=== PATIENT | male | born 1965 | race Caucasian/White ===

== ENCOUNTER 2023-05-13 14:55 | Outpatient (AMB) | payer BC, SELFPAY ==
--- NOTE | 2023-05-13 15:05 | A.OFFVIS_ITS ---
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 Newberry. He has a past medical history of prediabetes, paralysis of the right diaphragm, scoliosis, ED, hyperparathyroidism, asthma, nephrolithiasis, obstructive sleep apnea, hypertension, and obesity. He presents to the office today as a new patient for nephrolithiasis. In discussion with the patient today reports to be doing and feeling well. He reports previously following up with [facility] for the last 12-15 years for his longstanding history of nephrolithiasis. He discusses having a bad experience over this last year and would like to establish urology care. When asked he reports having had multiple previous surgical interventions for nephrolithiasis. He reports noting bilateral flank pain over the last few months however discusses this to be manageable. He otherwise denies any bothersome urinary issues or concerns. He denies urinary urgency, urinary frequency, incontinence, nocturia, hematuria, dysuria, foul smelling urine, changes to urinary stream, fever, and or chills. He is happy with his current voiding parameters. In office urinalysis results reviewed with the patient today. Discussed and stressed the importance of drinking plenty of water daily and adding 1 oz of lemon juice to water daily. Discussed obtaining renal ultrasound for further assessment evaluation. When asked patient reports PCP to be following PSAs annually. He otherwise offers no other issues or concerns at this time. [facility] Medical History Pre-diabetes Paralysis Scoliosis Erectile dysfunction History of hyperparathyroidism Asthma History of kidney stones Obstructive sleep apnea Essential (primary) hypertension Morbid (severe) obesity due to excess calories Review of Systems Const Reports as per HPI Eyes Reports no additional complaints ENT Reports no additional complaints Card Reports as per HPI Resp Reports as per HPI GI Reports no additional complaints Reports as per HPI Musc Reports no additional complaints Neuro Reports no additional complaints Psych Reports no additional complaints Endo Reports as per HPI Physical Exam Const General: cooperative, healthy appearing, comfortable, no acute distress, well developed, alert and awake Orientation/consciousness: patient oriented x3 Limitations: no limitations HEENT Head: Yes normal to inspection, Yes normocephalic and Yes atraumatic Ears: hearing grossly normal bilaterally Eyes General: appearance normal, both eyes and all related structures Neck Neck: Yes normal visual inspection and Yes trachea midline Chest Chest palpation & inspection: normal inspection of the chest Resp Effort & Inspection: normal respiratory effort and able to speak in complete sentences Cardio Rate: regular rate GI Inspection: Yes normal to inspection General: Yes no CVA tenderness Back/Spine/Pelvis Back: no CVA tenderness Skin General skin exam: no rashes or lesions noted Neuro General: patient oriented x3 Extrem General: Yes normal to inspection Psych Appearance: grossly normal and well kempt Mental Status: mental status grossly normal Speech and movement: Normal speech and movement present and Clear speech present Affect: normal affect Attitude: cooperative Thought process: Normal thought process present Thought content: Normal thought content present Insight: Fair insight present (Psych) Judgement: Fair judgement present (Psych) Results AMB Urinalysis, Automated UA Leukoctes 0 Elie/uL Last Edit by [employer] on 05/13/23 16:10 UA Nitrite Negative Last Edit by [employer] on 05/13/23 16:10 UA Urobilinogen 0.2 mg/dL Last Edit by [employer] on 05/13/23 16:10 UA Protein 0 mg/dL Last Edit by [employer] on 05/13/23 16:10 UA pH 6.0 Last Edit by [employer] on 05/13/23 16:10 UA Blood 0 Yosef/uL Last Edit by [employer] on 05/13/23 16:10 UA Specific [place] 1.020 Last Edit by [employer] on 05/13/23 16:10 UA Ketone Negative Last Edit by [employer] on 05/13/23 16:10 UA Bilirubin 0 mg/dL Last Edit by Jovita Gomez on 05/13/23 16:10 UA Glucose 0 mg/dL Last Edit by Jovita Gomez on 05/13/23 16:10 Results Reviewed Results Reviewed: Laboratory Last Values Urine pH (Auto) 6.0 05/13/23 15:06 Specific [place] (Auto) 1.020 05/13/23 15:06 Urine Protein (Auto) 0 mg/dL 05/13/23 15:06 Glucose (UA)(Auto) 0 mg/dL 05/13/23 15:06 Urine Ketones (Auto) Negative 05/13/23 15:06 Urine Blood (Auto) 0 Yosef/uL 05/13/23 15:06 Urine Nitrite (Auto) Negative 05/13/23 15:06 Urine Bilirubin (Auto) 0 mg/dL 05/13/23 15:06 Urine Urobilinogen (Auto) 0.2 mg/dL 05/13/23 15:06 Leukocyte Esterase (Auto) 0 Elie/uL 05/13/23 15:06 Assessment & Plan Assessment & Plan (1) Nephrolithiasis: Code(s): N20.0 - Calculus of kidney Plan In office urinalysis results reviewed with the patient today; as noted above. Will obtain renal ultrasound for further assessment evaluation. Discussed, stress, and educated on the importance of drinking plenty of water daily. Discussed adding 1 oz of lemon juice to water daily. Patient denies any bothersome urinary issues at this time. He is happy with his current voiding parameters. Follow-up in 1-2 months with imaging to be completed prior; or sooner with any issues, concerns, and or questions. Orders: Orders US renal BI Today N20.0 - Calculus of kidney AMB Urinalysis Automated Today Z13.9 - Encounter for screening, unspecified Patient Instructions: The patient had an opportunity to ask questions regarding the treatment plan. All questions were answered. Physical exam, labs, and imaging were discussed and reviewed in detail. As well as risks, benefits, and discussion of treatment choices. No major barriers to understanding were identified. The patient expressed understanding and agreement with the above treatment plan. The patient was made aware they should contact our office by phone for worsening of their current condition, the appearance of new symptoms, or with any questions or concerns. Compliance is encouraged with any medications and follow up testing that is ordered. It is a privilege to be allowed the opportunity to participate in? your urological care.? Again, if you have any questions or concerns If you have any questions or concerns please do not hesitate to contact me. The office is [phone]. This note is constructed using voice recognition software. While every effort has been made to ensure accuracy composition instructor errors may have been included. Yours sincerely, JUDITH Gaming Coding Level of Care Code New Pt Level 3 (95768) Diagnoses Nephrolithiasis N20.0
== END 2023-05-13 16:11 | disposition home or self-care (01) ==
PROVIDERS: PCP Internal Medicine; Visit Provider Nurse Practitioner Family
DX: Z13.9 Encounter for screening, unspecified (principal); N20.0 Calculus of kidney
CPT/HCPCS: 99203

== ENCOUNTER → 2023-05-13 14:55 | Outpatient (BNVA) | payer BC, SELFPAY | PROVIDERS: PCP Internal Medicine; Visit Provider Nurse Practitioner Family | DX: N20.0 Calculus of kidney (principal) | CPT/HCPCS: 81003 ==

== ENCOUNTER 2023-05-25 15:08 | Outpatient (REF) | payer BC, SELFPAY ==
--- NOTE | ~2023-05-25 | US_ITS ---
EXAMINATION: US RETROPERITONEAL LIMITED (RENAL ONLY) CLINICAL INFORMATION: Calculus of kidney. COMPARISON: None available. TECHNIQUE: Real-time imaging of the kidneys. Limited visualization due to bowel gas. FINDINGS: RIGHT KIDNEY: 12.9 x 6.6 x 6.0 cm (SAG x AP x TRV). No hydronephrosis. No renal calculi. Renal cortical thickness is normal. Limited visualization. LEFT KIDNEY: 12.9 x 7.4 x 6.7 cm (SAG x AP x TRV). No hydronephrosis. No renal calculi. Renal cortical thickness is normal. Limited visualization. 2.7 x 2.8 x 2.9 cm midpole cyst with benign features. 5.4 x 4.5 x 5.4 cm upper pole cyst with thin septation. 1.3 x 0.8 x 1.6 cm midpole cyst with benign features. There is no indication for followup imaging. US/US renal BI IMPRESSION: No hydronephrosis. No renal calculi. Limited visualization.
== END 2023-05-25 15:09 | disposition home or self-care (01) ==
LOC: HO.HMGCX 15:08
PROVIDERS: PCP Internal Medicine; Visit Provider Nurse Practitioner Family
DX: N20.0 Calculus of kidney (principal)
CPT/HCPCS: 76775

== ENCOUNTER 2023-06-16 14:55 | Outpatient (AMB) | payer BC, SELFPAY ==
--- NOTE | 2023-06-16 15:08 | A.OFFVIS_ITS ---
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 Newberry. He has a past medical history of prediabetes, paralysis of the right diaphragm, scoliosis, ED, hyperparathyroidism, asthma, nephrolithiasis, obstructive sleep apnea, hypertension, and obesity. He presents to the office today for follow-up. Of note, patient was seen approximately 1 month ago as a new patient for nephrolithiasis at which time a renal ultrasound was ordered for further assessment evaluation. These results reviewed with the patient today. Bilateral kidneys with no hydronephrosis and or calculi noted. Left kidney with 2.7 x 2.8 x 2.9 cm midpole cyst with benign features. 5.4 x 4.5 x 5.4 cm upper pole cyst with thin septation. 1.3 x 0.8 x 1.6 cm midpole cyst with benign features. There is no indication for followup imaging recommended per radiology report. When asked he continues to report right-sided flank pain/back pain. 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 Discussed pain likely related to back pain versus nephrolithiasis. He otherwise denies urinary urgency, urinary frequency, incontinence, nocturia, hematuria, dysuria, foul smelling urine, changes to urinary stream, fever, and or chills. He is happy with his current voiding parameters. In office urinalysis results reviewed with the patient today. Discussed and stressed the importance of drinking plenty of water daily and adding 1 oz of lemon juice to water daily. When asked patient reports PCP to be following PSAs annually. He otherwise offers no other issues or concerns at this time. [facility] Medical History Pre-diabetes Paralysis Scoliosis Erectile dysfunction History of hyperparathyroidism Asthma History of kidney stones Obstructive sleep apnea Essential (primary) hypertension Morbid (severe) obesity due to excess calories Review of Systems Const Reports as per HPI Eyes Reports no additional complaints ENT Reports no additional complaints Card Reports as per HPI Resp Reports as per HPI GI Reports no additional complaints Reports as per HPI Musc Reports no additional complaints Neuro Reports no additional complaints Psych Reports no additional complaints Endo Reports as per HPI Physical Exam Const General: cooperative, healthy appearing, comfortable, no acute distress, well developed, alert and awake Orientation/consciousness: patient oriented x3 Limitations: no limitations HEENT Head: Yes normal to inspection, Yes normocephalic and Yes atraumatic Ears: hearing grossly normal bilaterally Eyes General: appearance normal, both eyes and all related structures Neck Neck: Yes normal visual inspection and Yes trachea midline Chest Chest palpation & inspection: normal inspection of the chest Resp Effort & Inspection: normal respiratory effort and able to speak in complete sentences Cardio Rate: regular rate GI Inspection: Yes normal to inspection General: Yes no CVA tenderness Back/Spine/Pelvis Back: no CVA tenderness Skin General skin exam: no rashes or lesions noted Neuro General: patient oriented x3 Extrem General: Yes normal to inspection Psych Appearance: grossly normal and well kempt Mental Status: mental status grossly normal Speech and movement: Normal speech and movement present and Clear speech present Affect: normal affect Attitude: cooperative Thought process: Normal thought process present Thought content: Normal thought content present Insight: Fair insight present (Psych) Judgement: Fair judgement present (Psych) Results AMB Urinalysis, Automated UA Leukoctes 15 Elie/uL Last Edit by Jovita Gomez on 06/16/23 15:29 UA Nitrite Negative Last Edit by Jovita Gomez on 06/16/23 15:29 UA Urobilinogen 0.2 mg/dL Last Edit by Jovita Gomez on 06/16/23 15:29 UA Protein 0 mg/dL Last Edit by Jovita Gomez on 06/16/23 15:29 UA pH 7.5 Last Edit by Jovita Gomez on 06/16/23 15:29 UA Blood 0 Yosef/uL Last Edit by Jovita Gomez on 06/16/23 15:29 UA Specific [place] 1.010 Last Edit by Jovita Gomez on 06/16/23 15:29 UA Ketone Negative Last Edit by Jovita Gomez on 06/16/23 15:29 UA Bilirubin 0 mg/dL Last Edit by oJvita Gomez on 06/16/23 15:29 UA Glucose 0 mg/dL Last Edit by Jovita Gomez on 06/16/23 15:29 Results Reviewed Results Reviewed: Laboratory Last Values Urine pH (Auto) 7.5 06/16/23 15:11 Specific [place] (Auto) 1.010 06/16/23 15:11 Urine Protein (Auto) 0 mg/dL 06/16/23 15:11 Glucose (UA)(Auto) 0 mg/dL 06/16/23 15:11 Urine Ketones (Auto) Negative 06/16/23 15:11 Urine Blood (Auto) 0 Yosef/uL 06/16/23 15:11 Urine Nitrite (Auto) Negative 06/16/23 15:11 Urine Bilirubin (Auto) 0 mg/dL 06/16/23 15:11 Urine Urobilinogen (Auto) 0.2 mg/dL 06/16/23 15:11 Leukocyte Esterase (Auto) 15 Eile/uL 06/16/23 15:11 Date of Service: 05/25/23 EXAMINATION: US RETROPERITONEAL LIMITED (RENAL ONLY) FINDINGS: RIGHT KIDNEY: 12.9 x 6.6 x 6.0 cm (SAG x AP x TRV). No hydronephrosis. No renal calculi. Renal cortical thickness is normal. Limited visualization. LEFT KIDNEY: 12.9 x 7.4 x 6.7 cm (SAG x AP x TRV). No hydronephrosis. No renal calculi. Renal cortical thickness is normal. Limited visualization. 2.7 x 2.8 x 2.9 cm midpole cyst with benign features. 5.4 x 4.5 x 5.4 cm upper pole cyst with thin septation. 1.3 x 0.8 x 1.6 cm midpole cyst with benign features. There is no indication for followup imaging. IMPRESSION: No hydronephrosis. No renal calculi. Limited visualization. Assessment & Plan Assessment & Plan (1) Nephrolithiasis: Code(s): N20.0 - Calculus of kidney (2) Renal cyst: Code(s): N28.1 - Cyst of kidney, acquired Plan In office urinalysis results reviewed with the patient today; as noted above. Recent renal imaging results reviewed with the patient today; as noted above. Will continue with surveillance monitoring as discussed. Educated, and encouraged on the importance of drinking plenty of water daily. Continue adding 1 oz of lemon juice to water daily. Patient denies any bothersome urinary issues at this time. He reports be happy with current voiding parameters. Will obtain renal ultrasound in 1 year. Follow-up in 1 year with imaging to be completed prior; or sooner with any issues, concerns, and or questions Orders: Orders AMB Urinalysis Automated Today Z13.9 - Encounter for screening, unspecified US renal BI 364 Days N20.0 - Calculus of kidney, N28.1 - Cyst of kidney, acquired Patient Instructions: The patient had an opportunity to ask questions regarding the treatment plan. All questions were answered. Physical exam, labs, and imaging were discussed and reviewed in detail. As well as risks, benefits, and discussion of treatment choices. No major barriers to understanding were identified. The patient expressed understanding and agreement with the above treatment plan. The patient was made aware they should contact our office by phone for worsening of their current condition, the appearance of new symptoms, or with any questions or concerns. Compliance is encouraged with any medications and follow up testing that is ordered. It is a privilege to be allowed the opportunity to participate in? your urological care.? Again, if you have any questions or concerns If you have any questions or concerns please do not hesitate to contact me. The office is [phone]. This note is constructed using voice recognition software. While every effort has been made to ensure accuracy showroom consultant errors may have been included. Yours sincerely, JUDITH Gaming Coding Level of Care Code Est Pt Level 3 (58271) Diagnoses Nephrolithiasis N20.0 Renal cyst N28.1
== END 2023-06-16 15:38 | disposition home or self-care (01) ==
PROVIDERS: PCP Internal Medicine; Visit Provider Nurse Practitioner Family
DX: N20.0 Calculus of kidney (principal); N28.1 Cyst of kidney, acquired; Z13.9 Encounter for screening, unspecified
CPT/HCPCS: 99213

== ENCOUNTER → 2023-06-16 14:55 | Outpatient (BNVA) | payer BC, SELFPAY | PROVIDERS: PCP Internal Medicine; Visit Provider Nurse Practitioner Family | DX: N20.0 Calculus of kidney (principal); N28.1 Cyst of kidney, acquired; R73.03 Prediabetes | CPT/HCPCS: 81003 ==

== ENCOUNTER 2024-06-10 15:17 | Outpatient (REF) | payer BC, SELFPAY ==
--- NOTE | ~2024-06-10 | US_ITS ---
EXAMINATION: US RETROPERITONEAL LIMITED (RENAL ONLY) CLINICAL INFORMATION: Calculus of kidney. COMPARISON: Renal ultrasound 05/25/2023. TECHNIQUE: Real-time imaging of the kidneys. FINDINGS: RIGHT KIDNEY: 12.0 x 6.8 x 5.8 cm (SAG x AP x TRV). The kidney is normal in size and contour. Renal cortical thickness is normal. No calculi or focal parenchymal lesions. No hydronephrosis. LEFT KIDNEY: 14.0 x 8.1 x 6.9 cm (SAG x AP x TRV). The kidney is normal in size and contour. Renal cortical thickness is normal. No renal calculi or hydronephrosis. 5.4 cm cyst in the upper pole with questionable wall calcification. A 3.4 cm cyst in the midpole of the left kidney. US/US renal BI IMPRESSION: 1. No renal calculi or hydronephrosis. 2. 5.4 cm cyst in the upper pole of the left kidney with questionable wall calcification. 3.4 cm cyst in the midpole of the left kidney. Electronically signed by: Rohan Marr MD 06/11/2024 08:06 AM EDT
== END 2024-06-10 15:18 | disposition home or self-care (01) ==
LOC: HO.HMGCX 15:17
PROVIDERS: PCP Internal Medicine; Visit Provider Nurse Practitioner Family
DX: N20.0 Calculus of kidney (principal); N28.1 Cyst of kidney, acquired
CPT/HCPCS: 76775

== ENCOUNTER 2024-06-16 14:38 | Outpatient (AMB) | payer BC, SELFPAY ==
--- NOTE | 2024-06-16 15:03 | A.OFFVIS_ITS ---
Intake Visit Reasons: 1y/US(pending 06/10) Intake Note: Patient presents today for follow up on: kidney stones and ultrasound results Imaging Completed: 06/10/24 Urology Medications: none Blood Thinner: none Corrections Specialist Required: No Accompanied by: Self / Same As Patient Allergies No Known Allergies Allergy (Verified 06/19/24 10:33) Medication List - Last Reconciled 06/19/24 by JUDITH Gaming dulaglutide (Trulicity) mg subcut fluticasone propion-salmeterol 100-50 mcg/dose (Wixela Inhub) 1 ea inhalation BID furosemide 40 mg PO DAILY losartan 50 mg PO DAILY metoprolol succinate ER 25 mg PO DAILY zolpidem 5 mg PO BEDTIME PRN HPI Comments Details: Bjorn is a very pleasant 58-year-old male patient of Dr. Newberry. He has a past medical history of prediabetes, paralysis of the right diaphragm, scoliosis, ED, hyperparathyroidism, asthma, nephrolithiasis, obstructive sleep apnea, hypertension, and obesity. He presents to the office today for follow-up of his nephrolithiasis as well as renal cysts. Recent renal imaging results reviewed with the patient today. 07/03 bilateral kidneys with no calculi or hydronephrosis. Left kidney with 5.4 cm cyst in the upper pole with questionable wall calcification. A 3.4 cm cyst in the mid pole of the left kidney is noted. We discussed stability between imaging. He denies any bothersome urinary issues or concerns. He denies urinary urgency, urinary frequency, incontinence, nocturia, hematuria, dysuria, foul smelling urine, changes to urinary stream, fever, and or chills. He is happy with his current voiding parameters. When asked patient reports PCP to be following PSAs annually. He otherwise offers no other issues or concerns at this time. [facility] Medical History Pre-diabetes Paralysis Scoliosis Erectile dysfunction History of hyperparathyroidism Asthma History of kidney stones Obstructive sleep apnea Essential (primary) hypertension Morbid (severe) obesity due to excess calories Review of Systems Const Reports as per HPI Eyes Reports no additional complaints ENT Reports no additional complaints Card Reports as per HPI Resp Reports as per HPI GI Reports no additional complaints Reports as per HPI Musc Reports no additional complaints Neuro Reports no additional complaints Psych Reports no additional complaints Endo Reports as per HPI Physical Exam Const General: cooperative, healthy appearing, comfortable, no acute distress, well developed, alert and awake Orientation/consciousness: patient oriented x3 Limitations: no limitations HEENT Head: Yes normal to inspection, Yes normocephalic and Yes atraumatic Ears: hearing grossly normal bilaterally Eyes General: appearance normal, both eyes and all related structures Neck Neck: Yes normal visual inspection and Yes trachea midline Chest Chest palpation & inspection: normal inspection of the chest Resp Effort & Inspection: normal respiratory effort and able to speak in complete sentences Cardio Rate: regular rate GI Inspection: Yes normal to inspection General: Yes no CVA tenderness Back/Spine/Pelvis Back: no CVA tenderness Skin General skin exam: no rashes or lesions noted Neuro General: patient oriented x3 Extrem General: Yes normal to inspection Psych Appearance: grossly normal and well kempt Mental Status: mental status grossly normal Speech and movement: Normal speech and movement present and Clear speech present Affect: normal affect Attitude: cooperative Thought process: Normal thought process present Thought content: Normal thought content present Insight: Fair insight present (Psych) Judgement: Fair judgement present (Psych) Results Reviewed Results Reviewed: Date of Service: 06/10/24 EXAMINATION: US RETROPERITONEAL LIMITED (RENAL ONLY) FINDINGS: RIGHT KIDNEY: 12.0 x 6.8 x 5.8 cm (SAG x AP x TRV). The kidney is normal in size and contour. Renal cortical thickness is normal. No calculi or focal parenchymal lesions. No hydronephrosis. LEFT KIDNEY: 14.0 x 8.1 x 6.9 cm (SAG x AP x TRV). The kidney is normal in size and contour. Renal cortical thickness is normal. No renal calculi or hydronephrosis. 5.4 cm cyst in the upper pole with questionable wall calcification. A 3.4 cm cyst in the midpole of the left kidney. IMPRESSION: 1. No renal calculi or hydronephrosis. 2. 5.4 cm cyst in the upper pole of the left kidney with questionable wall calcification. 3.4 cm cyst in the midpole of the left kidney. Assessment & Plan Assessment & Plan (1) Renal cyst: Code(s): N28.1 - Cyst of kidney, acquired Category: Medical (2) Nephrolithiasis: Code(s): N20.0 - Calculus of kidney Category: Medical Plan Unable to obtain urine for urinalysis as patient unable to void. Recent renal imaging results reviewed with the patient today; as noted above. Patient currently denies any bothersome urinary issues or concerns. He reports be happy with current voiding parameters. He continues to follow-up with his PSAs with his PCP. Will obtain renal ultrasound in 1 year. Follow-up in 1 year with imaging to be completed prior; or sooner with any iss ues, concerns, and or questions. Orders: Orders US renal BI 1 Year N20.0 - Calculus of kidney, N28.1 - Cyst of kidney, acquired Patient Instructions: The patient had an opportunity to ask questions regarding the treatment plan. All questions were answered. Physical exam, labs, and imaging were discussed and reviewed in detail. As well as risks, benefits, and discussion of treatment choices. No major barriers to understanding were identified. The patient expressed understanding and agreement with the above treatment plan. The patient was made aware they should contact our office by phone for worsening of their current condition, the appearance of new symptoms, or with any questions or concerns. Compliance is encouraged with any medications and follow up testing that is ordered. It is a privilege to be allowed the opportunity to participate in? your urological care.? Again, if you have any questions or concerns If you have any questions or concerns please do not hesitate to contact me. The office is [phone]. This note is constructed using voice recognition software. While every effort has been made to ensure accuracy real estate leasing agent errors may have been included. Yours sincerely, JUDITH Gaming Coding Level of Care Code Est Pt Level 3 (49677) Diagnoses Renal cyst N28.1 Nephrolithiasis N20.0
== END 2024-06-16 15:24 | disposition home or self-care (01) ==
LOC: HO.HUSH 14:39
PROVIDERS: PCP Internal Medicine; Visit Provider Nurse Practitioner Family
DX: N28.1 Cyst of kidney, acquired (principal); N20.0 Calculus of kidney
CPT/HCPCS: 99213

== ENCOUNTER 2025-01-20 15:13 | Outpatient (REF) | payer BC, SELFPAY ==
--- NOTE | ~2025-01-20 | US_ITS ---
CLINICAL HISTORY: R97.20 - Elevated prostate specific antigen [PSA] renal cysts and stones US Renal Comparison: None Findings: Right kidney measures 12 cm x 6.9 cm Left kidney measures 12.2 cm x 6.9 cm Renal parenchyma within normal limits in echogenicity. No hydronephrosis. No definite renal stones. In the right kidney there are 3 simple anechoic cyst: 1.4 cm cyst in the midpole, 3.2 cm cyst in the midpole and 4.9 cm cyst in the upper pole. Normal color Doppler. Urinary bladder is unremarkable. Prevoid volume 586 mL. Postvoid volume 385 mL. Bilateral ureteral jets were not visualized. Prostate measures 4 cm x 4.5 cm by 4.2 cm. IMPRESSION: 1. No renal stones and no hydronephrosis bilaterally. 2. Left renal 3 simple cysts. 3. Postvoid residual volume 385 mL. This document has been electronically signed by: Brianne Du MD on 01/21/2025 21:20:50
--- OUTSIDE RECORDS SUMMARY | 2025-01-20 15:16 | XMS_ITS | Patient Health Record ---
Author Organization [facility] [address] Address [address] [place] [address] Care Team Providers Care Supervisor Nuclear Medicine Name Role Phone Carlota Guaman Unavailable [phone] LEXI NEWBERRY Unavailable [phone] AKINSROSALINA WILKINS Unavailable [phone] MARCELLA HOANG Unavailable [phone] Allergies No Known Allergies Results Component Value Reference Range Notes UA+Urine Culture Reviewed date:12/01/2024 11:52:16 AM Interpretation: Performing Lab:[facility], [address] [place] [address], Phone - [phone], Director - Shannon Notes/Report: Clinical Information:SRC:UC Clinical Information:SRC:UC Specific Moro 1.011 1.005-1.030 pH 6.0 5.0-7.5 Urine-Color Yellow Yellow Appearance Clear Clear WBC Esterase Negative Negative Protein Negative Negative/Trace Glucose Negative Negative Ketones Negative Negative Occult Blood Negative Negative Bilirubin Negative Negative Urobilinogen,Semi-Qn 0.2 0.2-1.0 mg/dL Nitrite, Urine Negative Negative Microscopic Examination Micr oscopic not indicated and not performed. Urine Culture, Routine Final report Result 1 Culture shows less than 10,000 colony forming units of bacteria per milliliter of urine. This colony count is not generally considered to be clinically significant. UA+Urine Culture Reviewed date:12/02/2024 09:20:22 AM Interpretation: Performing Lab:[facility], [address] [place] [address], [place], Phone - [phone], Director - Shannon Notes/Report: Clinical Information:SRC:UC Specific Moro TNP Test not performed. Patient was unable to provide a self-collected specimen for the requested testing. The following test(s) were not performed: pH TNP Test not perfor med Protein TNP Test not perfor med Glucose TNP Test not perfor med Ketones TNP Test not perfor med Urine Culture, Routine TNP Test not performed PPC Hemoglobin A1C Reviewed date:11/24/2024 02:37:25 PM Interpretation:5.2% Performing Lab: Notes/Report: 5.2% Giovanny Esquivel LP Default Reviewed date:03/22/2024 10:10:57 AM Interpretation: Performing Lab:[facility], [address] [facility], [place], Phone - [phone], Director - Shannon Notes/Report: Giovanny Esquivel LP Default A hand-written panel/profile was received from your office. In accordance with the [facility] Ambiguous Test Code Policy dated February 2003, we have completed your order by using the closest currently or formerly recognized AMA panel. We have assigned Lipid Panel, Test Code #302438 to this request. If this is not the testing you wished to receive on this specimen, please contact the [facility] Client Inquiry/Technical Services Department to clarify the test order. We appreciate your business. Comp. Metabolic Panel (14)-3 Reviewed date:12/02/2024 09:20:44 AM Interpretation: Performing Lab:[facility], [address] [facility], [place], Phone - [phone], Director - Shannon Notes/Report: Clinical Information:SRC: Glucose 105 70-99 mg/dL BUN 15 8-27 mg/dL Creatinine 0.80 0.76-1.27 mg/dL eGFR 101 >59 mL/min/1.73 BUN/Creatinine Ratio 19 10-24 Sodium 140 134-144 mmol/L Potassium 4.7 3.5-5.2 mmol/L Chloride 99 96-106 mmol/L Carbon Dioxide, Total 21 20-29 mmol/L Calcium 9.5 8.6-10.2 mg/dL Protein, Total 7.1 6.0-8.5 g/dL Albumin 4.8 3.8-4.9 g/dL Globulin, Total 2.3 1.5-4.5 g/dL Bilirubin, Total 0.7 0.0-1.2 mg/dL Alkaline Phosphatase 64 44-121 IU/L AST (SGOT) 28 0-40 IU/L ALT (SGPT) 27 0-44 IU/L Comp. Metabolic Panel (14)-3 Reviewed date:03/25/2024 12:05:17 PM Interpretation: Performing Lab[facility], [facility], Phone - [phone], Director - [facility] Notes/Report: Glucose 109 70-99 mg/dL BUN 14 6-24 mg/dL Creatinine 0.75 0.76-1.27 mg/dL eGFR 104 >59 mL/min/1.73 BUN/Creatinine Ratio 19 9-20 Sodium 143 134-144 mmol/L Potassium 4.4 3.5-5.2 mmol/L Chloride 103 96-106 mmol/L Carbon Dioxide, Total 24 20-29 mmol/L Calcium 9.2 8.7-10.2 mg/dL Protein, Total 6.9 6.0-8.5 g/dL Albumin 4.6 3.8-4.9 g/dL Globulin, Total 2.3 1.5-4.5 g/dL Bilirubin, Total 0.9 0.0-1.2 mg/dL Alkaline Phosphatase 69 44-121 IU/L AST (SGOT) 26 0-40 IU/L ALT (SGPT) 36 0-44 IU/L Lipid Panel-[id number] Reviewed date:03/22/2024 10:57:25 AM Interpretation: Performing Lab:[facility], [address] [facility], [place], Phone - [phone], Director - [facility] Notes/Report: Cholesterol, Total 200 100-199 mg/dL Triglycerides 83 0-149 mg/dL HDL Cholesterol 64 >39 mg/dL VLDL Cholesterol Kosta 15 5-40 mg/dL LDL Chol Calc (NIH) 121 0-99 mg/dL Ambig Abbrev CMP14 Default A hand-written panel/profile was received from your office. In accordance with the [facility] Policy dated February 2003, we have completed your order by using the closest currently or formerly recognized AMA panel. We have assigned Comprehensive Metabolic Panel (14), Test Code #[id number] to this request. If this is not the testing you wished to receive on this specimen, please contact the [facility] Client Inquiry/Technical Services Department to clarify the test order. We appreciate your business. CBC With Differential/Platel et-[id number] Reviewed date:12/02/2024 09:20:12 AM Interpretation: Performing Lab:[facility], [address] [facility], Phone - [phone], Director - MDGissely Notes/Report: Clinical Information:SRC: WBC 6.0 3.4-10.8 x10E3/uL RBC 4.72 4.14-5.80 x10E6/uL Hemoglobin 15.7 13.0-17.7 g/dL Hematocrit 44.7 37.5-51.0 % MCV 95 79-97 fL MCH 33.3 26.6-33.0 pg MCHC 35.1 31.5-35.7 g/dL RDW 12.1 11.6-15.4 % Platelets 225 150-450 x10E3/uL Neutrophils 58 Not Estab. % Lymphs 26 Not Estab. % Monocytes 11 Not Estab. % Eos 5 Not Estab. % Basos 0 Not Estab. % Neutrophils (Absolute) 3.5 1.4-7.0 x10E3/uL Lymphs (Absolute) 1.6 0.7-3.1 x10E3/uL Monocytes(Absolute) 0.6 0.1-0.9 x10E3/uL Eos (Absolute) 0.3 0.0-0.4 x10E3/uL Baso (Absolute) 0.0 0.0-0.2 x10E3/uL Immature Granulocytes 0 Not Estab. % Immature Grans (Abs) 0.0 0.0-0.1 x10E3/uL CBC With Differential/Platel et-[id number] Reviewed date:03/22/2024 11:18:12 AM Interpretation: Performing Lab:[facility], [address] [facility], [place], Phone - [phone], Director - Shannon Notes/Report: WBC 6.1 3.4-10.8 x10E3/uL RBC 4.91 4.14-5.80 x10E6/uL Hemoglobin 16.2 13.0-17.7 g/dL Hematocrit 48.0 37.5-51.0 % MCV 98 79-97 fL MCH 33.0 26.6-33.0 pg MCHC 33.8 31.5-35.7 g/dL RDW 12.5 11.6-15.4 % Platelets 233 150-450 x10E3/uL Neutrophils 67 Not Estab. % Lymphs 22 Not Estab. % Monocytes 9 Not Estab. % Eos 2 Not Estab. % Basos 0 Not Estab. % Neutrophils (Absolute) 4.1 1.4-7.0 x10E3/uL Lymphs (Absolute) 1.4 0.7-3.1 x10E3/uL Monocytes(Absolute) 0.6 0.1-0.9 x10E3/uL Eos (Absolute) 0.1 0.0-0.4 x10E3/uL Baso (Absolute) 0.0 0.0-0.2 x10E3/uL Immature Granulocytes 0 Not Estab. % Immature Grans (Abs) 0.0 0.0-0.1 x10E3/uL Urinalysis, Complete-[id number] Reviewed date:03/25/2024 12:06:32 PM Interpretation: Performing Lab:[facility] [place], [address] [place] [address], Phone - [phone], [facility] - [facility] Notes/Report: Specific Moro 1.010 1.005-1.030 pH 6.5 5.0-7.5 Urine-Color Yellow Yellow Appearance Clear Clear WBC Esterase Trace Negative Protein Negative Negative/Trace Glucose Negative Negative Ketones Negative Negative Occult Blood Negative Negative Bilirubin Negative Negative Urobilinogen,Semi-Qn 0.2 0.2-1.0 mg/dL Nitrite, Urine Negative Negative Microscopic Examination See below: Micr oscopic was indicated and was performed. WBC 0-5 0 - 5 /hpf RBC None seen 0 - 2 /hpf Epithelial Cells (non renal) None seen 0 - 10 /hpf Casts None seen None seen /lpf Bacteria None seen None seen/Few PSA Total+% Free-[id number] Reviewed date:12/07/2024 08:44:14 AM Interpretation: Performing Lab:[facility] [place], [address] [facility], [place], Phone - [phone], Director - MDJoy Notes/Report: Clinical Information:SRC: Prostate Specific Ag 6.1 0.0-4.0 ng/mL Neri ECLIA methodology. . According to the [employer], Serum PSA should decrease and remain at undetectable levels after radical prostatectomy. The AUA defines biochemical recurrence as an initial PSA value 0.2 ng/mL or greater followed by a subsequent confirmatory PSA value 0.2 ng/mL or greater. Values obtained with different assay methods or kits cannot be used interchangeably. Results cannot be interpreted as absolute evidence of the presence or absence of malignant disease. PSA, Free 0.97 N/A ng/mL Neri ECLIA met hodology. % Free PSA 15.9 The table below lists the probability of prostate cancer for men with non-suspicious SADIE results and total PSA between 4 and 10 ng/mL, by patient age (Daryl et al, ZACK 1998, 279:1542). % Free PSA 50-64 yr 65-75 yr 0.00-10.00% 56% 55% 10.01-15.00% 24% 35% 15.01-20.00% 17% 23% 20.01-25.00% 10% 20% >25.00% 5% 9% Please note: Daryl et al did not make specific recommendations regarding the use of percent free PSA for any other population of men. Request Problem TNP Test not performed. Patient was unable to provide a self-collected specimen for the requested testing. The following test(s) were not performed: TEST: [id number] UA+Urine Culture Lipid Panel-[id number] Reviewed date:12/02/2024 09:20:33 AM Interpretation: Performing Lab:[facility], [address] [place] [address], [place], Phone - [phone], Director - Shannon Notes/Report: Clinical Information:SRC:UC Cholesterol, Total 205 100-199 mg/dL Triglycerides 87 0-149 mg/dL HDL Cholesterol 64 >39 mg/dL VLDL Cholesterol Kosta 16 5-40 mg/dL LDL Chol Calc (NIH) 125 0-99 mg/dL Reason For Referral Diagnosis 1 Colon cancer screeni ng (Z12.11) [facility] [address] [facility] Referring Provider First Name LEXI Referring Provider Last Name NILAM Referring Provider Speciality Internal M edicine Referred Provider Specialty Gastroentero logy General Notes faxed to Nany Ferrari [facility] [id number], [phone], [phone], Neptali Riddle 08/18/2024 11:22:55 AM > Clinical Notes Stef Hernandez 12/2024 01:39:29 PM > [phone] phone, Stef Hernandez 09/14/2024 01:43:11 PM > I called the office, and they informed me that the patient is not due for a colonoscopy until July 2025. I relayed this information to the patient and provided the office phone number in case he wants to schedule a colonoscopy for next year Referral Priority Routine Medications Medication SIG (Take, Route, Frequency, Duration) Notes Start Date End Date Status Wixela Inhub 100-50 MCG/ACT INHALE 1 PUFF BY MOUTH TWICE DAILY for 90 days Active Zolpidem Tartrate 5 MG 1 tablet at bedtime as needed Orally Once a day for 90 days 11/24/2024 Active Mounjaro 7.5 MG/0.5ML 0.5ML Subcutaneous once weekly for 30 days replaces ozempic Active Cialis 20 MG 1 tablet as needed Orally Once a day as needed for 90 days 11/25/2021 Active Metoprolol Succinate ER 25 MG TAKE 1 TABLET BY MOUTH EVERY DAY for 90 days Active Losartan Potassium 50 MG TAKE 1 TABLET BY MOUTH DAILY for 90 days Active Furosemide 40 MG 1 tablet Orally Once a day for 90 days Active Immunizations Vaccine Route Administration Date Status Comme nts influenza IM Intramuscular 07/04/2024 Administered SHINGRIX IM Intramuscular 07/20/2023 Administered SHINGRIX IM Intramuscular 03/21/2024 Administered Social History Tobacco Use: Social History Observation Description Date Details (start date - stop date) Former Smoker NA - NA Tobacco Use/Smoking Question Answer Notes Are you a former smoker How long has it been since you last smoked? 5-10 years Alcohol Screen (Audit-C) Question Answer Notes Did you have a drink contain ing alcohol in the past year? Yes How often did you have a dri nk containing alcohol in the past year? 4 or more times a week (4 points) How many drinks did you have on a typical day when you were drinking in the past year? 3 or 4 drinks (1 point) How often did you have 6 or more drinks on one occasion in the past year? Daily or almost daily (4 points) Points 9 Interpretation Positive Section Notes: QUIT 2008 - 08/11 PPD FOR 20 Y RS. QUIT 08/11 PPD FOR 20 Y RS. QUIT 08/11 PPD FOR 20 Y RS. QUIT 08/11 PPD FOR 20 Y RS. QUIT 08/11 PPD FOR 20 Y RS. QUIT 08/11 PPD FOR 20 Y RS. QUIT 08/11 PPD FOR 20 Y RS. QUIT 2009 - 1/2 PPD FOR 20 Y RS. QUIT 2009 - 1/2 PPD FOR 20 Y RS. QUIT 2009 - 08/11 PPD FOR 20 Y RS. QUIT 2009 - 08/11 PPD FOR 20 Y RS. QUIT 2009 - 08/11 PPD FOR 20 Y RS. QUIT 2009 - 08/11 PPD FOR 20 Y RS. QUIT 2009 - 08/11 PPD FOR 20 Y RS. QUIT 2009 - 08/11 PPD FOR 20 Y RS. QUIT 2009 - 08/11 PPD FOR 20 Y RS. QUIT 2009 - 08/11 PPD FOR 20 Y RS. QUIT 2009 - 08/11 PPD FOR 20 Y RS. QUIT 2009 - 08/11 PPD FOR 20 Y RS. QUIT 2009 - 08/11 PPD FOR 20 Y RS. QUIT 2009 - 08/11 PPD FOR 20 Y RS. QUIT 2009 - 08/11 PPD FOR 20 Y RS. QUIT 2009 - 08/11 PPD FOR 20 Y RS. QUIT 2009 - 08/11 PPD FOR 20 Y RS. QUIT 2009 - 08/11 PPD FOR 20 Y RS. QUIT 2009 - 08/11 PPD FOR 20 Y RS. QUIT 2009 - 08/11 PPD FOR 20 Y RS. QUIT 2009 - 08/11 PPD FOR 20 Y RS. QUIT 2009 - 08/11 PPD FOR 20 Y RS. QUIT 2009 - 08/11 PPD FOR 20 Y RS. QUIT 2008 - 08/11 PPD FOR 20 Y RS. QUIT 2009 - 08/11 PPD FOR 20 Y RS. QUIT 2009 - 08/11 PPD FOR 20 Y RS. QUIT 2009 - 08/11 PPD FOR 20 Y RS. Problems Problem Type SNOMED Code ICD Code Onset Dates Problem Status W/U Status Risk Notes Problem 48459583 Type 2 diabetes mellitus with unspecified complications (E11.8) Active confirmed Problem Hyperlipidemia (05744666) Hyperlipidemia, unspecified (E78.5) Active confirmed Problem 418935605 Other insomnia (G47.09) Active confirmed Problem 27335644 Other chronic pa in (G89.29) Active confirmed Problem Essential hypertension (33105174) Essential (primary) hypertension (I10) Active confirmed Problem Exacerbation of asthma (389253982) Unspecified asthma with (acute) exacerbation (J45.901) Active confirmed Problem 983866236 Encounter for [facility] adult medical examination without abnormal findings (Z00.00) Active confirmed Problem Body mass index 40+ - severely obese (358293085) Body mass index (BMI) 40.0-44.9, adult (Z68.41) Active confirmed Problem Morbid obesity (953706920) Morbid obesity (E66.01) Active confirmed Problem 37330236 Hyperlipidemia, unspecified hyperlipidemia type (E78.5) Active confirmed Problem 8547679 Acquired hyperlipoproteinemia (E78.5) Active confirmed Problem Adult health examination (792773729) Adult general medical exam (Z00.00) Active confirmed Problem Annual health maintenance examination (27601214) Annual physical exam (Z00.00) Active confirmed Problem Accelerated essential hypertension (30677372) Accelerated essential hypertension (I10) Active confirmed Problem 655118331 Erectile dysfunc tion, unspecified erectile dysfunction type (N52.9) Active confirmed Problem Aneurysm (19659846) Aneurysm (I72.9) Active confirmed Problem Renal stone (60875099) Renal stone (N20.0) Active confirmed Problem 996039850 Mild persistent asthma without complication (J45.30) Active confirmed Problem 530003301 Obesity, Class I II, BMI 40-49.9 (morbid obesity) (E66.01) Active confirmed Problem Screening for malignant neoplasm of prostate (882845316) Encounter for prostate cancer screening (Z12.5) Active confirmed Problem Lipid screening (331387331) Lipid screening (Z13.220) Active confirmed Problem 855251765 Lumbar back pain (M54.50) Active confirmed Vital Signs Heart Rate 76 /min 01/04/2025 Oximetry 96 % 01/04/2025 Blood pressure diastolic 80 mm Hg 01/04/2025 Height 66 in 01/04/2025 Blood pressure systolic 120 mm Hg 01/04/2025 Weight 270 lbs 01/04/2025 BMI 43.57 kg/m2 01/04/2025 Encounters Encounter Location Date Provider Diagnosis [facility] [address] [place] [address] 03/21/2024 LEXI NEWBERRY Type 2 diabetes jessica itus with unspecified complications E11.8 ; Shortness of breath R06.02 ; Hyperlipidemia, unspecified E78.5 ; Essential (primary) hypertension I10 ; Adult general medical exam Z00.00 and Encounter for immunization Z23 [facility] [address] [place] [phone] 05/10/2024 MARCELLA HOANG Soft tissue infectio n L08.[address] [facility] [address] [place] [address] 07/04/2024 LEXI NEWBERRY Shortness of breath R06.02 ; Hyperlipidemia, unspecified E78.5 ; Morbid obesity E66.01 ; Body mass index (BMI) 40.0-44.9, adult Z68.41 and Encounter for immunization Z23 [facility] [address] 08/18/2024 LEXI NEWBERRY Annual physical exam Z00.00 ; Lipid screening Z13.220 ; Accelerated essential hypertension I10 ; Encounter for prostate cancer screening Z12.5 and Morbid obesity E66.01 [facility] [address] 10/24/2024 Carlota Svrcek Sore throat J02.9 [facility] [address] 11/24/2024 Carlota Svrcek Type 2 diabetes jessica itus with unspecified complications E11.8 ; Essential (primary) hypertension I10 ; Morbid obesity E66.01 ; Elevated PSA R97.20 ; Erectile dysfunction, unspecified erectile dysfunction type N52.9 ; Other insomnia G47.09 and Mild persistent asthma without complication J45.30 [facility] [address] 01/04/2025 Carlota Svrcek Essential (primary) hypertension I10 ; Type 2 diabetes mellitus with unspecified complications E11.8 ; Morbid obesity E66.01 and Mild persistent asthma without complication J45.30 [facility] [address] 03/21/2024 LEXI NEWBERRY Essential (primary) hypertension I10 [facility] [address] 05/10/2024 LEXI NEWBERRY [facility] [address] [place] [address] 06/27/2024 LEIX NEWBERRY [facility] [address] [place] [address] 07/04/2024 LEXI NEWBERRY Type 2 diabetes jessica itus with unspecified complications E11.[address] [facility] [address] [place] [address] 07/21/2024 ROSALINA AKINS [facility] [address] [place] [address] 08/09/2024 TALAL NEWBERRY [facility] [address] [place] [address] 08/18/2024 TALAL NEWBERRY [facility] [address] [place] [address] 09/02/2024 TALAL NEWBERRY [facility] [address] [place] [address] 09/14/2024 TALAL NEWBERRY [facility] [address] [place] [address] 10/12/2024 TALAL NEWBERRY [facility] [address] [place] [address] 10/24/2024 Carlota Svrcek [facility] [address] [facility] [address] [place] [address] 11/22/2024 Carlota Svrcek [facility] [address] [facility] [address] [place] [address] 12/19/2024 Carlota Svrcek Type 2 diabetes jessica itus with unspecified complications E11.8 [facility] [address] [facility] [address] [address] 12/20/2024 Carlota Svrcek Type 2 diabetes jessica itus with unspecified complications E11.8 Assessments Encounter Date Diagnosis (ICD Code) Assessment Notes Treatment Notes Treatment Clinical Notes Section Notes 05/10/2024 Soft tissue infection (ICD-10 - L08.9) Pearl is a 58-year-old male with history of hypertension, obesity, and obstructive sleep apnea who presents the office today for urgent care visit for wound on second left toe. Patient notes that when he was carrying laundry up the stairs 2 days ago he hit his toe on the cement stair and caused a laceration. Today he reports mild throbbing sensation in the toe as well as some bleeding and expression of purulent fluid last night. He denies fever, chills, chest pain, shortness of breath, GI symptoms, weakness, or fatigue. On physical exam the left second toe is mildly erythematous around the area of the laceration. Laceration is very superficial and it is mildly tender to palpation. No evidence of any purulent material that can be expressed at this time. Given clinical presentation will prescribe doxycycline for management of mild soft tissue infection. Patient to take doxycycline twice daily for 7 days. Advised to finish the entire course of antibiotics. Advised to return to the office sooner if he develops worsening symptoms. Educated to go to the emergency department if he develops fever, chills, and shortness of breath, chest pain, or worsening erythema or pain in the extremity. He demonstrates understanding. Patient has follow-up scheduled for complete physical exam in August 2024. Advised to return soon to the office if necessary 03/21/2024 Essential (primary) hypertension (ICD-10 - I10) 10/24/2024 Sore throat (ICD-10 - J02.9) #Pharyngitis. Moderate erythema and swelling to right posterior pharynx and tonsil. Rapid strep negative. Covid/flu RSV swab pending. No obvious peritonsillar abscess on exam. Patient is afebrile. Discussed at length. Will start antibiotics and prednisone. Discussed signs and symptoms to monitor for. Reviewed ED precautions in detail. Advised to follow-up with me if no improvement in 2 to 3 days sooner with any new or worsening symptoms. Continue Tylenol if needed. Warm salt water gargles. Push fluids and rest. Work note given. Case discussed with collaborating physician Ruth Ann Newberry who reviewed the assessment and plan. Chart, medications, labs, vital signs reviewed. Dictation was accomplished with the use of [employer]ago voice recognition software, prone to medical misidentifications and grammatical errors. This is unintentional and the practitioner does try to identify and correct these, but some could still be present. Please do not hesitate to contact practitioner for clarification. All questions answered to patients satisfaction. Patient verbalized understanding of diagnosis and treatments explained. To call sooner prior to next visit it any questions/concerns arise. 12/19/2024 Type 2 diabetes mellitus with unspecified complications (ICD-10 - E11.8) 12/20/2024 Type 2 diabetes mellitus with unspecified complications (ICD-10 - E11.8) 01/04/2025 Type 2 diabetes mellitus with unspecified complications (ICD-10 - E11.8) #Type 2 diabetes. A1c well-controlled in the office 5.4. Transitioned from Ozempic to Mounjaro last visit. Tolerating well. Not yet noticing appetite suppression. Will plan to titrate Mounjaro dose up to 7.5 mg dose prior to next visit. Continue to work on healthy diet, increase protein in diet and work on consistent exercise. Follow up 8 weeks, sooner with any concerns. #Hypertension. Well-controlled on current regimen. #Morbid obesity. He is actively working on weight reduction. Now on Mounjaro and titrating dose. Follow up in 8 weeks. Continue to work on lifestyle modifications. #Asthma. Has been well-controlled continue current regimen. Case discussed with collaborating physician Patricia Newberry who reviewed the assessment and plan. Chart, medications, labs, vital signs reviewed. Dictation was accomplished with the use of [employer] voice recognition software, prone to medical misidentifications and grammatical errors. This is unintentional and the practitioner does try to identify and correct these, but some could still be present. Please do not hesitate to contact practitioner for clarification. All questions answered to patients satisfaction. Patient verbalized understanding of diagnosis and treatments explained. To call sooner prior to next visit it any questions/concerns arise. 01/04/2025 Essential (primary) hypertension (ICD-10 - I10) #Type 2 diabetes. A1c well-controlled in the office 5.4. Transitioned from Ozempic to Mounjaro last visit. Tolerating well. Not yet noticing appetite suppression. Will plan to titrate Mounjaro dose up to 7.5 mg dose prior to next visit. Continue to work on healthy diet, increase protein in diet and work on consistent exercise. Follow up 8 weeks, sooner with any concerns. #Hypertension. Well-controlled on current regimen. #Morbid obesity. He is actively working on weight reduction. Now on Mounjaro and titrating dose. Follow up in 8 weeks. Continue to work on lifestyle modifications. #Asthma. Has been well-controlled continue current regimen. Case discussed with collaborating physician Patricia Newberry who reviewed the assessment and plan. Chart, medications, labs, vital signs reviewed. Dictation was accomplished with the use of [employer] voice recognition software, prone to medical misidentifications and grammatical errors. This is unintentional and the practitioner does try to identify and correct these, but some could still be present. Please do not hesitate to contact practitioner for clarification. All questions answered to patients satisfaction. Patient verbalized understanding of diagnosis and treatments explained. To call sooner prior to next visit it any questions/concerns arise. 08/18/2024 Annual physical exam (ICD-10 - Z00.00) Patient seen and examined. Comprehensive discussion was done on the following. 1. Nutrition: It is important to follow a healthy diet based on lots of vegetables and legumes and good fat. Avoid processed food and processed carbohydrates. Learn to prepare your own meals. Learn to read labels and avoid high fructose corn syrup, processed chemicals added to increase shelf life and preprepared meals. Avoid fast foods. Learn to eat slowly and plan meals for a week. Try to count calories and be mindful off daily calorie intake. Get into the habit of keeping an eye on your weight by using an appropriate scale. Learn to log exercise and discussed fitness Apps like [employer] which can help keep log off calories taken versus calories burned. Local food should be preferred. Discussed Dirty Dozen Versus Clean Fifteen. Discussed healthy supplements like fish oil, Tumeric, Curcumin, Melatonin, Resveratrol, Probiotics, Vitamin-D, Alpha-Lipoic acid, Vitamin-D and coconut oil. 2. It is important to exercise regularly. Is a good habit to walk at least 30-45 minutes a day. Gentle weightlifting with standard precautions to protect the back. Finding activity like cycling or hiking and get into the habit of engaging in it. Stretching before and after the exercises important. It is also important to contact me if there are any problems like shortness of breath, chest pain, back pain and joint or muscle pain associated with the exercise. 3. Discussed age appropriate screening guidelines. Colonoscopy needs to start at age 50 with stool for occult blood as appropriate. There is a new test that can test for genetic abnormalities in the stool sample. This would not replace a colonoscopy but could be used as a screening tool for patients who do not want a colonoscopy. We discussed the importance of early detection of colon cancer. 4. Discussed current PSA screening. PSA screening can be done in most patients between age 50 and 65. However early detection of prostate cancer needs to carefully be balanced with complications with treatment. These include incontinence, impotence etc. Each patient should decide if they would like to have this test. 5. Discussed safe driving and no use of smart phone while driving 6. Age-appropriate immunizations were discussed. A tetanus booster is needed every 10 years. Flu vaccine is recommended every year just before the start of the flu season. Shingles vaccine is recommended after age 50 but not all insurances cover it. Pneumonia vaccine is given after age 65 unless there are certain comorbidities for which it is started earlier. 7. Diagnostic labs were discussed. These could include CBC CMP and lipids with fasting blood glucose and insulin levels. Vitamin D and hemoglobin A1c testing might be appropriate. 03/21/2024 Type 2 diabetes mellitus with unspecified complications (ICD-10 - E11.8) 58-year-old male with PMH of hypertension, obesity, asthma, type 2 diabetes, aneurysm, renal stones presents for follow-up. Unable to complete lab work prior to todays visit. #BMI 43: Patient on Ozempic 2 mg weekly injections. He does still consume 1-2 beers daily with more on the weekends. He is encouraged to limit this intake, to avoid refined carbohydrates, increase intake of vegetables, proteins, and whole grains. He exercises on the treadmill 3 times per week. He is encouraged to continue this and to attempt to hit 8,000 steps 5 days per week. Patient had 10lbs weight loss since last visit on 10/2023. #Diabetes: Most recent A1c is 5.3 with glucose of 126. Denies polyuria, polydipsia, neuropathy, vision changes. Will continue Ozempic. #History of aortic aneurysm: Patient follows with cardiology. Has upcoming appoitnemnt and ultrasound in October 2024. Will continue Toprol 25 mg, furosemide 40 mg daily, and losartan 50 mg daily. #Asthma: Patient is followed by Pulmonolgy. Requesting albuterol refill. States symptoms are well controlled #Shingles immunization 2nd dose administered today Will reviewed lab work that patient completed at todays visit including CBC, CMP, lipid panel ordered. Follow-up in 5-6 months. Advised to call sooner if new symptoms arise. 03/21/2024 Shortness of breath (ICD-10 - R06.02) 58-year-old male with PMH of hypertension, obesity, asthma, type 2 diabetes, aneurysm, renal stones presents for follow-up. Unable to complete lab work prior to todays visit. #BMI 43: Patient on Ozempic 2 mg weekly injections. He does still consume 1-2 beers daily with more on the weekends. He is encouraged to limit this intake, to avoid refined carbohydrates, increase intake of vegetables, proteins, and whole grains. He exercises on the treadmill 3 times per week. He is encouraged to continue this and to attempt to hit 8,000 steps 5 days per week. Patient had 10lbs weight loss since last visit on 10/2023. #Diabetes: Most recent A1c is 5.3 with glucose of 126. Denies polyuria, polydipsia, neuropathy, vision changes. Will continue Ozempic. #History of aortic aneurysm: Patient follows with cardiology. Has upcoming appoitnemnt and ultrasound in October 2024. Will continue Toprol 25 mg, furosemide 40 mg daily, and losartan 50 mg daily. #Asthma: Patient is followed by Pulmonolgy. Requesting albuterol refill. States symptoms are well controlled #Shingles immunization 2nd dose administered today Will reviewed lab work that patient completed at todays visit including CBC, CMP, lipid panel ordered. Follow-up in 5-6 months. Advised to call sooner if new symptoms arise. 11/24/2024 Essential (primary) hypertension (ICD-10 - I10) #Type 2 diabetes. A1c well-controlled in the office 5.2. He has been on Ozempic and tolerating it well. However weight has plateaued and is interested in trying other medications to also help with weight management. Discussed options. Will submit for Mounjaro and follow-up pending PA determination. We did discuss risk benefits adverse effects of medication in detail. Demonstrated proper use of pen autoinjector here in office. F/u 6 weeks. #Hypertension. Well-controlled on current regimen. Medications refilled today. #Morbid obesity. He is actively working on weight reduction. Will try transitioning to Mounjaro as above with hope to help with decreasing weight and overall health risk factors. #Elevated PSA. Mildly elevated on recent labs at 6. Denies any urinary symptoms. Will fax copy of results to his urologist. He does report he has an upcoming visit with them in the next month or so. #Erectile dysfunction. Requesting refill of Cialis. #Insomnia. Using Ambien 3-4 times a week. Requesting refill. MassPAT reviewed. Refill sent. #Asthma. Has been well-controlled continue current regimen. Case discussed with collaborating physician Patricia Newberry who reviewed the assessment and plan. Chart, medications, labs, vital signs reviewed. Dictation was accomplished with the use of [employer] voice recognition software, prone to medical misidentifications and grammatical errors. This is unintentional and the practitioner does try to identify and correct these, but some could still be present. Please do not hesitate to contact practitioner for clarification. All questions answered to patients satisfaction. Patient verbalized understanding of diagnosis and treatments explained. To call sooner prior to next visit it any questions/concerns arise. 11/24/2024 Type 2 diabetes mellitus with unspecified complications (ICD-10 - E11.8) #Type 2 diabetes. A1c well-controlled in the office 5.2. He has been on Ozempic and tolerating it well. However weight has plateaued and is interested in trying other medications to also help with weight management. Discussed options. Will submit for Mounjaro and follow-up pending PA determination. We did discuss risk benefits adverse effects of medication in detail. Demonstrated proper use of pen autoinjector here in office. F/u 6 weeks. #Hypertension. Well-controlled on current regimen. Medications refilled today. #Morbid obesity. He is actively working on weight reduction. Will try transitioning to Mounjaro as above with hope to help with decreasing weight and overall health risk factors. #Elevated PSA. Mildly elevated on recent labs at 6. Denies any urinary symptoms. Will fax copy of results to his urologist. He does report he has an upcoming visit with them in the next month or so. #Erectile dysfunction. Requesting refill of Cialis. #Insomnia. Using Ambien 3-4 times a week. Requesting refill. MassPAT reviewed. Refill sent. #Asthma. Has been well-controlled continue current regimen. Case discussed with collaborating physician Patricia Newberry who reviewed the assessment and plan. Chart, medications, labs, vital signs reviewed. Dictation was accomplished with the use of [employer] voice recognition software, prone to medical misidentifications and grammatical errors. This is unintentional and the practitioner does try to identify and correct these, but some could still be present. Please do not hesitate to contact practitioner for clarification. All questions answered to patients satisfaction. Patient verbalized understanding of diagnosis and treatments explained. To call sooner prior to next visit it any questions/concerns arise. 07/04/2024 Type 2 diabetes mellitus with unspecified complications (ICD-10 - E11.8) 07/04/2024 Shortness of breath (ICD-10 - R06.02) Pearl is a pleasant 58 year old male with a past medical history of Morbid (severe) obesity due to excess calories, Essential (primary) hypertension, History of kidney stones, Asthma, Obstructive sleep apnea, History of hyperparathyroidism, unspecified erectile dysfunction type, Scoliosis of thoracic spine, History of R diaphragm paralysis, and Prediabetes, presenting to the clinic for a follow up visit. # Obesity: Currently taking Ozempic 2 mg. Endorses little to no improvement with weight. Last weight was 267 lbs and current weight is 264 lbs. Discussed idea of incorporating more exercise into daily routine. Discussed trialing Zepbound/Tirzepatide due to failure of Ozempic in helping the concern. Patient agrees to trialing Zepbound/Tirzepatide . # Essential Hypertension: Stable. Blood pressure reading today was 146/89 and 130/80. Currently taking Metoprolol XL 25 MG Tablet, Furosemide 40 MG Tablet (occasionally takes), and Losartan Potassium 50 MG Tablet. Will continue Metoprolol XL 25 MG Tablet, Furosemide 40 MG Tablet (occasionally takes), and Losartan Potassium 50 MG Tablet. Discussed the importance of weight loss as this may also help reduce blood pressure. # Asthma: Stable. Currently taking Wixela Inhub 100-50 MCG/ACT. Currently sees a model and pattern supervisor. Will follow with model and pattern supervisor. # Obstructive Sleep Apnea: Stable. States wearing a ventilator, not a CPAP to sleep. Discussed importance of weight loss in assisting with the management of obstructive sleep apnea. WIll continue to monitor. # History of Kidney Stones: Stable. Had ultrasound 1 month ago, ordered by urologist, which shows no stones. # Influenza vaccine: Discussed importance of influenza vaccine due to patient's risk factors such as age, asthma, and phrenic nerve injury. Patient agreed to vaccination. Administered influenza vacccine to left deltoid on 07/04/2024. Will follow up on 08/18/2024 for complete physical exam. Informed patient if any new or worsening concerns arise, they are welcome to contact the office and be reevaluated. 07/04/2024 Hyperlipidemia, unspecified (ICD-10 - E78.5) Pearl is a pleasant 58 year old male with a past medical history of Morbid (severe) obesity due to excess calories, Essential (primary) hypertension, History of kidney stones, Asthma, Obstructive sleep apnea, History of hyperparathyroidism, unspecified erectile dysfunction type, Scoliosis of thoracic spine, History of R diaphragm paralysis, and Prediabetes, presenting to the clinic for a follow up visit. # Obesity: Currently taking Ozempic 2 mg. Endorses little to no improvement with weight. Last weight was 267 lbs and current weight is 264 lbs. Discussed idea of incorporating more exercise into daily routine. Discussed trialing Zepbound/Tirzepatide due to failure of Ozempic in helping the concern. Patient agrees to trialing Zepbound/Tirzepatide . # Essential Hypertension: Stable. Blood pressure reading today was 146/89 and 130/80. Currently taking Metoprolol XL 25 MG Tablet, Furosemide 40 MG Tablet (occasionally takes), and Losartan Potassium 50 MG Tablet. Will continue Metoprolol XL 25 MG Tablet, Furosemide 40 MG Tablet (occasionally takes), and Losartan Potassium 50 MG Tablet. Discussed the importance of weight loss as this may also help reduce blood pressure. # Asthma: Stable. Currently taking Wixela Inhub 100-50 MCG/ACT. Currently sees a model and pattern supervisor. Will follow with model and pattern supervisor. # Obstructive Sleep Apnea: Stable. States wearing a ventilator, not a CPAP to sleep. Discussed importance of weight loss in assisting with the management of obstructive sleep apnea. WIll continue to monitor. # History of Kidney Stones: Stable. Had ultrasound 1 month ago, ordered by urologist, which shows no stones. # Influenza vaccine: Discussed importance of influenza vaccine due to patient's risk factors such as age, asthma, and phrenic nerve injury. Patient agreed to vaccination. Administered influenza vacccine to left deltoid on 07/04/2024. Will follow up on 08/18/2024 for complete physical exam. Informed patient if any new or worsening concerns arise, they are welcome to contact the office and be reevaluated. 11/24/2024 Morbid obesity (ICD-10 - E66.01) #Type 2 diabetes. A1c well-controlled in the office 5.2. He has been on Ozempic and tolerating it well. However weight has plateaued and is interested in trying other medications to also help with weight management. Discussed options. Will submit for Mounjaro and follow-up pending PA determination. We did discuss risk benefits adverse effects of medication in detail. Demonstrated proper use of pen autoinjector here in office. F/u 6 weeks. #Hypertension. Well-controlled on current regimen. Medications refilled today. #Morbid obesity. He is actively working on weight reduction. Will try transitioning to Mounjaro as above with hope to help with decreasing weight and overall health risk factors. #Elevated PSA. Mildly elevated on recent labs at 6. Denies any urinary symptoms. Will fax copy of results to his urologist. He does report he has an upcoming visit with them in the next month or so. #Erectile dysfunction. Requesting refill of Cialis. #Insomnia. Using Ambien 3-4 times a week. Requesting refill. MassPAT reviewed. Refill sent. #Asthma. Has been well-controlled continue current regimen. Case discussed with collaborating physician Patricia Newberry who reviewed the assessment and plan. Chart, medications, labs, vital signs reviewed. Dictation was accomplished with the use of [employer] voice recognition software, prone to medical misidentifications and grammatical errors. This is unintentional and the practitioner does try to identify and correct these, but some could still be present. Please do not hesitate to contact practitioner for clarification. All questions answered to patients satisfaction. Patient verbalized understanding of diagnosis and treatments explained. To call sooner prior to next visit it any questions/concerns arise. 08/18/2024 Lipid screening (ICD-10 - Z13.220) Patient seen and examined. Comprehensive discussion was done on the following. 1. Nutrition: It is important to follow a healthy diet based on lots of vegetables and legumes and good fat. Avoid processed food and processed carbohydrates. Learn to prepare your own meals. Learn to read labels and avoid high fructose corn syrup, processed chemicals added to increase shelf life and preprepared meals. Avoid fast foods. Learn to eat slowly and plan meals for a week. Try to count calories and be mindful off daily calorie intake. Get into the habit of keeping an eye on your weight by using an appropriate scale. Learn to log exercise and discussed fitness Apps like [employer] which can help keep log off calories taken versus calories burned. Local food should be preferred. Discussed Dirty Dozen Versus Clean Fifteen. Discussed healthy supplements like fish oil, Tumeric, Curcumin, Melatonin, Resveratrol, Probiotics, Vitamin-D, Alpha-Lipoic acid, Vitamin-D and coconut oil. 2. It is important to exercise regularly. Is a good habit to walk at least 30-45 minutes a day. Gentle weightlifting with standard precautions to protect the back. Finding activity like cycling or hiking and get into the habit of engaging in it. Stretching before and after the exercises important. It is also important to contact me if there are any problems like shortness of breath, chest pain, back pain and joint or muscle pain associated with the exercise. 3. Discussed age appropriate screening guidelines. Colonoscopy needs to start at age 50 with stool for occult blood as appropriate. There is a new test that can test for genetic abnormalities in the stool sample. This would not replace a colonoscopy but could be used as a screening tool for patients who do not want a colonoscopy. We discussed the importance of early detection of colon cancer. 4. Discussed current PSA screening. PSA screening can be done in most patients between age 50 and 65. However early detection of prostate cancer needs to carefully be balanced with complications with treatment. These include incontinence, impotence etc. Each patient should decide if they would like to have this test. 5. Discussed safe driving and no use of smart phone while driving 6. Age-appropriate immunizations were discussed. A tetanus booster is needed every 10 years. Flu vaccine is recommended every year just before the start of the flu season. Shingles vaccine is recommended after age 50 but not all insurances cover it. Pneumonia vaccine is given after age 65 unless there are certain comorbidities for which it is started earlier. 7. Diagnostic labs were discussed. These could include CBC CMP and lipids with fasting blood glucose and insulin levels. Vitamin D and hemoglobin A1c testing might be appropriate. 03/21/2024 Hyperlipidemia, unspecified (ICD-10 - E78.5) 58-year-old male with PMH of hypertension, obesity, asthma, type 2 diabetes, aneurysm, renal stones presents for follow-up. Unable to complete lab work prior to todays visit. #BMI 43: Patient on Ozempic 2 mg weekly injections. He does still consume 1-2 beers daily with more on the weekends. He is encouraged to limit this intake, to avoid refined carbohydrates, increase intake of vegetables, proteins, and whole grains. He exercises on the treadmill 3 times per week. He is encouraged to continue this and to attempt to hit 8,000 steps 5 days per week. Patient had 10lbs weight loss since last visit on 10/2023. #Diabetes: Most recent A1c is 5.3 with glucose of 126. Denies polyuria, polydipsia, neuropathy, vision changes. Will continue Ozempic. #History of aortic aneurysm: Patient follows with cardiology. Has upcoming appoitnemnt and ultrasound in October 2024. Will continue Toprol 25 mg, furosemide 40 mg daily, and losartan 50 mg daily. #Asthma: Patient is followed by Pulmonolgy. Requesting albuterol refill. States symptoms are well controlled #Shingles immunization 2nd dose administered today Will reviewed lab work that patient completed at todays visit including CBC, CMP, lipid panel ordered. Follow-up in 5-6 months. Advised to call sooner if new symptoms arise. 01/04/2025 Morbid obesity (ICD-10 - E66.01) #Type 2 diabetes. A1c well-controlled in the office 5.4. Transitioned from Ozempic to Mounjaro last visit. Tolerating well. Not yet noticing appetite suppression. Will plan to titrate Mounjaro dose up to 7.5 mg dose prior to next visit. Continue to work on healthy diet, increase protein in diet and work on consistent exercise. Follow up 8 weeks, sooner with any concerns. #Hypertension. Well-controlled on current regimen. #Morbid obesity. He is actively working on weight reduction. Now on Mounjaro and titrating dose. Follow up in 8 weeks. Continue to work on lifestyle modifications. #Asthma. Has been well-controlled continue current regimen. Case discussed with collaborating physician Patricia Newberry who reviewed the assessment and plan. Chart, medications, labs, vital signs reviewed. Dictation was accomplished with the use of [employer] voice recognition software, prone to medical misidentifications and grammatical errors. This is unintentional and the practitioner does try to identify and correct these, but some could still be present. Please do not hesitate to contact practitioner for clarification. All questions answered to patients satisfaction. Patient verbalized understanding of diagnosis and treatments explained. To call sooner prior to next visit it any questions/concerns arise. 01/04/2025 Mild persistent asthma without complication (ICD-10 - J45.30) #Type 2 diabetes. A1c well-controlled in the office 5.4. Transitioned from Ozempic to Mounjaro last visit. Tolerating well. Not yet noticing appetite suppression. Will plan to titrate Mounjaro dose up to 7.5 mg dose prior to next visit. Continue to work on healthy diet, increase protein in diet and work on consistent exercise. Follow up 8 weeks, sooner with any concerns. #Hypertension. Well-controlled on current regimen. #Morbid obesity. He is actively working on weight reduction. Now on Mounjaro and titrating dose. Follow up in 8 weeks. Continue to work on lifestyle modifications. #Asthma. Has been well-controlled continue current regimen. Case discussed with collaborating physician Patricia Newberry who reviewed the assessment and plan. Chart, medications, labs, vital signs reviewed. Dictation was accomplished with the use of [employer] voice recognition software, prone to medical misidentifications and grammatical errors. This is unintentional and the practitioner does try to identify and correct these, but some could still be present. Please do not hesitate to contact practitioner for clarification. All questions answered to patients satisfaction. Patient verbalized understanding of diagnosis and treatments explained. To call sooner prior to next visit it any questions/concerns arise. 08/18/2024 Accelerated essential hypertension (ICD-10 - I10) Patient seen and examined. Comprehensive discussion was done on the following. 1. Nutrition: It is important to follow a healthy diet based on lots of vegetables and legumes and good fat. Avoid processed food and processed carbohydrates. Learn to prepare your own meals. Learn to read labels and avoid high fructose corn syrup, processed chemicals added to increase shelf life and preprepared meals. Avoid fast foods. Learn to eat slowly and plan meals for a week. Try to count calories and be mindful off daily calorie intake. Get into the habit of keeping an eye on your weight by using an appropriate scale. Learn to log exercise and discussed fitness Apps like [employer] which can help keep log off calories taken versus calories burned. Local food should be preferred. Discussed Dirty Dozen Versus Clean Fifteen. Discussed healthy supplements like fish oil, Tumeric, Curcumin, Melatonin, Resveratrol, Probiotics, Vitamin-D, Alpha-Lipoic acid, Vitamin-D and coconut oil. 2. It is important to exercise regularly. Is a good habit to walk at least 30-45 minutes a day. Gentle weightlifting with standard precautions to protect the back. Finding activity like cycling or hiking and get into the habit of engaging in it. Stretching before and after the exercises important. It is also important to contact me if there are any problems like shortness of breath, chest pain, back pain and joint or muscle pain associated with the exercise. 3. Discussed age appropriate screening guidelines. Colonoscopy needs to start at age 50 with stool for occult blood as appropriate. There is a new test that can test for genetic abnormalities in the stool sample. This would not replace a colonoscopy but could be used as a screening tool for patients who do not want a colonoscopy. We discussed the importance of early detection of colon cancer. 4. Discussed current PSA screening. PSA screening can be done in most patients between age 50 and 65. However early detection of prostate cancer needs to carefully be balanced with complications with treatment. These include incontinence, impotence etc. Each patient should decide if they would like to have this test. 5. Discussed safe driving and no use of smart phone while driving 6. Age-appropriate immunizations were discussed. A tetanus booster is needed every 10 years. Flu vaccine is recommended every year just before the start of the flu season. Shingles vaccine is recommended after age 50 but not all insurances cover it. Pneumonia vaccine is given after age 65 unless there are certain comorbidities for which it is started earlier. 7. Diagnostic labs were discussed. These could include CBC CMP and lipids with fasting blood glucose and insulin levels. Vitamin D and hemoglobin A1c testing might be appropriate. 03/21/2024 Essential (primary) hypertension (ICD-10 - I10) 58-year-old male with PMH of hypertension, obesity, asthma, type 2 diabetes, aneurysm, renal stones presents for follow-up. Unable to complete lab work prior to todays visit. #BMI 43: Patient on Ozempic 2 mg weekly injections. He does still consume 1-2 beers daily with more on the weekends. He is encouraged to limit this intake, to avoid refined carbohydrates, increase intake of vegetables, proteins, and whole grains. He exercises on the treadmill 3 times per week. He is encouraged to continue this and to attempt to hit 8,000 steps 5 days per week. Patient had 10lbs weight loss since last visit on 10/2023. #Diabetes: Most recent A1c is 5.3 with glucose of 126. Denies polyuria, polydipsia, neuropathy, vision changes. Will continue Ozempic. #History of aortic aneurysm: Patient follows with cardiology. Has upcoming appoitnemnt and ultrasound in October 2024. Will continue Toprol 25 mg, furosemide 40 mg daily, and losartan 50 mg daily. #Asthma: Patient is followed by Pulmonolgy. Requesting albuterol refill. States symptoms are well controlled #Shingles immunization 2nd dose administered today Will reviewed lab work that patient completed at todays visit including CBC, CMP, lipid panel ordered. Follow-up in 5-6 months. Advised to call sooner if new symptoms arise. 11/24/2024 Elevated PSA (ICD-10 - R97.20) #Type 2 diabetes. A1c well-controlled in the office 5.2. He has been on Ozempic and tolerating it well. However weight has plateaued and is interested in trying other medications to also help with weight management. Discussed options. Will submit for Mounjaro and follow-up pending PA determination. We did discuss risk benefits adverse effects of medication in detail. Demonstrated proper use of pen autoinjector here in office. F/u 6 weeks. #Hypertension. Well-controlled on current regimen. Medications refilled today. #Morbid obesity. He is actively working on weight reduction. Will try transitioning to Mounjaro as above with hope to help with decreasing weight and overall health risk factors. #Elevated PSA. Mildly elevated on recent labs at 6. Denies any urinary symptoms. Will fax copy of results to his urologist. He does report he has an upcoming visit with them in the next month or so. #Erectile dysfunction. Requesting refill of Cialis. #Insomnia. Using Ambien 3-4 times a week. Requesting refill. [facility]PAT reviewed. Refill sent. #Asthma. Has been well-controlled continue current regimen. Case discussed with collaborating physician Patricia Newberry who reviewed the assessment and plan. Chart, medications, labs, vital signs reviewed. Dictation was accomplished with the use of [employer] voice recognition software, prone to medical misidentifications and grammatical errors. This is unintentional and the practitioner does try to identify and correct these, but some could still be present. Please do not hesitate to contact practitioner for clarification. All questions answered to patients satisfaction. Patient verbalized understanding of diagnosis and treatments explained. To call sooner prior to next visit it any questions/concerns arise. 07/04/2024 Morbid obesity (ICD-10 - E66.01) Pearl is a pleasant 58 year old male with a past medical history of Morbid (severe) obesity due to excess calories, Essential (primary) hypertension, History of kidney stones, Asthma, Obstructive sleep apnea, History of hyperparathyroidism, unspecified erectile dysfunction type, Scoliosis of thoracic spine, History of R diaphragm paralysis, and Prediabetes, presenting to the clinic for a follow up visit. # Obesity: Currently taking Ozempic 2 mg. Endorses little to no improvement with weight. Last weight was 267 lbs and current weight is 264 lbs. Discussed idea of incorporating more exercise into daily routine. Discussed trialing Zepbound/Tirzepatide due to failure of Ozempic in helping the concern. Patient agrees to trialing Zepbound/Tirzepatide . # Essential Hypertension: Stable. Blood pressure reading today was 146/89 and 130/80. Currently taking Metoprolol XL 25 MG Tablet, Furosemide 40 MG Tablet (occasionally takes), and Losartan Potassium 50 MG Tablet. Will continue Metoprolol XL 25 MG Tablet, Furosemide 40 MG Tablet (occasionally takes), and Losartan Potassium 50 MG Tablet. Discussed the importance of weight loss as this may also help reduce blood pressure. # Asthma: Stable. Currently taking Wixela Inhub 100-50 MCG/ACT. Currently sees a model and pattern supervisor. Will follow with model and pattern supervisor. # Obstructive Sleep Apnea: Stable. States wearing a ventilator, not a CPAP to sleep. Discussed importance of weight loss in assisting with the management of obstructive sleep apnea. WIll continue to monitor. # History of Kidney Stones: Stable. Had ultrasound 1 month ago, ordered by urologist, which shows no stones. # Influenza vaccine: Discussed importance of influenza vaccine due to patient's risk factors such as age, asthma, and phrenic nerve injury. Patient agreed to vaccination. Administered influenza vacccine to left deltoid on 07/04/2024. Will follow up on 08/18/2024 for complete physical exam. Informed patient if any new or worsening concerns arise, they are welcome to contact the office and be reevaluated. 07/04/2024 Body mass index (BMI) 40.0-44.9, adult (ICD-10 - Z68.41) Pearl is a pleasant 58 year old male with a past medical history of Morbid (severe) obesity due to excess calories, Essential (primary) hypertension, History of kidney stones, Asthma, Obstructive sleep apnea, History of hyperparathyroidism, unspecified erectile dysfunction type, Scoliosis of thoracic spine, History of R diaphragm paralysis, and Prediabetes, presenting to the clinic for a follow up visit. # Obesity: Currently taking Ozempic 2 mg. Endorses little to no improvement with weight. Last weight was 267 lbs and current weight is 264 lbs. Discussed idea of incorporating more exercise into daily routine. Discussed trialing Zepbound/Tirzepatide due to failure of Ozempic in helping the concern. Patient agrees to trialing Zepbound/Tirzepatide . # Essential Hypertension: Stable. Blood pressure reading today was 146/89 and 130/80. Currently taking Metoprolol XL 25 MG Tablet, Furosemide 40 MG Tablet (occasionally takes), and Losartan Potassium 50 MG Tablet. Will continue Metoprolol XL 25 MG Tablet, Furosemide 40 MG Tablet (occasionally takes), and Losartan Potassium 50 MG Tablet. Discussed the importance of weight loss as this may also help reduce blood pressure. # Asthma: Stable. Currently taking Wixela Inhub 100-50 MCG/ACT. Currently sees a model and pattern supervisor. Will follow with model and pattern supervisor. # Obstructive Sleep Apnea: Stable. States wearing a ventilator, not a CPAP to sleep. Discussed importance of weight loss in assisting with the management of obstructive sleep apnea. WIll continue to monitor. # History of Kidney Stones: Stable. Had ultrasound 1 month ago, ordered by urologist, which shows no stones. # Influenza vaccine: Discussed importance of influenza vaccine due to patient's risk factors such as age, asthma, and phrenic nerve injury. Patient agreed to vaccination. Administered influenza vacccine to left deltoid on 07/04/2024. Will follow up on 08/18/2024 for complete physical exam. Informed patient if any new or worsening concerns arise, they are welcome to contact the office and be reevaluated. 11/24/2024 Erectile dysfunction, unspecified erectile dysfunction type (ICD-10 - N52.9) #Type 2 diabetes. A1c well-controlled in the office 5.2. He has been on Ozempic and tolerating it well. However weight has plateaued and is interested in trying other medications to also help with weight management. Discussed options. Will submit for Mounjaro and follow-up pending PA determination. We did discuss risk benefits adverse effects of medication in detail. Demonstrated proper use of pen autoinjector here in office. F/u 6 weeks. #Hypertension. Well-controlled on current regimen. Medications refilled today. #Morbid obesity. He is actively working on weight reduction. Will try transitioning to Mounjaro as above with hope to help with decreasing weight and overall health risk factors. #Elevated PSA. Mildly elevated on recent labs at 6. Denies any urinary symptoms. Will fax copy of results to his urologist. He does report he has an upcoming visit with them in the next month or so. #Erectile dysfunction. Requesting refill of Cialis. #Insomnia. Using Ambien 3-4 times a week. Requesting refill. [facility]PAT reviewed. Refill sent. #Asthma. Has been well-controlled continue current regimen. Case discussed with collaborating physician Patricia Newberry who reviewed the assessment and plan. Chart, medications, labs, vital signs reviewed. Dictation was accomplished with the use of [employer] voice recognition software, prone to medical misidentifications and grammatical errors. This is unintentional and the practitioner does try to identify and correct these, but some could still be present. Please do not hesitate to contact practitioner for clarification. All questions answered to patients satisfaction. Patient verbalized understanding of diagnosis and treatments explained. To call sooner prior to next visit it any questions/concerns arise. 08/18/2024 Encounter for prostate cancer screening (ICD-10 - Z12.5) Patient seen and examined. Comprehensive discussion was done on the following. 1. Nutrition: It is important to follow a healthy diet based on lots of vegetables and legumes and good fat. Avoid processed food and processed carbohydrates. Learn to prepare your own meals. Learn to read labels and avoid high fructose corn syrup, processed chemicals added to increase shelf life and preprepared meals. Avoid fast foods. Learn to eat slowly and plan meals for a week. Try to count calories and be mindful off daily calorie intake. Get into the habit of keeping an eye on your weight by using an appropriate scale. Learn to log exercise and discussed fitness Apps like [employer] which can help keep log off calories taken versus calories burned. Local food should be preferred. Discussed [employer] Fifteen. Discussed healthy supplements like fish oil, Tumeric, Curcumin, Melatonin, Resveratrol, Probiotics, Vitamin-D, Alpha-Lipoic acid, Vitamin-D and coconut oil. 2. It is important to exercise regularly. Is a good habit to walk at least 30-45 minutes a day. Gentle weightlifting with standard precautions to protect the back. Finding activity like cycling or hiking and get into the habit of engaging in it. Stretching before and after the exercises important. It is also important to contact me if there are any problems like shortness of breath, chest pain, back pain and joint or muscle pain associated with the exercise. 3. Discussed age appropriate screening guidelines. Colonoscopy needs to start at age 50 with stool for occult blood as appropriate. There is a new test that can test for genetic abnormalities in the stool sample. This would not replace a colonoscopy but could be used as a screening tool for patients who do not want a colonoscopy. We discussed the importance of early detection of colon cancer. 4. Discussed current PSA screening. PSA screening can be done in most patients between age 50 and 65. However early detection of prostate cancer needs to carefully be balanced with complications with treatment. These include incontinence, impotence etc. Each patient should decide if they would like to have this test. 5. Discussed safe driving and no use of smart phone while driving 6. Age-appropriate immunizations were discussed. A tetanus booster is needed every 10 years. Flu vaccine is recommended every year just before the start of the flu season. Shingles vaccine is recommended after age 50 but not all insurances cover it. Pneumonia vaccine is given after age 65 unless there are certain comorbidities for which it is started earlier. 7. Diagnostic labs were discussed. These could include CBC CMP and lipids with fasting blood glucose and insulin levels. Vitamin D and hemoglobin A1c testing might be appropriate. 03/21/2024 Adult general medical exam (ICD-10 - Z00.00) 58-year-old male with PMH of hypertension, obesity, asthma, type 2 diabetes, aneurysm, renal stones presents for follow-up. Unable to complete lab work prior to todays visit. #BMI 43: Patient on Ozempic 2 mg weekly injections. He does still consume 1-2 beers daily with more on the weekends. He is encouraged to limit this intake, to avoid refined carbohydrates, increase intake of vegetables, proteins, and whole grains. He exercises on the treadmill 3 times per week. He is encouraged to continue this and to attempt to hit 8,000 steps 5 days per week. Patient had 10lbs weight loss since last visit on 10/2023. #Diabetes: Most recent A1c is 5.3 with glucose of 126. Denies polyuria, polydipsia, neuropathy, vision changes. Will continue Ozempic. #History of aortic aneurysm: Patient follows with cardiology. Has upcoming appoitnemnt and ultrasound in October 2024. Will continue Toprol 25 mg, furosemide 40 mg daily, and losartan 50 mg daily. #Asthma: Patient is followed by Pulmonolgy. Requesting albuterol refill. States symptoms are well controlled #Shingles immunization 2nd dose administered today Will reviewed lab work that patient completed at todays visit including CBC, CMP, lipid panel ordered. Follow-up in 5-6 months. Advised to call sooner if new symptoms arise. 08/18/2024 Morbid obesity (ICD-10 - E66.01) Patient seen and examined. Comprehensive discussion was done on the following. 1. Nutrition: It is important to follow a healthy diet based on lots of vegetables and legumes and good fat. Avoid processed food and processed carbohydrates. Learn to prepare your own meals. Learn to read labels and avoid high fructose corn syrup, processed chemicals added to increase shelf life and preprepared meals. Avoid fast foods. Learn to eat slowly and plan meals for a week. Try to count calories and be mindful off daily calorie intake. Get into the habit of keeping an eye on your weight by using an appropriate scale. Learn to log exercise and discussed fitness Apps like [employer] which can help keep log off calories taken versus calories burned. Local food should be preferred. Discussed [employer]. Discussed healthy supplements like fish oil, Tumeric, Curcumin, Melatonin, Resveratrol, Probiotics, Vitamin-D, Alpha-Lipoic acid, Vitamin-D and coconut oil. 2. It is important to exercise regularly. Is a good habit to walk at least 30-45 minutes a day. Gentle weightlifting with standard precautions to protect the back. Finding activity like cycling or hiking and get into the habit of engaging in it. Stretching before and after the exercises important. It is also important to contact me if there are any problems like shortness of breath, chest pain, back pain and joint or muscle pain associated with the exercise. 3. Discussed age appropriate screening guidelines. Colonoscopy needs to start at age 50 with stool for occult blood as appropriate. There is a new test that can test for genetic abnormalities in the stool sample. This would not replace a colonoscopy but could be used as a screening tool for patients who do not want a colonoscopy. We discussed the importance of early detection of colon cancer. 4. Discussed current PSA screening. PSA screening can be done in most patients between age 50 and 65. However early detection of prostate cancer needs to carefully be balanced with complications with treatment. These include incontinence, impotence etc. Each patient should decide if they would like to have this test. 5. Discussed safe driving and no use of smart phone while driving 6. Age-appropriate immunizations were discussed. A tetanus booster is needed every 10 years. Flu vaccine is recommended every year just before the start of the flu season. Shingles vaccine is recommended after age 50 but not all insurances cover it. Pneumonia vaccine is given after age 65 unless there are certain comorbidities for which it is started earlier. 7. Diagnostic labs were discussed. These could include CBC CMP and lipids with fasting blood glucose and insulin levels. Vitamin D and hemoglobin A1c testing might be appropriate. 07/04/2024 Encounter for immunization (ICD-10 - Z23) Pearl is a pleasant 58 year old male with a past medical history of Morbid (severe) obesity due to excess calories, Essential (primary) hypertension, History of kidney stones, Asthma, Obstructive sleep apnea, History of hyperparathyroidism, unspecified erectile dysfunction type, Scoliosis of thoracic spine, History of R diaphragm paralysis, and Prediabetes, presenting to the clinic for a follow up visit. # Obesity: Currently taking Ozempic 2 mg. Endorses little to no improvement with weight. Last weight was 267 lbs and current weight is 264 lbs. Discussed idea of incorporating more exercise into daily routine. Discussed trialing Zepbound/Tirzepatide due to failure of Ozempic in helping the concern. Patient agrees to trialing Zepbound/Tirzepatide . # Essential Hypertension: Stable. Blood pressure reading today was 146/89 and 130/80. Currently taking Metoprolol XL 25 MG Tablet, Furosemide 40 MG Tablet (occasionally takes), and Losartan Potassium 50 MG Tablet. Will continue Metoprolol XL 25 MG Tablet, Furosemide 40 MG Tablet (occasionally takes), and Losartan Potassium 50 MG Tablet. Discussed the importance of weight loss as this may also help reduce blood pressure. # Asthma: Stable. Currently taking Wixela Inhub 100-50 MCG/ACT. Currently sees a model and pattern supervisor. Will follow with model and pattern supervisor. # Obstructive Sleep Apnea: Stable. States wearing a ventilator, not a CPAP to sleep. Discussed importance of weight loss in assisting with the management of obstructive sleep apnea. WIll continue to monitor. # History of Kidney Stones: Stable. Had ultrasound 1 month ago, ordered by urologist, which shows no stones. # Influenza vaccine: Discussed importance of influenza vaccine due to patient's risk factors such as age, asthma, and phrenic nerve injury. Patient agreed to vaccination. Administered influenza vacccine to left deltoid on 07/04/2024. Will follow up on 08/18/2024 for complete physical exam. Informed patient if any new or worsening concerns arise, they are welcome to contact the office and be reevaluated. 11/24/2024 Other insomnia (ICD-10 - G47.09) #Type 2 diabetes. A1c well-controlled in the office 5.2. He has been on Ozempic and tolerating it well. However weight has plateaued and is interested in trying other medications to also help with weight management. Discussed options. Will submit for Mounjaro and follow-up pending PA determination. We did discuss risk benefits adverse effects of medication in detail. Demonstrated proper use of pen autoinjector here in office. F/u 6 weeks. #Hypertension. Well-controlled on current regimen. Medications refilled today. #Morbid obesity. He is actively working on weight reduction. Will try transitioning to Mounjaro as above with hope to help with decreasing weight and overall health risk factors. #Elevated PSA. Mildly elevated on recent labs at 6. Denies any urinary symptoms. Will fax copy of results to his urologist. He does report he has an upcoming visit with them in the next month or so. #Erectile dysfunction. Requesting refill of Cialis. #Insomnia. Using Ambien 3-4 times a week. Requesting refill. [facility]PAT reviewed. Refill sent. #Asthma. Has been well-controlled continue current regimen. Case discussed with collaborating physician Patricia Newberry who reviewed the assessment and plan. Chart, medications, labs, vital signs reviewed. Dictation was accomplished with the use of [employer] voice recognition software, prone to medical misidentifications and grammatical errors. This is unintentional and the practitioner does try to identify and correct these, but some could still be present. Please do not hesitate to contact practitioner for clarification. All questions answered to patients satisfaction. Patient verbalized understanding of diagnosis and treatments explained. To call sooner prior to next visit it any questions/concerns arise. 11/24/2024 Mild persistent asthma without complication (ICD-10 - J45.30) #Type 2 diabetes. A1c well-controlled in the office 5.2. He has been on Ozempic and tolerating it well. However weight has plateaued and is interested in trying other medications to also help with weight management. Discussed options. Will submit for Mounjaro and follow-up pending PA determination. We did discuss risk benefits adverse effects of medication in detail. Demonstrated proper use of pen autoinjector here in office. F/u 6 weeks. #Hypertension. Well-controlled on current regimen. Medications refilled today. #Morbid obesity. He is actively working on weight reduction. Will try transitioning to Mounjaro as above with hope to help with decreasing weight and overall health risk factors. #Elevated PSA. Mildly elevated on recent labs at 6. Denies any urinary symptoms. Will fax copy of results to his urologist. He does report he has an upcoming visit with them in the next month or so. #Erectile dysfunction. Requesting refill of Cialis. #Insomnia. Using Ambien 3-4 times a week. Requesting refill. [facility]PAT reviewed. Refill sent. #Asthma. Has been well-controlled continue current regimen. Case discussed with collaborating physician Patricia Newberry who reviewed the assessment and plan. Chart, medications, labs, vital signs reviewed. Dictation was accomplished with the use of [employer] voice recognition software, prone to medical misidentifications and grammatical errors. This is unintentional and the practitioner does try to identify and correct these, but some could still be present. Please do not hesitate to contact practitioner for clarification. All questions answered to patients satisfaction. Patient verbalized understanding of diagnosis and treatments explained. To call sooner prior to next visit it any questions/concerns arise. 03/21/2024 Encounter for immunization (ICD-10 - Z23) 58-year-old male with PMH of hypertension, obesity, asthma, type 2 diabetes, aneurysm, renal stones presents for follow-up. Unable to complete lab work prior to todays visit. #BMI 43: Patient on Ozempic 2 mg weekly injections. He does still consume 1-2 beers daily with more on the weekends. He is encouraged to limit this intake, to avoid refined carbohydrates, increase intake of vegetables, proteins, and whole grains. He exercises on the treadmill 3 times per week. He is encouraged to continue this and to attempt to hit 8,000 steps 5 days per week. Patient had 10lbs weight loss since last visit on 10/2023. #Diabetes: Most recent A1c is 5.3 with glucose of 126. Denies polyuria, polydipsia, neuropathy, vision changes. Will continue Ozempic. #History of aortic aneurysm: Patient follows with cardiology. Has upcoming appoitnemnt and ultrasound in October 2024. Will continue Toprol 25 mg, furosemide 40 mg daily, and losartan 50 mg daily. #Asthma: Patient is followed by Pulmonolgy. Requesting albuterol refill. States symptoms are well controlled #Shingles immunization 2nd dose administered today Will reviewed lab work that patient completed at todays visit including CBC, CMP, lipid panel ordered. Follow-up in 5-6 months. Advised to call sooner if new symptoms arise. Plan Of Treatment Pending Test Test Name Order Date Echocardiogram 05/09/2019 Hepatitis C antibody 09/11/2020 Ultrasound : Kidneys and Bladder 020 EKG 08/31/2018 EKG 08/31/2018 EKG 11/25/2021 APTT 09/11/2020 CBC (COMPLETE BLOOD COUNT) 08/31/2018 CBC (COMPLETE BLOOD COUNT) 06/29/2018 CBC (COMPLETE BLOOD COUNT) 12/17/2020 CBC (COMPLETE BLOOD COUNT) 09/11/2020 CBC (COMPLETE BLOOD COUNT) 07/01/2022 COMPREHENSIVE METABOLIC PANEL 09/11/2020 COMPREHENSIVE METABOLIC PANEL 06/29/2018 COMPREHENSIVE METABOLIC PANEL 08/31/2018 COMPREHENSIVE METABOLIC PANEL 12/17/2020 CRP, HIGH SENSITIVITY 08/31/2018 HEMOGLOBIN A1C 08/31/2018 HEMOGLOBIN A1C 12/17/2020 HEMOGLOBIN A1C 06/29/2018 INSULIN 08/31/2018 LIPID PANEL 08/31/2018 LIPID PANEL 06/29/2018 LIPID PANEL 12/17/2020 PSA, SCREEN 08/31/2018 PSA, SCREEN 06/29/2018 TESTOSTERONE, FREE AND TOTAL (MALES >15 YRS OLD) 08/31/2018 TSH WITH REFLEX TO FT4 06/29/2018 URINALYSIS, COMPLETE 08/31/2018 URINALYSIS, COMPLETE 06/29/2018 URINALYSIS, COMPLETE 12/17/2020 HIV 1 & 2 Ab 09/11/2020 MRI L-Spine w/o Contrast 10/21/2022 UC XR C-Spine 2-3 Views 05/02/2019 XR Knee 3 Views LT 01/09/2022 PT/INR 09/11/2020 UA WITH CULTURE IF INDICATED 08/18/2024 LIPID PANEL, STANDARD 08/18/2024 LIPID PANEL, STANDARD 03/21/2024 LIPID PANEL, STANDARD 10/19/2023 LIPID PANEL, STANDARD 09/01/2022 LIPID PANEL, STANDARD 01/26/2023 LIPID PANEL, STANDARD 03/31/2022 LIPID PANEL, STANDARD 06/06/2021 COMPREHENSIVE METABOLIC PANEL 03/31/2022 COMPREHENSIVE METABOLIC PANEL 09/01/2022 COMPREHENSIVE METABOLIC PANEL 01/26/2023 COMPREHENSIVE METABOLIC PANEL 10/19/2023 COMPREHENSIVE METABOLIC PANEL 08/18/2024 COMPREHENSIVE METABOLIC PANEL 03/21/2024 CBC (INCLUDES DIFF/PLT) 03/21/2024 CBC (INCLUDES DIFF/PLT) 08/18/2024 CBC (INCLUDES DIFF/PLT) 10/19/2023 CBC (INCLUDES DIFF/PLT) 01/26/2023 CBC (INCLUDES DIFF/PLT) 09/01/2022 CBC (INCLUDES DIFF/PLT) 03/31/2022 URINALYSIS, COMPLETE 03/31/2022 URINALYSIS, COMPLETE 09/01/2022 URINALYSIS, COMPLETE 01/26/2023 URINALYSIS, COMPLETE 10/19/2023 URINALYSIS, COMPLETE W/REFLEX TO CULTURE 07/01/2022 HEMOGLOBIN A1c 01/26/2023 HEMOGLOBIN A1c 06/06/2021 PSA (FREE AND TOTAL) 08/18/2024 PSA, TOTAL 03/31/2022 HEPATITIS B ANTIBODY, QUANT 09/11/2020 HEPATITIS A ANTIBODY TOTAL 09/11/2020 US Duplex Venous Study Bilat 09/11/2020 PPC Hemoglobin A1C 01/04/2025 Future Test Test Name Order Date COMPLETE URINALYSIS 09/22/2020 Next Appt Details Provider Name:Carlota Medeiroskelli, 0 03/07/2025 03:00:00 PM, [address], [place], [address], Insurance Providers Payer Name Payer Address Payer Phone Subscriber Number Group Number Insured Name Patient Relationship to Insured Coverage Start Date Coverage End Date [facility] [address] [place] [address] [phone] [id number] PEARL AGUILAR Self - patient is the insured 1 Medical (General) History Medical History History ICD Code Morbid (severe) obesity due to excess ca lories E66.01 Essential (primary) hypertension I10 JOSIE (obstructive sleep apnea) G47.33 History of kidney stones Z87.442 Asthma J45.909 Obstructive sleep apnea G47.33 History of hyperparathyroidism Erectile dysfunction, unspecified erecti le dysfunction type N52.9 Scoliosis of thoracic spine, unspecified scoliosis type M41.9 History of R diaphragm paralysis Prediabetes R73.03 Surgical History Surgery Date(Month/Year) ACHILLES TENDON REPAIR 1970 KIDNEY STONES 2012 phrenic nerve reconstruction 11/16/20 C-spine surgery Partial thyroidectomy Hospitalization History Reason Date(Month/Year) phrenic nerve reconstruction 11/16/20
== END 2025-01-20 15:14 | disposition home or self-care (01) ==
LOC: HO.HMGCX 15:13
PROVIDERS: PCP Internal Medicine; Visit Provider Nurse Practitioner Family
DX: R97.20 Elevated prostate specific antigen [PSA] (principal)
CPT/HCPCS: 76770

== ENCOUNTER → 2025-01-20 15:39 | Outpatient (BNV) | payer BC, SELFPAY | PROVIDERS: PCP Internal Medicine; Visit Provider Specialist | DX: N28.1 Cyst of kidney, acquired (principal) | CPT/HCPCS: 76770 ==

== ENCOUNTER 2025-02-14 14:54 | Outpatient (AMB) | payer BC, SELFPAY ==
--- OUTSIDE RECORDS SUMMARY | 2025-02-09 23:59 | XMS_ITS | Continuity of Care Document ---
Author Organization [facility] Address [address] [place] [address] [place] [address]- Care Team Providers Care Cabbage Salter Name Role Phone Coni ARREGUIN, Kandi Vallecillo Primary Care Physician [phone] Encounter [facility] [place] Date(s): 01/10/25 - 02/09/25 [facility] [address] [place] [address] Drive [address] [place], [place] [address] Encounter Type: Triage Allergies, Adverse Reactions, Alerts Substance Criticality Severity Reaction Reaction Severity Status Zosyn 1 Unable to assess criticality Persistent Moderate Resolved Bee Stings facial selling Acti ve 1dry heaving, nausea Immunizations Given and Recorded Vaccine Date Status Refusal Reason Tetanus Toxoid 12/11/00 Given Medications Albuterol 1-2 puffs, Inhalation, PRN Dyspnea, 0 Refills, Maintenance, 11/11/10 4:03:08 PM EDT Start Date: 11/11/10 Status: Ordered Repeat number: 1 Flomax 0.4 mg oral capsule 1 capsule = 0.4 mg, By Mouth, Daily, # 10 capsule, 0 Refills, Maintenance, 12/21/11 7:00:43 AM EDT, Capsule Start Date: 12/21/11 Stop Date: 12/31/11 Status: Ordered Quantity: 10.0 Unit: capsule Repeat number: 1 furosemide 40 mg oral tablet 40 mg, 1, tablet, By Mouth, Daily, Refills 0, Maintenance, 07/04/19 8:38:00 AM EST Start Date: 07/04/19 Status: Ordered Repeat number: 1 losartan 50 mg oral tablet 50 mg, 1, tablet, By Mouth, Daily, Refills 0, Maintenance, 08/21/21 3:33:00 PM EST, Partial fill upon patient request if the prescription is for a schedule II opioid drug. Start Date: 08/21/21 Status: Ordered Repeat number: 1 metoprolol 25 mg oral tablet 25 mg, 1, tablet, By Mouth, 2 times a day, Refills 0, Maintenance, 11/20/22 10:20:00 AM EDT, Partialfill upon patient request if the prescription is for a schedule II opioid drug. Start Date: 11/20/22 Status: Ordered Repeat number: 1 Ozempic 2 mg/3 mL (0.25 mg or 0.5 mg dose) subcutaneous solution 3 mL, 0 Refill(s), INJECT 0.25MG SUBCUTANEOUSLY ONCE A WEEK, 0 Refills, 12/24/23 3:59:00 PM EDT, Partial fill upon patient request if the prescription is for a schedule II opioid drug. Start Date: 12/24/23 Status: Ordered Repeat number: 1 zolpidem 5 mg oral tablet See Instructions, PRN as needed for insomnia, 1 tablet By Mouth Daily at bedtime, 0 Refills, Maintenance, 02/19/22 3:25:00 PM EDT, Partial fill upon patient request if the prescription is for a schedule II opioid drug. 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 Confirmed 05/04/19 Active Obesity Confirmed Active JOSIE (obstructive sleep apnea) Confirmed Active Diaphragm paralysis, 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 Confirmed 08/05/19 Active Severe obesity Confirmed Active Spina bifida, cervical region (C5-6 and C7) Confirmed 05/04/19 Active Social History Social History Type Response Smoking Status Former smoker, quit more than 30 days ago entered on: 08/12/24 Sex Sex Representation Male (finding) Patient Care team information Care Team Personnel Name: Kandi Newberry MD Position: [facility] Physician - Primary Care Member Role: PCP Address: [address] [place] [address], [address] Primary Care and Weight Management [place], [place] [address] Telecom: Care Team Related Persons Name: WESTONJINNY FAIRBANKS Name: ADALI AGUILAR Name: ASIF MORROW Insurance Providers Guarantor name: PEARL AGUILAR Health Plan Information #: 1 Payer: [employer] [facility] Payer Identifier: NA Member Number: [id number] Group Number: [id number] Subscriber Identifier: [id number] Relationship to Subscriber: self Coverage Type: NA Coverage Verification Date: NA Telecom: NA Address:
--- NOTE | 2025-02-14 15:42 | A.OFFVIS_ITS ---
Intake Visit Reasons: follow up/ US/PSA(set) Intake Note: Patient presents today for a follow up/US/PSA * 02/01 PSA: 6.7 Urology Medications: none Blood Thinner: none Ncqa Specialist Required: No Accompanied by: Self / Same As Patient Allergies No Known Allergies Allergy (Verified 02/14/25 20:27) Medication List - Last Reconciled 02/14/25 by Sarah Lovett, PLANT MECHANIC- albuterol sulfate 90 mcg/actuation 1 puff inhalation Q6H PRN fluticasone propion-salmeterol 100-50 mcg/dose (Wixela Inhub) 1 ea inhalation BID furosemide 40 mg PO DAILY losartan 50 mg PO DAILY metoprolol succinate ER 25 mg PO DAILY tirzepatide (Mounjaro) 7.5 mg subcut QWEEK HPI Comments Details: Bjorn is a very pleasant 59-year-old male patient of Dr. Newberry. He has a past medical history of prediabetes, paralysis of the right diaphragm, scoliosis, ED, hyperparathyroidism, asthma, nephrolithiasis, obstructive sleep apnea, hypertension, and obesity. He presents to the office today for follow-up of his nephrolithiasis, renal cysts as well as elevated PSA. In discussion with the patient today reports to be doing and feeling well. Since last office visit patients PCP faxed over most recent PSA results at which time PSA was noted to be elevated. He has since completed redraw of PSA and retroperitoneal ultrasound as ordered. These results were reviewed and communicated with the patient today. PSAs are as follows: PSA: 12/02 6.1, 02/01 6.7 with % free PSA 14.5%. Retroperitoneal ultrasound 02/01 noted no nephrolithiasis or hydronephrosis noted bilaterally. There are 3 right simple anechoic cysts. The bladder is unremarkable. Prostate measures approximately 40 mL. When asked he denies any bothersome urinary issues or concerns. We did discussed at length potential causes of elevated PSA as well as further treatment options and risks and benefits of these treatment options. PCPT risk calculator results were reviewed 65% chance prostate biopsy negative for prostate cancer, 26% chance low-grade prostate cancer, and 9% chance of high-grade prostate cancer. He denies urinary urgency, urinary frequency, incontinence, nocturia, hematuria, dysuria, foul smelling urine, changes to urinary stream, fever, and or chills. He is happy with his current voiding parameters. He denies any known family history of prostate cancer. He reports he had been following up with his PCP annually for PSAs and believes they were within normal limits prior to most recent elevated PSA in November. I do not have other PSA results to review and or trend. He reports having had SADIE with PCP and was noted to be within normal limits. He otherwise offers no other issues or concerns at this time. [facility] Medical History Pre-diabetes Paralysis Scoliosis Erectile dysfunction History of hyperparathyroidism Asthma History of kidney stones Obstructive sleep apnea Essential (primary) hypertension Morbid (severe) obesity due to excess calories Review of Systems Const Reports as per HPI Eyes Reports no additional complaints ENT Reports no additional complaints Card Reports as per HPI Resp Reports as per HPI GI Reports no additional complaints Reports as per HPI Musc Reports no additional complaints Neuro Reports no additional complaints Psych Reports no additional complaints Endo Reports as per HPI Physical Exam Const General: cooperative, healthy appearing, comfortable, no acute distress, well developed, alert and awake Nutritional Appearance: overweight Orientation/consciousness: patient oriented x3 Limitations: no limitations HEENT Head: Yes normal to inspection, Yes normocephalic and Yes atraumatic Ears: hearing grossly normal bilaterally Eyes General: appearance normal, both eyes and all related structures Neck Neck: Yes normal visual inspection and Yes trachea midline Chest Chest palpation & inspection: normal inspection of the chest Resp Effort & Inspection: normal respiratory effort and able to speak in complete sentences Cardio Rate: regular rate GI Inspection: Yes normal to inspection General: Yes no CVA tenderness Back/Spine/Pelvis Back: no CVA tenderness Skin General skin exam: no rashes or lesions noted Neuro General: patient oriented x3 Extrem General: Yes normal to inspection Psych Appearance: grossly normal and well kempt Mental Status: mental status grossly normal Speech and movement: Normal speech and movement present and Clear speech present Affect: normal affect Attitude: cooperative Thought process: Normal thought process present Thought content: Normal thought content present Insight: Fair insight present (Psych) Judgement: Fair judgement present (Psych) Results AMB Urinalysis, Automated UA Leukoctes 15 Elie/uL Last Edit by Keyona Alvarado on 02/14/25 16:21 UA Nitrite Negative Last Edit by Keyona Alvarado on 02/14/25 16:21 UA Urobilinogen 3.5 mg/dL Last Edit by Keyona Alvarado on 02/14/25 16:21 UA Protein 1 mg/dL Last Edit by Keyona Alvarado on 02/14/25 16:21 UA pH 6.5 Last Edit by Keyona Alvarado on 02/14/25 16:21 UA Blood 0 Yosef/uL Last Edit by Keyona Alvarado on 02/14/25 16:21 UA Specific [place] 1.015 Last Edit by Keyona Alvarado on 02/14/25 16:21 UA Ketone Negative Last Edit by Keyona Alvarado on 02/14/25 16:21 UA Bilirubin 0 mg/dL Last Edit by Keyona Alvarado on 02/14/25 16:21 UA Glucose 0 mg/dL Last Edit by Keyona Alvarado on 02/14/25 16:21 Results Reviewed Results Reviewed: Laboratory Last Values Urine pH (Auto) 6.5 02/14/25 16:03 Specific [place] (Auto) 1.015 02/14/25 16:03 Urine Protein (Auto) 1 mg/dL 02/14/25 16:03 Glucose (UA)(Auto) 0 mg/dL 02/14/25 16:03 Urine Ketones (Auto) Negative 02/14/25 16:03 Urine Blood (Auto) 0 Yosef/uL 02/14/25 16:03 Urine Nitrite (Auto) Negative 02/14/25 16:03 Urine Bilirubin (Auto) 0 mg/dL 02/14/25 16:03 Urine Urobilinogen (Auto) 3.5 mg/dL 02/14/25 16:03 Leukocyte Esterase (Auto) 15 Elie/uL 02/14/25 16:03 Date of Service: 01/20/25 Procedure(s): US retroperitoneal comp Findings: Right kidney measures 12 cm x 6.9 cm Left kidney measures 12.2 cm x 6.9 cm Renal parenchyma within normal limits in echogenicity. No hydronephrosis. No definite renal stones. In the right kidney there are 3 simple anechoic cyst: 1.4 cm cyst in the midpole, 3.2 cm cyst in the midpole and 4.9 cm cyst in the upper pole. Normal color Doppler. Urinary bladder is unremarkable. Prevoid volume 586 mL. Postvoid volume 385 mL. Bilateral ureteral jets were not visualized. Prostate measures 4 cm x 4.5 cm by 4.2 cm. IMPRESSION: 1. No renal stones and no hydronephrosis bilaterally. 2. Left renal 3 simple cysts. 3. Postvoid residual volume 385 mL. Assessment & Plan Assessment & Plan (1) Elevated PSA: Code(s): R97.20 - Elevated prostate specific antigen [PSA] Category: Medical (2) Renal cyst: Code(s): N28.1 - Cyst of kidney, acquired Category: Medical Plan In office urinalysis results reviewed with the patient today; as noted above. We discussed continuation of elevated PSA we discussed potential causes of elevated PSA as well as further treatment options and risks and benefits of these treatment options. Recent retroperitoneal ultrasound results reviewed with the patient today; as noted above. PCPT risk calculator results reviewed with the patient today; as noted above. He denies any bothersome urinary issues or concerns. He reports be happy with current voiding parameters. Will obtain MRI of the prostate for further assessment evaluation. Follow-up in 4-6 weeks with imaging to be completed prior; or sooner with any issues, concerns, and or questions. Orders: Orders AMB Urinalysis Automated Today Z13.9 - Encounter for screening, unspecified MR Prostate wo/w con Today R97.20 - Elevated prostate specific antigen [PSA] Patient Instructions: The patient had an opportunity to ask questions regarding the treatment plan. All questions were answered. Physical exam, labs, and imaging were discussed and reviewed in detail. As well as risks, benefits, and discussion of treatment choices. No major barriers to understanding were identified. The patient expressed understanding and agreement with the above treatment plan. The patient was made aware they should contact our office by phone for worsening of their current condition, the appearance of new symptoms, or with any questions or concerns. Compliance is encouraged with any medications and follow up testing that is ordered. It is a privilege to be allowed the opportunity to participate in? your urological care.? Again, if you have any questions or concerns If you have any questions or concerns please do not hesitate to contact me. The office is [phone]. This note is constructed using voice recognition software. While every effort has been made to ensure accuracy fish bait processing supervisor errors may have been included. Yours sincerely, JUDITH Gaming Coding Level of Care Code Est Pt Level 3 (35469) Complex EM visit Add On G2211 Diagnoses Elevated PSA R97.20 Renal cyst N28.1
--- OUTSIDE RECORDS SUMMARY | 2025-02-14 15:42 | XMS_ITS | Clinical Summary ---
Author Organization [facility] [address] [facility] Address [address] [place] [address] Phone Care Team Providers Care Linux Architect Name Role Phone Kandi Newberry MD Primary Care Provider [phone] Allergies Active Allergy Reactions Criticality Noted Date Comments Bee Venom Protein (Honey Bee) 12/22/2024 Other Reaction(s): facial selling Medications tirzepatide (Mounjaro) 5 mg/0.5 mL injection Inject 0.5 mL (5 mg total) under the skin every 7 (seven) days. Active losartan (COZAAR) 50 mg tablet Take 1 tablet (50 mg total) by mouth 1 (one) time each day. Active metoprolol succinate (TOPROL-XL) 25 mg 24 hr tablet Take 1 tablet (25 mg total) by mouth 1 (one) time each day. Do not crush or chew. Active furosemide (LASIX) 40 mg tablet Take 1 tablet (40 mg total) by mouth 1 (one) time each day. Active fluticasone propion-salmete roL (ADVAIR DISKUS) 100-50 mcg/dose diskus inhaler Inhale 1 puff by mouth 2 (two) times a day. Rinse mouth with water after use to reduce aftertaste and incidence of candidiasis. Do not swallow. Active albuterol HFA (PROAIR HFA ; PROVENTIL HFA ; VENTOLIN HFA) 90 mcg/actuation inhaler Inhale 2 puffs by mouth every 6 (six) hours if needed for wheezing. Active zolpidem (AMBIEN) 5 mg tablet Take 1 tablet (5 mg total) by mouth at bedtime as needed for sleep. Max Daily Amount: 5 mg Active Encounters Date Type Department Care Team Description 12/22/2024 4:00 PM EDT Office Visit [facility] [address] [facility] [address] [place] [address] Michael Blount MD Aortic dilatation (CMS/HCC V24) (Primary Dx) from Last 3 Months Surgical History Surgery Date Site/Laterality Comments LITHOTRIPSY 2010 PROCEDURE: HISTORICAL LITHOTRIPSY PARATHYROIDECTOMY PROCEDURE: HISTORICAL PARATHYROIDECTOMY OTHER SURGICAL HISTORY PROCEDURE: TN LAMOPLASTY CERVICAL DCMPRN CORD 2/> SEG RCNSTJ OTHER SURGICAL HISTORY 2020 PROCEDURE: TN EXC NEUROMA MAJOR PERIPHERAL NRV XCP SCIATIC; COMMENT: phrenic nerve neurolysisand grafting sural nerve Medical History Medical History Date Comments HTN (hypertension) DX:HTN (hyper tension) Paralysis, diaphragm 2019 DX:Paralysi s, diaphragm; COMMENT: right Obesity DX:Obesity Renal stones DX:Renal stones Ascending aortic aneurysm (CMS/HCC V24) 2020 DX:Ascending aortic aneurysm (HCC); COMMENT: 46mm by ct [place] Scoliosis DX:Scoliosis Asthma DX:Asthma Family History Medical History Relation Name Comments No Known Problems Brother 65 Alzheimer's disease Father 87 Dementia Mother 85 Breast cancer Sister Relation Name Status Comments Brother 65 Alive Father 87 Mother 85 Sister Social History Tobacco Use Types Packs/Day Years Used Date Smoking Tobacco: Never Smokeless Tobacco: Never Alcohol Use Standard Drinks/Week Comments Yes 0 (1 standard drink = 0.6 oz pur e alcohol) a few drinks weekly Sex and Gender Information Value Date Recorded Sex Assigned at Not on file Legal Sex Male 9:48 PM EST Gender Identity Not on file Sexual Orientation Not on file Obstetrics History Last Filed Vital Signs Vital Sign Reading Time Taken Comments Blood Pressure 130/70 12/22/2024 3:55 PM EDT Pulse 69 12/22/2024 3:55 PM EDT Temperature - - Respiratory Rate - - Oxygen Saturation 97% 12/22/2024 3:55 PM EDT Inhaled Oxygen Concentration - - Weight 120 kg (264 lb) 12/22/2024 3:55 PM EDT Height 167.6 cm (5' 6 ) 12/22/2024 3:55 PM EDT Body Mass Index 42.61 12/22/2024 3:55 PM EDT Plan of Treatment Health Maintenance Due Date Last Done Comments Diabetes: Annual GFR (Glomerular Filtration Rate) 1964 Diabetes: Annual Foot Exam 1974 Diabetes: Annual Retina Eye Exam 1974 DTaP,Tdap,and Td Vaccines (1 - Tdap) 1983 Pneumococcal Vaccine: 50+ Years (1 of 2 - PCV) 1983 Pneumococcal Vaccine: Pediatrics (0 to 5 Years) and At-Risk Patients (6 to 49 Years) (1 of 2 - PCV) 1983 Cholesterol Screening (Lipid Panel) 07/12/2022 Colorectal Cancer Screening: Colonoscopy 07/12/2022 Depression Screening 07/12/2022 HIV Screening 07/12/2022 Hepatitis C Screening 07/12/2022 Social Influencers of Health Screening 07/12/2022 Hypertension/CHF/CAD Annual BMP Blood Test 07/26/2022 COVID-19 Vaccine ( season) 2024 06/01/2023, 07/16/2021, 12/01/2020, Additional history exists Zoster Vaccines (2 of 3) 05/16/2024 03/21/2024, 07/10 RSV Immunization Adult Patients (1 - Risk 60-74 years 1-dose series) 2024 Diabetes: Annual Urine Albumin-Creatinine Ratio (uACR) 12/23/2024 Diabetes: Blood Sugar Control Test (HGBA1C) 12/23/2024 Influenza Vaccine (#1) 2025 07/04/2024 HIB Vaccines Aged Out No longer eligi ble based on patient's age to complete this topic HPV Vaccines Aged Out No longer eligi ble based on patient's age to complete this topic Hepatitis A Vaccines Aged Out No long er eligible based on patient's age to complete this topic Hepatitis B Vaccines Aged Out No long er eligible based on patient's age to complete this topic IPV Vaccines Aged Out No longer eligi ble based on patient's age to complete this topic MMR Vaccines Aged Out No longer eligi ble based on patient's age to complete this topic Meningococcal ACWY Vaccine Aged Out N o longer eligible based on patient's age to complete this topic Meningococcal B Vaccine Aged Out No l onger eligible based on patient's age to complete this topic RSV Immunization Patients Under 20 months Aged Out No longer eligible based on patient's age to complete this topic Varicella Vaccines Aged Out No longer eligible based on patient's age to complete this topic Procedures Procedure Name Priority Date/Time Associated Diagnosis Comments ECG 12-LEAD Routine 12/22/2024 4:00 PM EDT Aortic dilatation (CMS/HCC V24) from Last 3 Months Results * ECG 12 lead (12/22/2024 4:00 PM EDT) Ventricular Rate ECG 69 BPM GEMUSE Atrial Rate 69 BPM GEMUSE P-R Interval 172 ms GEMUSE QRS Duration 114 ms GEMUSE Q-T Interval 398 ms GEMUSE QTc 426 ms GEMUSE P Wave [place] 14 degrees GEMUSE R [place] 8 degrees GEMUSE T [place] 32 degrees GEMUSE ECG Interpretation Normal sinus rhythm Normal ECG When compared with ECG of 03-MAY-2019 17:25, No significant change was found Confirmed by MD Jose Alejandro, Michael ([id number]) on 12/22/2024 4:57:43 PM GEMUSE 12/22/2024 4:00 PM EDT 12/22/2024 4:57 PM EDT us Michael Blount MD ECG ORDERABLES Final Res ult GEMUSE from Last 3 Months Insurance [facility] Care Teams Linux Architect Relationship Specialty Start Date End Date Kandi Newberry MD [address] [place] [address] [place] [id number] PCP - General Internal Medicine 12/07/24
--- OUTSIDE RECORDS SUMMARY | 2025-02-14 15:42 | XMS_ITS | Patient Health Record ---
Author Organization [facility] [address] Address [address] [place] [address] Care Team Providers Care Chief Service Dispatcher Name Role Phone Carlota Guaman Unavailable [phone] LEXI NEWBERRY Unavailable [phone] AKINSROSALINA WILKINS Unavailable [phone] BRADLEYMARCELLA BAIRES Unavailable [phone] Allergies No Known Allergies Results Component Value Reference Range Notes UA+Urine Culture Reviewed date:12/01/2024 11:52:16 AM Interpretation: Performing Lab:[facility] [place], [facility], Phone - [phone], Director - Shannon Notes/Report: Clinical Information:SRC: Clinical Information:SRC: Specific [place] 1.011 1.005-1.030 pH 6.0 5.0-7.5 Urine-Color Yellow [...] not generally considered to be clinically significant. PPC Hemoglobin A1C Reviewed date:11/24/2024 02:37:25 PM Interpretation:5.2% Performing Lab: Notes/Report: 5.2% Giovanny Esquivel LP Default Reviewed date:03/22/2024 10:10:57 AM Interpretation: Performing Lab:[facility] [place], [address] [facility], [place], Phone - [phone], Director - Shannon Notes/Report: Giovanny Esquivel LP Default A hand-written panel/profile was received from your office. In accordance with the [facility] Ambiguous Test Code Policy dated February 2003, we have completed your order by using the closest currently or formerly recognized AMA panel. We have assigned Lipid Panel, Test Code #498179 to this request. If this is not the testing you wished to receive on this specimen, please contact the [facility] Client Inquiry/Technical Services Department to clarify the test order. We appreciate your business. Comp. Metabolic Panel (14)-3 Reviewed date:03/25/2024 12:05:17 PM Interpretation: Performing Lab:[facility], [address], [place], Phone - [phone], Director - Shannon Notes/Report: Glucose 109 70-99 mg/dL BUN 14 [...] IU/L ALT (SGPT) 36 0-44 IU/L Lipid Panel-[id number] Reviewed date:03/22/2024 10:57:25 AM Interpretation: Performing Lab:[facility], [address], [place], Phone - [phone], Director - Shannon Notes/Report: Cholesterol, Total 200 100-199 mg/dL Triglycerides 83 0-149 mg/dL HDL Cholesterol 64 >39 mg/dL VLDL Cholesterol Kosta 15 5-40 mg/dL LDL Chol Calc (NIH) 121 0-99 mg/dL Giovanny Esquivel CMP14 Default A hand-written panel/profile was received from your office. In accordance with the [facility] Ambiguous Test Code Policy dated February 2003, we have completed your order by using the closest currently or formerly recognized AMA panel. We have assigned Comprehensive Metabolic Panel (14), Test Code #[id number] to this request. If this is not the testing you wished to receive on this specimen, please contact the [facility] Client Inquiry/Technical Services Department to clarify the test order. We appreciate your business. CBC With Differential/Platel et-[id number] Reviewed date:03/22/2024 11:18:12 AM Interpretation: Performing Lab:[facility], [address] [facility], Phone - [phone], Director - KYGissely Notes/Report: WBC 6.1 3.4-10.8 x10E3/uL RBC 4.91 [...] Immature Grans (Abs) 0.0 0.0-0.1 x10E3/uL Urinalysis, Complete-[id number] Reviewed date:03/25/2024 12:06:32 PM Interpretation: Performing Lab:[facility], [address] [facility], [place], Phone - [phone], Director - Shannon Notes/Report: Specific [place] 1.010 1.005-1.030 pH 6.5 5.0-7.5 Urine-Color Yellow [...] seen /lpf Bacteria None seen None seen/Few UA+Urine Culture Reviewed date:12/02/2024 09:20:22 AM Interpretation: Performing Lab:[facility] [place], [address] [facility], [place], Phone - [phone], Director - Shannon Notes/Report: Clinical Information:SRC:UC Specific [place] TNP Test not performed. Patient was unable to provide a self-collected specimen for the requested testing. The following test(s) were not performed: pH TNP Test not perfor med Protein TNP Test not perfor med Glucose TNP Test not perfor med Ketones TNP Test not perfor med Urine Culture, Routine TNP Test not performed PSA Total+% Free-[id number] Reviewed date:12/07/2024 08:44:14 AM Interpretation: Performing Lab:[facility] [place], [address], [place], Phone - [phone], Director - Shannon Notes/Report: Clinical Information:SRC:UC Prostate Specific Ag 6.1 0.0-4.0 ng/mL Neri ECLIA methodology. . According to the [place] [employer], Serum PSA should decrease and [...] The following test(s) were not performed: TEST: [id number] UA+Urine Culture Comp. Metabolic Panel (14)-3 Reviewed date:12/02/2024 09:20:44 AM Interpretation: Performing Lab:[facility], [facility], [place], Phone - [phone], Director - dean Notes/Report: Clinical Information:SRC:UC Glucose 105 70-99 mg/dL BUN 15 8-27 [...] 0-40 IU/L ALT (SGPT) 27 0-44 IU/L Lipid Panel-[id number] Reviewed date:12/02/2024 09:20:33 AM Interpretation: Performing Lab:[facility], [place], [place], Phone - [phone], Director - dean Notes/Report: Clinical Information:SRC:UC Cholesterol, Total 205 100-199 mg/dL Triglycerides 87 0-149 mg/dL HDL Cholesterol 64 >39 mg/dL VLDL Cholesterol Kosta 16 5-40 mg/dL LDL Chol Calc (NIH) 125 0-99 mg/dL CBC With Differential/Platel et-[id number] Reviewed date:12/02/2024 09:20:12 AM Interpretation: Performing Lab:[facility] [place], [address], [place], Phone - [phone], Director - Shannon Notes/Report: Clinical Information:SRC:UC WBC 6.0 3.4-10.8 x10E3/uL RBC 4.72 4.14-5.80 [...] % Immature Grans (Abs) 0.0 0.0-0.1 x10E3/uL Reason For Referral Diagnosis 1 Colon cancer screeni ng (Z12.11) [facility] Referring Provider First Name LEXI Referring Provider Last Name NILAM Referring Provider Speciality Internal M edicine Referred Provider Specialty Gastroentero logy General Notes faxed to Nany Ferrari [facility] [id number], [phone], [phone], Neptali Riddle 08/18/2024 11:22:55 AM > Clinical Notes Stef Hernandez 12/2024 01:39:29 PM > [phone] phone, Stef Hernandez 09/14/2024 01:43:11 PM > [...] Duration) Notes Start Date End Date Status Wixdaljit Inhub 100-50 MCG/ACT INHALE 1 PUFF BY MOUTH TWICE DAILY; Duration: 90 days Active Zolpidem Tartrate 5 MG 1 tablet at bedtime as needed Orally Once a day; Duration: 90 days 11/24/2024 Active Mounjaro 7.5 MG/0.5ML 0.5ML Subcutaneous once weekly; Duration: 30 days replaces ozempic Active Cialis 20 MG 1 tablet as needed Orally Once a day as needed; Duration: 90 days 11/25/2021 Active Metoprolol Succinate ER 25 MG TAKE 1 TABLET BY MOUTH EVERY DAY; Duration: 90 days Active Losartan Potassium 50 MG TAKE 1 TABLET BY MOUTH DAILY; Duration: 90 days Active Furosemide 40 MG 1 tablet Orally Once a day; Duration: 90 days Active Immunizations Vaccine Route Administration [...] FOR 20 Y RS. QUIT 2009 - 1/ PPD FOR 20 Y RS. QUIT 2009 - / PPD FOR 20 Y RS. QUIT 2009 - / PPD FOR 20 Y RS. 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) Type 2 diabetes mellitus with unspecified complications (E11.8) Active confirmed Problem Hyperlipidemia (72651477) Hyperlipidemia, unspecified (E78.5) Active confirmed Problem Insomnia (024299428) Other insom haley (G47.09) Active confirmed Problem Chronic pain (85419262) Other chronic pain (G89.29) Active confirmed Problem Essential hypertension (34757985) Essential (primary) hypertension (I10) Active confirmed Problem Exacerbation of asthma (638707845) Unspecified asthma with (acute) exacerbation (J45.901) Active confirmed Problem Adult health examination (705580331) Encounter for general adult medical examination without abnormal findings (Z00.00) Active confirmed Problem Body mass index 40+ - severely obese (756243815) Body mass index (BMI) 40.0-44.9, adult (Z68.41) Active confirmed Problem Morbid obesity (675790896) Morbid obesity (E66.01) Active confirmed Problem Hyperlipidaemia (78940971) Hyperlipidemia, unspecified hyperlipidemia type (E78.5) Active confirmed Problem Hyperlipoproteinemia (8374994) Acquired hyperlipoproteinemia (E78.5) Active confirmed Problem Adult health examination (629189908) Adult general medical exam (Z00.00) Active confirmed Problem Annual health maintenance examination (41103175) Annual physical exam (Z00.00) Active confirmed Problem Accelerated essentia l hypertension (88701134) Accelerated essential hypertension (I10) Active confirmed Problem Erectile dysfunction (disorder) (962473011) Erectile dysfunction, unspecified erectile dysfunction type (N52.9) Active confirmed Problem Aneurysm (07053813) Aneurysm (I72.9) Active con firmed Problem Renal stone (73835816) Renal stone (N20.0) Active confirmed Problem Uncomplicated mild persistent asthma (617213193) Mild persistent asthma without complication (J45.30) Active confirmed Problem Morbid obesity (380887259) Obesity, Class III, BMI 40-49.9 (morbid obesity) (E66.01) Active confirmed Problem Screening for malignant neoplasm of prostate (812453205) Encounter for prostate cancer screening (Z12.5) Active confirmed Problem Lipid screening (947786138) Lipid screening (Z13.220) Active confirmed Problem Low back pain (finding) (921471811) Lumbar back pain (M54.50) Active confirmed Vital Signs Heart Rate 76 /min 01/04/2025 Blood pressure diastolic 80 mm Hg 01/04/2025 Oximetry 96 % 01/04/2025 Height 66 in 01/04/2025 Blood pressure systolic 120 mm Hg 01/04/2025 Weight 270 lbs 01/04/2025 BMI 43.57 kg/m2 01/04/2025 Encounters Encounter Location Date Provider Diagnosis [facility] [address] [place] [address] 03/21/2024 LEXI NEWBERRY Type 2 diabetes jessica itus with unspecified complications E11.8 ; Shortness of breath R06.02 ; Hyperlipidemia, unspecified E78.5 ; Essential (primary) hypertension I10 ; Adult general medical exam Z00.00 and Encounter for immunization Z23 [facility] [address] 05/10/2024 MARCELLA HOANG Soft tissue infectio n L08.[address] [facility] [address] [place] [address] 07/04/2024 LEXI NEWBERRY Shortness of breath R06.02 ; Hyperlipidemia, unspecified E78.5 ; Morbid obesity E66.01 ; Body mass index (BMI) 40.0-44.9, adult Z68.41 and Encounter for immunization Z23 [facility] [address] 08/18/2024 LEXI NEWBERRY Annual physical exam Z00.00 ; Lipid screening Z13.220 ; Accelerated essential hypertension I10 ; Encounter for prostate cancer screening Z12.5 and Morbid obesity E66.01 [facility] [address] 10/24/2024 Carlota Svrcek Sore throat J02.9 [facility] [address] 11/24/2024 Carloat Svrcek Type 2 diabetes jessica itus with unspecified complications E11.8 ; Essential (primary) hypertension I10 ; Morbid obesity E66.01 ; Elevated PSA R97.20 ; Erectile dysfunction, unspecified erectile dysfunction type N52.9 ; Other insomnia G47.09 and Mild persistent asthma without complication J45.30 [facility] [address] 01/04/2025 Carlota Svrcek Essential (primary) hypertension I10 ; Type 2 diabetes mellitus with unspecified complications E11.8 ; Morbid obesity E66.01 and Mild persistent asthma without complication J45.30 [facility] [address] [address] 03/21/2024 LEXI NEWBERRY Essential (primary) hypertension I10 [facility] [address] 05/10/2024 TALAL NEWBERRY [facility] [address] [place] [address] 06/27/2024 TALAL NEWBERRY [facility] [address] [place] [address] 07/04/2024 TALAL NEWBERRY Type 2 diabetes jessica itus with unspecified complications E11.[address] [facility] [address] [place] [address] 07/21/2024 ROSALINA AKINS [facility] [address] [place] [address] 08/09/2024 TALAL NEWBERRY [facility] [address] [place] [address] 08/18/2024 TALAL NEWBERRY [facility] [address] [place] [address] 09/02/2024 TALAL NEWBERRY [facility] [address] [place] [address] 09/14/2024 TALAL NEWBERRY [facility] [address] [place] [address] 10/12/2024 TALAL NEWBERRY [facility] [address] [address] [place] [address] 10/24/2024 Carlota Svrcek [facility] [address] [place] [address] 11/22/2024 Carlota Svrcek [facility] [address] [place] [address] [place] [address] 12/19/2024 Cralota Svrcek Type 2 diabetes jessica itus with unspecified complications E11.8 [facility] [address] [place] [address] [place] [address] 12/20/2024 Carlota Svrcek Type 2 diabetes jessica itus with unspecified complications E11.8 [facility] [address] [place] [address] [place] [address] 02/13/2025 Carlota Svrcek Assessments Encounter Date Diagnosis (ICD Code) Assessment [...] return soon to the office if necessary 07/04/2024 Shortness of breath (ICD-10 - R06.02) [...] Wixela Inhub 100-50 MCG/ACT. Currently sees a toy electric train repairer. Will follow with toy electric train repairer. # Obstructive Sleep Apnea: Stable. States wearing [...] to contact the office and be reevaluated. 03/21/2024 Shortness of breath (ICD-10 - R06.02) [...] call sooner if new symptoms arise. 03/21/2024 Type 2 diabetes mellitus with unspecified [...] call sooner if new symptoms arise. 03/21/2024 Essential (primary) hypertension (ICD-10 - I10) 07/04/2024 Type 2 diabetes mellitus with unspecified complications (ICD-10 - E11.8) 08/18/2024 Annual physical exam (ICD-10 - Z00.00) [...] log exercise and discussed fitness Apps like Weroom which can help keep log off calories [...] and hemoglobin A1c testing might be appropriate. 11/24/2024 Essential (primary) hypertension (ICD-10 - I10) [...] Dictation was accomplished with the use of [employer] voice recognition software, prone to medical misidentifications [...] Dictation was accomplished with the use of [employer] voice recognition software, prone to medical misidentifications [...] Dictation was accomplished with the use of [employer] voice recognition software, prone to medical misidentifications and grammatical errors. This is unintentional and the practitioner does try to identify and correct these, but some could still be present. Please do not hesitate to contact practitioner for clarification. All questions answered to patients satisfaction. Patient verbalized understanding of diagnosis and treatments explained. To call sooner prior to next visit it any questions/concerns arise. 10/24/2024 Sore throat (ICD-10 - J02.9) #Pharyngitis. [...] Dictation was accomplished with the use of [employer] voice recognition software, prone to medical misidentifications [...] Dictation was accomplished with the use of [employer] voice recognition software, prone to medical misidentifications [...] next visit it any questions/concerns arise. 01/04/2025 Morbid obesity (ICD-10 - E66.01) [...] Dictation was accomplished with the use of [employer] voice recognition software, prone to medical misidentifications [...] next visit it any questions/concerns arise. 11/24/2024 Morbid obesity (ICD-10 - E66.01) #Type [...] Dictation was accomplished with the use of [employer] voice recognition software, prone to medical misidentifications [...] log exercise and discussed fitness Apps like [employer] which can help keep log off calories [...] to call sooner if new symptoms arise. 07/04/2024 Hyperlipidemia, unspecified (ICD-10 - E78.5) Pearl [...] Wixela Inhub 100-50 MCG/ACT. Currently sees a toy electric train repairer. Will follow with toy electric train repairer. # Obstructive Sleep Apnea: Stable. States wearing [...] to contact the office and be reevaluated. 03/21/2024 Essential (primary) hypertension (ICD-10 - I10) [...] to call sooner if new symptoms arise. 07/04/2024 Morbid obesity (ICD-10 - E66.01) [...] Wixela Inhub 100-50 MCG/ACT. Currently sees a toy electric train repairer. Will follow with toy electric train repairer. # Obstructive Sleep Apnea: Stable. States wearing [...] to contact the office and be reevaluated. 08/18/2024 Accelerated essential hypertension (ICD-10 - I10) [...] log exercise and discussed fitness Apps like [employer] which can help keep log off calories [...] and hemoglobin A1c testing might be appropriate. 11/24/2024 Elevated PSA (ICD-10 - R97.20) #Type [...] Dictation was accomplished with the use of [employer] voice recognition software, prone to medical misidentifications [...] Dictation was accomplished with the use of [employer] voice recognition software, prone to medical misidentifications [...] next visit it any questions/concerns arise. 11/24/2024 Erectile dysfunction, unspecified erectile dysfunction type [...] Dictation was accomplished with the use of [employer] voice recognition software, prone to medical misidentifications [...] log exercise and discussed fitness Apps like Weroom which can help keep log off calories [...] hemoglobin A1c testing might be appropriate. 07/04/2024 Body mass index (BMI) 40.0-44.9, adult [...] Wixela Inhub 100-50 MCG/ACT. Currently sees a toy electric train repairer. Will follow with toy electric train repairer. # Obstructive Sleep Apnea: Stable. States wearing [...] contact the office and be reevaluated. 07/04/2024 Encounter for immunization (ICD-10 - Z23) [...] Wixela Inhub 100-50 MCG/ACT. Currently sees a toy electric train repairer. Will follow with toy electric train repairer. # Obstructive Sleep Apnea: Stable. States wearing [...] to contact the office and be reevaluated. 03/21/2024 Adult general medical exam (ICD-10 - [...] log exercise and discussed fitness Apps like W[employer] which can help keep log off calories [...] and hemoglobin A1c testing might be appropriate. 11/24/2024 Other insomnia (ICD-10 - G47.09) #Type [...] Dictation was accomplished with the use of [employer] voice recognition software, prone to medical misidentifications [...] Dictation was accomplished with the use of [employer] voice recognition software, prone to medical misidentifications [...] Ultrasound : Kidneys and Bladder 020 EKG 11/25/2021 EKG 08/31/2018 EKG 08/31/2018 APTT 09/11/2020 CBC (COMPLETE BLOOD COUNT) 08/31/2018 CBC (COMPLETE BLOOD COUNT) 07/01/2022 CBC (COMPLETE BLOOD COUNT) 09/11/2020 CBC (COMPLETE BLOOD COUNT) 12/17/2020 CBC (COMPLETE BLOOD COUNT) 06/29/2018 COMPREHENSIVE METABOLIC PANEL 12/17/2020 COMPREHENSIVE METABOLIC PANEL 09/11/2020 COMPREHENSIVE METABOLIC PANEL 08/31/2018 COMPREHENSIVE METABOLIC PANEL 06/29/2018 CRP, HIGH SENSITIVITY 08/31/2018 HEMOGLOBIN A1C 06/29/2018 HEMOGLOBIN A1C 08/31/2018 HEMOGLOBIN A1C 12/17/2020 INSULIN 08/31/2018 LIPID PANEL 08/31/2018 LIPID PANEL 12/17/2020 LIPID PANEL 06/29/2018 PSA, SCREEN 06/29/2018 PSA, SCREEN 08/31/2018 TESTOSTERONE, FREE AND TOTAL (MALES >15 YRS OLD) 08/31/2018 TSH WITH REFLEX TO FT4 06/29/2018 URINALYSIS, COMPLETE 08/31/2018 URINALYSIS, COMPLETE 12/17/2020 URINALYSIS, COMPLETE 06/29/2018 HIV 1 & 2 Ab 09/11/2020 MRI L-Spine w/o Contrast 10/21/2022 UC XR C-Spine 2-3 Views 05/02/2019 XR Knee 3 Views LT 01/09/2022 PT/INR 09/11/2020 UA WITH CULTURE IF INDICATED 08/18/2024 LIPID PANEL, STANDARD 08/18/2024 LIPID PANEL, STANDARD 03/21/2024 LIPID PANEL, STANDARD 10/19/2023 LIPID PANEL, STANDARD 01/26/2023 LIPID PANEL, STANDARD 09/01/2022 LIPID PANEL, STANDARD 03/31/2022 LIPID PANEL, STANDARD 06/06/2021 COMPREHENSIVE METABOLIC PANEL 03/31/2022 COMPREHENSIVE METABOLIC PANEL 09/01/2022 COMPREHENSIVE METABOLIC PANEL 01/26/2023 COMPREHENSIVE METABOLIC PANEL 10/19/2023 COMPREHENSIVE METABOLIC PANEL 08/18/2024 COMPREHENSIVE METABOLIC PANEL 03/21/2024 CBC (INCLUDES DIFF/PLT) 03/21/2024 CBC (INCLUDES DIFF/PLT) 08/18/2024 CBC (INCLUDES DIFF/PLT) 10/19/2023 CBC (INCLUDES DIFF/PLT) 01/26/2023 CBC (INCLUDES DIFF/PLT) 09/01/2022 CBC (INCLUDES DIFF/PLT) 03/31/2022 URINALYSIS, COMPLETE 01/26/2023 URINALYSIS, COMPLETE 03/31/2022 URINALYSIS, COMPLETE 09/01/2022 URINALYSIS, COMPLETE 10/19/2023 URINALYSIS, COMPLETE W/REFLEX TO CULTURE 07/01/2022 HEMOGLOBIN A1c 01/26/2023 HEMOGLOBIN A1c 06/06/2021 PSA (FREE AND TOTAL) 08/18/2024 PSA, TOTAL 03/31/2022 HEPATITIS B ANTIBODY, QUANT 09/11/2020 HEPATITIS A ANTIBODY TOTAL 09/11/2020 US Duplex Venous Study Bilat 09/11/2020 PPC Hemoglobin A1C 01/04/2025 Future Test Test Name Order Date COMPLETE URINALYSIS 09/22/2020 Next Appt Details Provider Name:Carlota Guaman, 0 03/07/2025 03:00:00 PM, [address] [facility], [facility] [address], [place], [address], Insurance Providers Payer Name Payer Address Payer Phone Subscriber Number Group Number Insured Name Patient Relationship to Insured Coverage Start Date Coverage End Date [facility] [address] [place] [address] [phone] [id number] PEARL AGUILAR Self - patient is the [...]
== END 2025-02-14 16:41 | disposition home or self-care (01) ==
LOC: HO.HUSH 14:58
PROVIDERS: PCP Internal Medicine; Visit Provider Nurse Practitioner Family
DX: R97.20 Elevated prostate specific antigen [PSA] (principal); N28.1 Cyst of kidney, acquired; Z13.9 Encounter for screening, unspecified
CPT/HCPCS: 99213

== ENCOUNTER → 2025-02-14 14:54 | Outpatient (BNVA) | payer BC, SELFPAY | PROVIDERS: PCP Internal Medicine; Visit Provider Nurse Practitioner Family | DX: R97.20 Elevated prostate specific antigen [PSA] (principal); N28.1 Cyst of kidney, acquired | CPT/HCPCS: 81003 ==

== ENCOUNTER 2025-03-02 07:33 | Outpatient (AMB) | payer BC, SELFPAY ==
--- NOTE | 2025-03-02 07:33 | A.OFFVIS_ITS ---
Intake Visit Reasons: risks and benefits of prostate biopsy Intake Note: Patient presents today for tele visit to discuss prostate biopsy Urology Medications: Tadalafil Blood Thinner: none Accounting Supervisor Required: No Accompanied by: Self / Same As Patient Allergies No Known Allergies Allergy (Verified 03/02/25 07:43) Medication List - Last Reconciled 03/02/25 by MARIO Gaming-KARAN albuterol sulfate 90 mcg/actuation 1 puff inhalation Q6H PRN fluticasone propion-salmeterol 100-50 mcg/dose (Wixela Inhub) 1 ea inhalation BID furosemide 40 mg PO DAILY losartan 50 mg PO DAILY metoprolol succinate ER 25 mg PO DAILY sulfamethoxazole-trimethoprim 800-160 mg (Bactrim DS) 1 tab PO BID 14 days tadalafil mg PO tirzepatide (Mounjaro) 7.5 mg subcut QWEEK HPI Comments Details: Bjorn is a very pleasant 59-year-old male patient of Dr. Newberry. He has a past medical history of prediabetes, paralysis of the right diaphragm, scoliosis, ED, hyperparathyroidism, asthma, nephrolithiasis, obstructive sleep apnea, hypertension, and obesity. He is being followed up on today via video telehealth for his elevated PSA. Of note, patient was seen approximately 2-3 weeks ago at which time we discussed further treatment options of elevated PSA and patient wished to proceed with prostate MRI. However he has recently called the office and would like to proceed with prostate biopsy. He is currently on antibiotic therapy for potential prostatitis. We did discuss potential causes of elevated PSA. He also has a longstanding history of nephrolithiasis as well as renal cysts. Retroperitoneal ultrasound 02/01 noted no nephrolithiasis or hydronephrosis noted bilaterally. There are 3 right simple anechoic cysts. The bladder is unremarkable. Prostate measures approximately 40 mL. When asked he denies any bothersome urinary issues or concerns. We did discussed at length potential causes of elevated PSA as well as further treatment options and risks and benefits of these treatment options. PCPT risk calculator results were reviewed 65% chance prostate biopsy negative for prostate cancer, 26% chance low-grade prostate cancer, and 9% chance of high-grade prostate cancer. He denies urinary urgency, urinary frequency, incontinence, nocturia, hematuria, dysuria, foul smelling urine, changes to urinary stream, fever, and or chills. He is happy with his current voiding parameters. He denies any known family history of prostate cancer. He reports he had been following up with his PCP annually for PSAs and believes they were within normal limits prior to most recent elevated PSA in November. I do not have other PSA results to review and or trend. He reports having had SADIE with PCP and was noted to be within normal limits. He otherwise offers no other issues or concerns at this time. PSAs are as follows: PSA: 12/02 6.1, 02/01 6.7 with % free PSA 14.5%. [facility] Medical History Pre-diabetes Paralysis Scoliosis Erectile dysfunction History of hyperparathyroidism Asthma History of kidney stones Obstructive sleep apnea Essential (primary) hypertension Morbid (severe) obesity due to excess calories Review of Systems Const Reports as per HPI Eyes Reports no additional complaints ENT Reports no additional complaints Card Reports as per HPI Resp Reports as per HPI GI Reports no additional complaints Reports as per HPI Musc Reports no additional complaints Neuro Reports no additional complaints Psych Reports no additional complaints Endo Reports as per HPI Physical Exam Const General: cooperative, healthy appearing, comfortable, no acute distress, well developed, alert and awake Orientation/consciousness: patient oriented x3 Resp Effort & Inspection: normal respiratory effort and able to speak in complete sentences Neuro General: patient oriented x3 Psych Appearance: grossly normal and well kempt Speech and movement: Clear speech present Attitude: cooperative Thought process: Normal thought process present Thought content: Normal thought content present Insight: Fair insight present (Psych) Judgement: Fair judgement present (Psych) Telehealth Telehealth Telehealth Platform: [facility] Location of provider rendering services: practice address Location of patient: address on file Patient Identification confirmed using: Name, : Yes Telehealth method: video Patient verbally consented to treatment: Yes Patient verbally consented to billing insurance company: Yes Minutes spent on Phone/Video with Pt.: 20 Assessment & Plan Assessment & Plan (1) Elevated PSA: Code(s): R97.20 - Elevated prostate specific antigen [PSA] Category: Medical Plan: Plan Risks and benefits regarding trans rectal ultrasound with prostate biopsy were discussed.? Options of continued surveillance, no treatment and biopsy were offered. The risks include but are not limited to, urinary tract infection, sepsis, difficulty urinating, bleeding into the rectum or bladder that requires intervention and transfusion,and failure to diagnose prostate cancer. The patient understands the options and the risks involved. They wish to proceed. Printed information was provided to ensure he remains off anticoagulation for the appropriate length of time. He may require cardiology or PCP clearance.? An antibiotic will be administered prior to, and following the procedure Plan We discussed potential causes of elevated PSA as well as further treatment options and risks and benefits of these treatment options. All questions were answered. Will proceed with scheduling of prostate biopsy at this time. Prescription provided for antibiotic therapy prior to procedure. We discussed importance of finishing antibiotics as prescribed. Will obtain redraw of PSA 4-6 weeks status post completion of antibiotic therapy. Follow-up per doctor's orders; or sooner with any issues, concerns, and or questions. Orders: Orders US biopsy prostate Today R97.20 - Elevated prostate specific antigen [PSA] Medications: New levofloxacin take 1 tablet day before procedure, 1 tablet day of procedure and 1 tablet day after procedure 500 mg PO DAILY 3 tabs 0RF 3 days Patient Instructions: The patient had an opportunity to ask questions regarding the treatment plan. All questions were answered. Physical exam, labs, and imaging were discussed and reviewed in detail. As well as risks, benefits, and discussion of treatment choices. No major barriers to understanding were identified. The patient expressed understanding and agreement with the above treatment plan. The patient was made aware they should contact our office by phone for worsening of their current condition, the appearance of new symptoms, or with any questions or concerns. Compliance is encouraged with any medications and follow up testing that is ordered. It is a privilege to be allowed the opportunity to participate in? your urological care.? Again, if you have any questions or concerns If you have any questions or concerns please do not hesitate to contact me. The office is [phone]. This note is constructed using voice recognition software. While every effort has been made to ensure accuracy billiard player errors may have been included. Yours sincerely, Sarah Lovett, PHYSICIAN OFFICE ASSISTANT-BC Coding Level of Care Code Tele Est Pt Level 4 (55546) Diagnoses Elevated PSA R97.20
--- OUTSIDE RECORDS SUMMARY | 2025-03-02 07:35 | XMS_ITS | Clinical Summary ---
Author Organization [facility] [address] [facility] Address [address] [place] [address] Phone Care Team Providers Care Caustic Pump Operator Name Role Phone Kandi Newberry MD Primary Care Provider [phone] Allergies Active Allergy Reactions Criticality Noted Date [...] Description 12/22/2024 4:00 PM EDT Office Visit [facility] [address] [facility] [address] [place] [address] Michael Blount MD Aortic dilatation (CMS/HCC V24) (Primary Dx) from Last 3 Months Surgical History Surgery Date Site/Laterality Comments LITHOTRIPSY 2010 PROCEDURE: HISTORICAL LITHOTRIPSY PARATHYROIDECTOMY PROCEDURE: HISTORICAL PARATHYROIDECTOMY OTHER SURGICAL HISTORY PROCEDURE: MD LAMOPLASTY CERVICAL DCMPRN CORD 2/> SEG RCNSTJ OTHER SURGICAL HISTORY 2020 PROCEDURE: MD EXC NEUROMA MAJOR PERIPHERAL NRV XCP SCIATIC; [...] Years (1 of 2 - PCV) 1983 Cholesterol Screening (Lipid Panel) 07/12/2022 Colorectal Cancer Screening: Colonoscopy 07/12/2022 HIV Screening 07/12/2022 Hepatitis C Screening 07/12/2022 Social Influencers of Health Screening 07/12/2022 Hypertension/CHF/CAD Annual BMP Blood Test 07/26/2022 COVID-19 Vaccine ( season) 2024 06/01/2023, 07/16/2021, 12/01/2020, Additional history exists Zoster Vaccines (2 of 3) 05/16/2024 03/21/2024, 07/10 Depression Screening 08/10/2024 RSV Immunization Adult Patients (1 - Risk [...] Routine 12/22/2024 4:00 PM EDT Aortic dilatation ([facility] V24) from Last 3 Months Results * ECG 12 lead (12/22/2024 4:00 PM EDT) Ventricular Rate ECG 69 BPM GEMUSE Atrial Rate 69 BPM GEMUSE P-R Interval 172 ms GEMUSE QRS Duration 114 ms GEMUSE Q-T Interval 398 ms GEMUSE QTc 426 ms GEMUSE P Wave Show Low 14 degrees GEMUSE R Show Low 8 degrees GEMUSE T Show Low 32 degrees GEMUSE ECG Interpretation Normal sinus rhythm Normal ECG When compared with ECG of 03-MAY-2019 17:25, No significant change was found Confirmed by MD Jose Alejandro, Michael ([id number]) on 12/22/2024 4:57:43 PM GEMUSE 12/22/2024 4:00 PM EDT 12/22/2024 4:57 PM EDT us Michael Blount MD ECG ORDERABLES Final Res ult GEMUSE from Last 3 Months Insurance [facility] Care Teams Caustic Pump Operator Relationship Specialty Start Date End Date Kandi Newberry MD [address] [place] [address] PCP - General Internal Medicine 12/07/24
--- OUTSIDE RECORDS SUMMARY | 2025-03-02 07:35 | XMS_ITS | Patient Health Record ---
Author Organization [facility] [address] Address [address] [place] [address] Care Team Providers Care Wood Fence Erector Name Role Phone Carlota Guaman Unavailable [phone] LEXI NEWBERRY Unavailable [phone] AKINSROSALINA WILKINS Unavailable [phone] BRADLEYMARCELLA BAIRES Unavailable [phone] Allergies No Known Allergies Results Component Value Reference Range Notes UA+Urine Culture Reviewed date:12/01/2024 11:52:16 AM Interpretation: Performing Lab:[facility], [facility], Phone - [phone], Director - Shannon Notes/Report: Clinical Information:SRC:UC Clinical Information:SRC:UC Specific [place] 1.011 1.005-1.030 pH 6.0 5.0-7.5 Urine-Color Yellow [...] 02:37:25 PM Interpretation:5.2% Performing Lab: Notes/Report: 5.2% UA+Urine Culture Reviewed date:12/02/2024 09:20:22 AM Interpretation: Performing Lab:[facility], [address] [facility], [place], Phone - [phone], Director - Shannon Notes/Report: Clinical Information:SRC:UC Specific [place] TNP Test not performed. Patient was unable to provide a self-collected specimen for the requested testing. The following test(s) were not performed: pH TNP Test not perfor med Protein TNP Test not perfor med Glucose TNP Test not perfor med Ketones TNP Test not perfor med Urine Culture, Routine TNP Test not performed Sloandheeraj Sierra KIM Default Reviewed date:03/22/2024 10:10:57 AM Interpretation: Performing Lab:[facility] [place], [address] [facility], [place], Phone - [phone], Director - Shannon Notes/Report: Giovanny Esquivel LP Default A hand-written panel/profile was received from your office. In accordance with the [employer] Ambiguous Test Code Policy dated February 2003, we have completed your order by using the closest currently or formerly recognized AMA panel. We have assigned Lipid Panel, Test Code #[id number] to this request. If this is not the testing you wished to receive on this specimen, please contact the [facility] Client Inquiry/Technical Services Department to clarify the test order. We appreciate your business. PSA Total+% Free-[id number] Reviewed date:12/07/2024 08:44:14 AM Interpretation: Performing Lab:[facility] [place], [address], [place], Phone - [phone], Director - Shannon Notes/Report: Clinical Information:SRC: Prostate Specific Ag 6.1 0.0-4.0 ng/mL Neri ECLIA methodology. . According to the [employer], Serum PSA should decrease and [...] of prostate cancer for men with non-suspicious SADEI results and total PSA between 4 and 10 ng/mL, by patient age (Jovanyona et al, ZACK 1998, 279:1542). % Free [...] The following test(s) were not performed: TEST: [id number] UA+Urine Culture Comp. Metabolic Panel (14)- Reviewed date:12/02/2024 09:20:44 AM Interpretation: Performing Lab:[facility], [address] [facility], [place], Phone - [phone], Director - MDJoanwili Notes/Report: Clinical Information:SRC: Glucose 105 70-99 mg/dL [...] (SGPT) 27 0-44 IU/L Comp. Metabolic Panel (14)- Reviewed date:03/25/2024 12:05:17 PM Interpretation: Performing Lab:[facility], [employer], [place], Phone - [phone], Director - dean Notes/Report: Glucose 109 70-99 mg/dL BUN 14 [...] IU/L ALT (SGPT) 36 0-44 IU/L Lipid Panel-[id number] Reviewed date:03/22/2024 10:57:25 AM Interpretation: Performing Lab:[facility], [address] [place] [address], Phone - [phone], Director - Shannon Notes/Report: Cholesterol, Total 200 100-199 mg/dL Triglycerides 83 0-149 mg/dL HDL Cholesterol 64 >39 mg/dL VLDL Cholesterol Kosta 15 5-40 mg/dL LDL Chol Calc (NIH) 121 0-99 mg/dL Giovanny Esquivel CMP14 Default A hand-written panel/profile was received from your office. In accordance with the [employer] Ambiguous Test Code Policy dated February 2003, we have completed your order by using the closest currently or formerly recognized AMA panel. We have assigned Comprehensive Metabolic Panel (14), Test Code #[id number] to this request. If this is not the testing you wished to receive on this specimen, please contact the [facility] Client Inquiry/Technical Services Department to clarify the test order. We appreciate your business. Lipid Panel-[id number] Reviewed date:12/02/2024 09:20:33 AM Interpretation: Performing Lab:[facility], [address] [place] [address], Phone - [phone], Director - Shannon Notes/Report: Clinical Information:SRC:UC Cholesterol, Total 205 100-199 mg/dL Triglycerides 87 0-149 mg/dL HDL Cholesterol 64 >39 mg/dL VLDL Cholesterol Kosta 16 5-40 mg/dL LDL Chol Calc (NIH) 125 0-99 mg/dL CBC With Differential/Platel et-[id number] Reviewed date:12/02/2024 09:20:12 AM Interpretation: Performing Lab:[facility], [address] [facility], Phone - [phone], Director - Shannon Notes/Report: Clinical Information:SRC: WBC 6.0 3.4-10.8 x10E3/uL [...] (Abs) 0.0 0.0-0.1 x10E3/uL CBC With Differential/Platel et-[id number] Reviewed date:03/22/2024 11:18:12 AM Interpretation: Performing Lab:[facility] [place], [address] [place] [address], Phone - [phone], Director - Shannon Notes/Report: WBC 6.1 3.4-10.8 [...] Immature Grans (Abs) 0.0 0.0-0.1 x10E3/uL Urinalysis, Complete-[id number] Reviewed date:03/25/2024 12:06:32 PM Interpretation: Performing Lab:[facility], [address] [place] [address], [place], Phone - [phone], Director - Shannon Notes/Report: Specific [place] 1.010 1.005-1.030 pH 6.5 5.0-7.5 Urine-Color Yellow [...] seen /lpf Bacteria None seen None seen/Few Reason For Referral Diagnosis 1 Colon cancer screeni ng (Z12.11) Referral Organization [facility] [address] Referring Provider First Name LEXI Referring Provider Last Name NILAM Referring Provider Speciality Internal M edicine Referred Provider Specialty Gastroentero logy General Notes faxed to garcia YARBROUGH, [facility] [id number], [phone], [phone], Neptali Riddle 08/18/2024 11:22:55 AM > Clinical Notes Stef Hernandez 12/2024 01:39:29 PM > [phone] phone, Stef Hernandez 09/14/2024 01:43:11 PM > [...] Duration) Notes Start Date End Date Status Zolpidem Tartrate 5 MG TAKE 1 TABLET BY MOUTH AT BEDTIME NEEDED.; Duration: 90 02/28/2025 Active Wixela Inhub 100-50 MCG/ACT INHALE 1 PUFF BY MOUTH TWICE DAILY; Duration: 90 days Active Mounjaro 7.5 MG/0.5ML 0.5ML Subcutaneous once [...] Points 9 Interpretation Positive Section Notes: QUIT 08/11 PPD FOR 20 Y RS. [...] FOR 20 Y RS. QUIT 2009 - 1 PPD FOR 20 Y RS. QUIT 2009 - 08/11 PPD FOR 20 Y RS. QUIT 2009 - 08/11 PPD FOR 20 Y RS. QUIT 2009 - 08/11 PPD FOR 20 Y RS. QUIT 2009 - 1 PPD FOR 20 Y RS. QUIT 2009 - 1 PPD FOR 20 Y RS. QUIT 2009 - 1 PPD FOR 20 Y RS. QUIT 2009 - 1 PPD FOR 20 Y RS. QUIT 2009 - 08/11 PPD FOR 20 Y RS. QUIT 2009 - 1 PPD FOR 20 Y RS. QUIT 2009 [...] - / PPD FOR 20 Y RS. Problems Problem Type SNOMED Code ICD Code Onset Dates Problem Status W/U Status Risk Notes Problem Low back pain (finding) (951997241) Lumbar back pain (M54.50) Active confirmed Problem Morbid obesity (841494068) Obesity, Class III, BMI 40-49.9 (morbid obesity) (E66.01) Active confirmed Problem Hyperlipoproteinemia (6294855) Acquired hyperlipoproteinemia (E78.5) Active confirmed Problem Adult health examination (956230968) Encounter for general adult medical examination without abnormal findings (Z00.00) Active confirmed Problem Chronic pain (11656498) Other chronic pain (G89.29) Active confirmed Problem Lipid screening (136859324) Lipid screening (Z13.220) Active confirmed Problem Screening for malignant neoplasm of prostate (717426794) Encounter for prostate cancer screening (Z12.5) Active confirmed Problem Uncomplicated mild persistent asthma (888573177) Mild persistent asthma without complication (J45.30) Active confirmed Problem Renal stone (87085689) Renal stone (N20.0) Active confirmed Problem Aneurysm (12708489) Aneurysm (I72.9) Active con firmed Problem Erectile dysfunction (disorder) (420148802) Erectile dysfunction, unspecified erectile dysfunction type (N52.9) Active confirmed Problem Accelerated essentia l hypertension (63281747) Accelerated essential hypertension (I10) Active confirmed Problem Annual health maintenance examination (06013013) Annual physical exam (Z00.00) Active confirmed Problem Adult health examination (743564574) Adult general medical exam (Z00.00) Active confirmed Problem Morbid obesity (385361680) Morbid obesity (E66.01) Active confirmed Problem Exacerbation of asthma (777439372) Unspecified asthma with (acute) exacerbation (J45.901) Active confirmed Problem Insomnia (734288863) Other insom haley (G47.09) Active confirmed Problem Hyperlipidaemia (02300947) Hyperlipidemia, unspecified hyperlipidemia type (E78.5) Active confirmed Problem Body mass index 40+ - severely obese (409825481) Body mass index (BMI) 40.0-44.9, adult (Z68.41) Active confirmed Problem Essential hypertension (68191082) Essential (primary) hypertension (I10) Active confirmed Problem Hyperlipidemia (61439739) Hyperlipidemia, unspecified (E78.5) Active confirmed Problem Disorder due to type 2 diabetes mellitus (659199451) Type 2 diabetes mellitus with unspecified complications (E11.8) Active confirmed Vital Signs Heart Rate 76 /min 01/04/2025 Oximetry 96 % 01/04/2025 Blood pressure diastolic 80 mm Hg 01/04/2025 Height 66 in 01/04/2025 Blood pressure systolic 120 mm Hg 01/04/2025 Weight 270 lbs 01/04/2025 BMI 43.57 kg/m2 01/04/2025 Encounters Encounter Location Date Provider Diagnosis [facility] [address] [place] [address] 03/21/2024 LEXI NEWBERRY Type 2 diabetes jessica itus with unspecified complications E11.8 ; Shortness of breath R06.02 ; Hyperlipidemia, unspecified E78.5 ; Essential (primary) hypertension I10 ; Adult general medical exam Z00.00 and Encounter for immunization Z23 [facility] [address] 05/10/2024 MARCELLA HOANG Soft tissue infectio n L08.[address] [facility] [address] [place] [address] 07/04/2024 LEXI NEWBERRY Shortness of breath R06.02 ; Hyperlipidemia, unspecified E78.5 ; Morbid obesity E66.01 ; Body mass index (BMI) 40.0-44.9, adult Z68.41 and Encounter for immunization Z23 [facility] [address] 08/18/2024 LEXI NEWBERRY Annual physical exam Z00.00 ; Lipid screening Z13.220 ; Accelerated essential hypertension I10 ; Encounter for prostate cancer screening Z12.5 and Morbid obesity E66.01 [facility] [address] 10/24/2024 Carlota Svrcek Sore throat J02.9 [facility] [address] 11/24/2024 Carlota Svrcek Type 2 diabetes jessica itus with unspecified complications E11.8 ; Essential (primary) hypertension I10 ; Morbid obesity E66.01 ; Elevated PSA R97.20 ; Erectile dysfunction, unspecified erectile dysfunction type N52.9 ; Other insomnia G47.09 and Mild persistent asthma without complication J45.30 [facility] [address] 01/04/2025 Carlota Svrcek Essential (primary) hypertension I10 ; Type 2 diabetes mellitus with unspecified complications E11.8 ; Morbid obesity E66.01 and Mild persistent asthma without complication J45.30 [facility] [address] 03/21/2024 LEXI NEWBERRY Essential (primary) hypertension I10 [facility] [address] 05/10/2024 TALAL NEWBERRY [facility] [address] [place] [address] 06/27/2024 TALAL NEWBERRY [facility] [address] [place] [address] 07/04/2024 TALAL NEWBERRY Type 2 diabetes jessica itus with unspecified complications E11.[address] [facility] [address] [place] [address] 07/21/2024 ROSALINA AKINS [facility] [address] [place] [address] 08/09/2024 TALAL NEWBERRY [facility] [address] [place] [address] 08/18/2024 TALAL NEWBERRY [facility] [address] [place] [address] 09/02/2024 TALAL NEWBERRY [facility] [address] [place] [address] 09/14/2024 TALAL NEWBERRY [facility] [address] [place] [address] 10/12/2024 TALAL NEWBERRY [facility] [address] [place] [address] 10/24/2024 Carlota Svrcek [facility] [address] [place] [address] 11/22/2024 Carlota Svrcek [facility] [address] [facility] [address] [place] [address] 12/19/2024 Carlota Svrcek Type 2 diabetes jessica itus with unspecified complications E11.8 [facility] [address] [facility] [address] [place] [address] 12/20/2024 Carlota Svrcek Type 2 diabetes jessica itus with unspecified complications E11.8 [facility] [address] [address] 02/13/2025 Carlota Svrcek Assessments Encounter Date Diagnosis [...] Wixela Inhub 100-50 MCG/ACT. Currently sees a ship design teacher. Will follow with ship design teacher. # Obstructive Sleep Apnea: Stable. States wearing [...] contact the office and be reevaluated. 07/04/2024 Type 2 diabetes mellitus with unspecified complications (ICD-10 - E11.8) 03/21/2024 Type 2 diabetes mellitus with unspecified [...] 03/21/2024 Essential (primary) hypertension (ICD-10 - I10) 08/18/2024 Annual physical exam (ICD-10 - Z00.00) [...] log exercise and discussed fitness Apps like [employer] which can help keep log off calories [...] and hemoglobin A1c testing might be appropriate. 10/24/2024 Sore throat (ICD-10 - J02.9) #Pharyngitis. [...] Dictation was accomplished with the use of [employer] voice recognition software, prone to medical misidentifications [...] Dictation was accomplished with the use of [employer] voice recognition software, prone to medical misidentifications [...] next visit it any questions/concerns arise. 11/24/2024 Essential (primary) hypertension (ICD-10 - [...] Dictation was accomplished with the use of [employer] voice recognition software, prone to medical misidentifications [...] Dictation was accomplished with the use of [employer] voice recognition software, prone to medical misidentifications [...] Dictation was accomplished with the use of [employer] voice recognition software, prone to medical misidentifications [...] log exercise and discussed fitness Apps like [employer] which can help keep log off calories [...] and hemoglobin A1c testing might be appropriate. 01/04/2025 Morbid obesity (ICD-10 - E66.01) #Type [...] Dictation was accomplished with the use of [employer] voice recognition software, prone to medical misidentifications [...] Dictation was accomplished with the use of [employer] voice recognition software, prone to medical misidentifications [...] next visit it any questions/concerns arise. 03/21/2024 Hyperlipidemia, unspecified (ICD-10 - E78.5) 58-year-old [...] Wixela Inhub 100-50 MCG/ACT. Currently sees a ship design teacher. Will follow with ship design teacher. # Obstructive Sleep Apnea: Stable. States wearing [...] contact the office and be reevaluated. 07/04/2024 Morbid obesity (ICD-10 - E66.01) Pearl [...] Wixela Inhub 100-50 MCG/ACT. Currently sees a ship design teacher. Will follow with ship design teacher. # Obstructive Sleep Apnea: Stable. States wearing [...] Dictation was accomplished with the use of [employer] voice recognition software, prone to medical misidentifications [...] log exercise and discussed fitness Apps like [employer] which can help keep log off calories [...] and hemoglobin A1c testing might be appropriate. 01/04/2025 Mild persistent asthma without complication (ICD-10 [...] Dictation was accomplished with the use of [employer] voice recognition software, prone to medical misidentifications [...] log exercise and discussed fitness Apps like [employer] which can help keep log off calories [...] hemoglobin A1c testing might be appropriate. 11/24/2024 Erectile dysfunction, unspecified erectile dysfunction type [...] Dictation was accomplished with the use of [employer] voice recognition software, prone to medical misidentifications [...] next visit it any questions/concerns arise. 07/04/2024 Body mass index (BMI) 40.0-44.9, adult [...] Wixela Inhub 100-50 MCG/ACT. Currently sees a ship design teacher. Will follow with ship design teacher. # Obstructive Sleep Apnea: Stable. States wearing [...] contact the office and be reevaluated. 08/18/2024 Morbid obesity (ICD-10 - E66.01) Patient [...] log exercise and discussed fitness Apps like [employer] which can help keep log off calories [...] Wixela Inhub 100-50 MCG/ACT. Currently sees a ship design teacher. Will follow with ship design teacher. # Obstructive Sleep Apnea: Stable. States wearing [...] call sooner if new symptoms arise. 11/24/2024 Other insomnia (ICD-10 - G47.09) #Type [...] Dictation was accomplished with the use of [employer] voice recognition software, prone to medical misidentifications [...] Dictation was accomplished with the use of [employer] voice recognition software, prone to medical misidentifications [...] 08/31/2018 APTT 09/11/2020 CBC (COMPLETE BLOOD COUNT) 09/11/2020 CBC (COMPLETE BLOOD COUNT) 08/31/2018 CBC (COMPLETE BLOOD COUNT) 06/29/2018 CBC (COMPLETE BLOOD COUNT) 12/17/2020 CBC (COMPLETE BLOOD COUNT) 07/01/2022 COMPREHENSIVE METABOLIC PANEL 12/17/2020 COMPREHENSIVE METABOLIC PANEL 06/29/2018 COMPREHENSIVE METABOLIC PANEL 08/31/2018 COMPREHENSIVE METABOLIC PANEL 09/11/2020 CRP, HIGH SENSITIVITY 08/31/2018 HEMOGLOBIN A1C 06/29/2018 HEMOGLOBIN A1C 08/31/2018 HEMOGLOBIN A1C 12/17/2020 INSULIN 08/31/2018 LIPID PANEL 06/29/2018 LIPID PANEL 08/31/2018 LIPID PANEL 12/17/2020 PSA, SCREEN 08/31/2018 PSA, SCREEN 06/29/2018 TESTOSTERONE, FREE AND TOTAL (MALES >15 YRS OLD) 08/31/2018 TSH WITH REFLEX TO FT4 06/29/2018 URINALYSIS, COMPLETE 06/29/2018 URINALYSIS, COMPLETE 08/31/2018 URINALYSIS, COMPLETE 12/17/2020 HIV 1 & 2 Ab 09/11/2020 MRI L-Spine w/o Contrast 10/21/2022 UC XR C-Spine 2-3 Views 05/02/2019 XR Knee 3 Views LT 01/09/2022 PT/INR 09/11/2020 UA WITH CULTURE IF INDICATED 08/18/2024 LIPID PANEL, STANDARD 08/18/2024 LIPID PANEL, STANDARD 03/31/2022 LIPID PANEL, STANDARD 06/06/2021 LIPID PANEL, STANDARD 10/19/2023 LIPID PANEL, STANDARD 09/01/2022 LIPID PANEL, STANDARD 03/21/2024 LIPID PANEL, STANDARD 01/26/2023 COMPREHENSIVE METABOLIC PANEL 09/01/2022 COMPREHENSIVE METABOLIC PANEL 01/26/2023 COMPREHENSIVE METABOLIC PANEL 03/31/2022 COMPREHENSIVE METABOLIC PANEL 03/21/2024 COMPREHENSIVE METABOLIC PANEL 10/19/2023 COMPREHENSIVE METABOLIC PANEL 08/18/2024 CBC (INCLUDES DIFF/PLT) 08/18/2024 CBC (INCLUDES DIFF/PLT) 10/19/2023 CBC (INCLUDES DIFF/PLT) 03/21/2024 CBC (INCLUDES DIFF/PLT) 03/31/2022 CBC (INCLUDES DIFF/PLT) 01/26/2023 CBC (INCLUDES DIFF/PLT) 09/01/2022 URINALYSIS, COMPLETE 09/01/2022 URINALYSIS, COMPLETE 01/26/2023 URINALYSIS, COMPLETE 03/31/2022 URINALYSIS, COMPLETE 10/19/2023 URINALYSIS, COMPLETE W/REFLEX TO CULTURE 07/01/2022 HEMOGLOBIN A1c 01/26/2023 HEMOGLOBIN A1c 06/06/2021 PSA (FREE AND TOTAL) 08/18/2024 PSA, TOTAL 03/31/2022 HEPATITIS B ANTIBODY, QUANT 09/11/2020 HEPATITIS A ANTIBODY TOTAL 09/11/2020 US Duplex Venous Study Bilat 09/11/2020 PPC Hemoglobin A1C 01/04/2025 Future Test Test Name Order Date COMPLETE URINALYSIS 09/22/2020 Next Appt Details Provider Name:Carlota Guaman, 0 03/07/2025 03:00:00 PM, [address] [facility] [address], [place], [address], Insurance Providers Payer Name Payer Address Payer Phone Subscriber Number Group Number Insured Name Patient Relationship to Insured Coverage Start Date Coverage End Date [facility] [address] [place] [address] [phone] [id number] PEARL AGUILAR Self - patient is the [...]
== END 2025-03-02 08:15 | disposition home or self-care (01) ==
LOC: HO.HUSH 07:33
PROVIDERS: PCP Internal Medicine; Visit Provider Nurse Practitioner Family
DX: R97.20 Elevated prostate specific antigen [PSA] (principal)
CPT/HCPCS: 99214

== ENCOUNTER 2025-04-13 07:42 | Outpatient (REF) | payer BC, SELFPAY ==
--- OUTSIDE RECORDS SUMMARY | 2025-04-12 23:59 | XMS_ITS | Continuity of Care Document ---
Author Organization [facility] Cardiac [facility] Address [address] [place] [address] [place] [address]- Care Team Providers Care Linen Grader Name Role Phone Coni ARREGUIN, Kandi Vallecillo Primary Care Physician [phone] Encounter [facility] Date(s): 04/05/25 - 04/12/25 [facility] Cardiac Surgery [address] [place] [address] Drive [address] [place], [place] [address] Attending Physician: Mimi Licona MD Referring Physician: Kandi Newberry MD Encounter Type: Office Visit Allergies, Adverse Reactions, Alerts Substance Criticality Severity Reaction Reaction Severity Status Zosyn 1 Unable to assess criticality Persistent Moderate Resolved Bee Stings facial selling Acti ve 1dry heaving, nausea Immunizations Given and Recorded Vaccine Date Status Refusal Reason Tetanus Toxoid 12/11/00 Given Medications Albuterol 1-2 puffs, Inhalation, PRN Dyspnea, 0 Refills, Maintenance, 11/11/10 4:03:08 PM EDT Start Date: 11/11/10 Status: Ordered Medication Dispense Status: Completed Total Allowed Fills: 1 Fills Dispensed: 0 Flomax 0.4 mg oral capsule 1 capsule = 0.4 mg, By Mouth, Daily, # 10 capsule, 0 Refills, Maintenance, 12/21/11 7:00:43 AM EDT, Capsule Start Date: 12/21/11 Stop Date: 12/31/11 Status: Ordered Medication Dispense Status: Completed Quantity: 10.0 Unit: capsule Total Allowed Fills: 1 Fills Dispensed: 0 furosemide 40 mg oral tablet 40 mg, 1, tablet, By Mouth, Daily, Refills 0, Maintenance, 07/04/19 8:38:00 AM EST Start Date: 07/04/19 Status: Ordered Medication Dispense Status: Completed Total Allowed Fills: 1 Fills Dispensed: 0 losartan 50 mg oral tablet 50 mg, 1, tablet, By Mouth, Daily, Refills 0, Maintenance, 08/21/21 3:33:00 PM EST, Partial fill upon patient request if the prescription is for a schedule II opioid drug. Start Date: 08/21/21 Status: Ordered Medication Dispense Status: Completed Total Allowed Fills: 1 Fills Dispensed: 0 metoprolol 25 mg oral tablet 25 mg, 1, tablet, By Mouth, 2 times a day, Refills 0, Maintenance, 11/20/22 10:20:00 AM EDT, Partialfill upon patient request if the prescription is for a schedule II opioid drug. Start Date: 11/20/22 Status: Ordered Medication Dispense Status: Completed Total Allowed Fills: 1 Fills Dispensed: 0 Mounjaro 10 mg/0.5 mL subcutaneous solution = 10 mg, Subcutaneous Injection, Every week, rotate injection sites, # 2 mL, 0 Refills, Maintenance, 04/05/25 10:25:00 AM EDT, Solution, Partial fill upon patient request if the prescription is for a schedule II opioid drug. Start Date: 04/05/25 Status: Ordered Medication Dispense Status: Completed Quantity: 2.0 Unit: mL Total Allowed Fills: 1 Fills Dispensed: 0 zolpidem 5 mg oral tablet See Instructions, PRN as needed for insomnia, 1 tablet By Mouth Daily at bedtime, 0 Refills, Maintenance, 02/19/22 3:25:00 PM EDT, Partial fill upon patient request if the prescription is for a schedule II opioid drug. Start Date: 02/19/22 Status: Ordered Medication Dispense Status: Completed Total Allowed Fills: 1 Fills Dispensed: 0 Problem List Condition Confirmation Course Effective Dates [...] region (C5-6 and C7) Confirmed 05/04/19 Active Vital Signs Most recent to oldest [Reference Range]: 1 Height 168 cm (04/05/25 10:24 AM) Weight 120.4 kg (04/05/25 10:24 AM) Oxygen Saturation [94-100 %] 95 % (04/05/25 10:24 AM) Pulse Rate [55-90 bpm] 102 bpm *H* (04/05/25 10:24 AM) Body Mass Index [18.5-24.99 kg/m2] 42.66 kg/m2 *>HHI* (04/05/25 10:24 AM) Blood Pressure [90-138/55-84 mm Hg] 124/ 82mm Hg (04/05/25 10:24 AM) Respiratory Rate [16-30 br/min] 15 br/mi n *L* (04/05/25 10:24 AM) Temperature [96.8-100.4 DegF] 97 DegF (04/05/25 10:24 AM) Mode of Delivery (Oxygen) Room air (04/05/25 10:24 AM) Blood pressure sites Arm, left (04/05/25 10:24 AM) Temperature Route Oral (04/05/25 10:24 AM) Weight Obtained Via Standing scale (04/05/25 10:24 AM) Social History Social History Type Response Smoking Status Former smoker, quit more than 30 days ago entered on: 08/12/24 Sex Sex Representation Male (finding) Cardiac surgery Outpatient Note * Monae ARREGUIN, Mimi Koehler: MODIFY, PERFORM, MODIFY Event Display: Cardiac Surgery Note Office Authored Date: [id number] Patient: ??PEARL AGUILAR ? Age:??59 Years?Sex:??Male?:??1965?? History of Present Illness/Interval History Primary Communication Assistant:??Michael Blount MD (for HTN) Consult Reason: Ascending thoracic aortic aneurysm IC: n/a [employer] Saw Operator: Melissa, Dr. Simon Painter; Mass Gen: Rayo Perera MD (for right hemidiaphragm paralysis secondary to cervical disk compression) PCP: Francisco Newberry MD ?? 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 He's had follow up CT scans and was sent for cardiac surgery opinion. ?? No known family history of aneurysm or dissection. No known connective tissue disorder. ?? During his initial consultation, he was??limited in his mobility given longstanding shortness of breath which he finally was diagnosed with a hemidiaphragmatic paralysis, subsequently treated with surgical nerve implant via the??anterior neck approach. His breathing troubles have further complicated his quest to lose weight, and he remains at 125 kg, with truncal obesity.?? He also has severe OSAon iVAPS with Astral. ?? He is actively trying to lose weight??switched from??Ozempic to Monjero.?? Says he is limited his??food intake but he is really struggling with losing weight.?? I advised him to seek out a creative services manager.?? Also he says that at the end of the day??he is too tired to??work out. ??I encouraged him to try??exercise first thing in the morning when he wakes up.?? His agreed and offered to exercise with him. ??They both wake up fairly early and this would work out for him. ? Imaging reviewed and personally interpreted by me: CTA chest 2018: Maximal ascending aorta: [address] chest 2020: 5.3 (AP), 4.[address] chest, noncontrast 02/24/2022 done at [facility]: 5.5 cm (AP), 4.7 cm (width) CTA chest 05/13/2022: Sinus of Valsalva: 3.9 x 3.9 x 3.8 cm.Sinotubular junction: 4.1 x 3.8 cm.Maximum ascending aorta: 5.0 x 4.9 cm.Mid arch: 3.2 x 3.1 cm.Proximal descending aorta: 2.8 x 2.8 cm.Mid descending aorta: 2.7 x 2.6 cm.Distal descending aorta: 2.[address] chest 11/24/2022: TAA 5.0 cm (although reported as 4.7cm); the A/P diameter is 5.0 in axial view per my reading CTA chest 12/05/2023: Sinuses of Valsalva: 4.1 x 3.8 cm, Sinotubular junction: 3.5 x 3.6 cm, Maximumascending aorta: 4.9 x 4.8 cm, previously 4.8 x 4.7, Mid aortic arch: 3.3 x 3.1 cm, Descending aorta (max): 2.[address] without contrast, 02/07/2025: Maximum ascending aorta: 4.7 x 4.9 cm ?? ECHO on 04/15/20[facility] at [facility]: LVEF 55%, tri-leaflet aortic valve, no AI.?? Trace MR. Review of Systems Cardiac: Symptoms of congestion: No Symptomatic hypotension: No Symptoms of ischemia: no Constitutional:?? Recent infection: No; no fever, no chills Unintentional weight loss/cachexia: No Respiratory: Symptomatic primary lung disease: No; No cough, No shortness of breath? All other systems are negative unless noted above. Physical Exam Temperature?97 ?(10:24) Systolic Blood Pressure?124 ?(10:24) Diastolic Blood Pressure?82 ?(10:24) Pulse?102 ?(10:24) SpO2?95 ?(10:24) Respiratory Rate?15 ?(10:24) ?? No acute distress Abdominal obesity Assessment/Plan ASCENDING THORACIC AORTIC ANEURYSM, 4.7-4.9 cm stable Hypothyroidism Diaphragmatic paralysis, right Abdominal obesity Obstructive sleep apnea Chronic back pain Spina bifida Status post??parathyroidectomy ?? Greater than 50% spent counseling/coordinating care of the patient regarding??Mr. Aguilar's??aneurysm of the ascending aorta. ??I reviewed??his recent imaging studies at length. ??We spoke about the implications and natural history of enlargement of the ascending aorta. ??We discussed our thresholdof concern based on aortic valve morphology, of 5.5 cm for a normal valve and for a bicuspid valve,5.0 cm in a low risk patient (based on updated 2021 ACC/AHA guidelines) at which point the annual risk of an acute event such as aortic dissection begins to climb above the risk of surgical intervention. ? The diameter of??his aorta measures at 4.9-5cm, and this??is just at barely??below this threshold. ??In fact,??he has had serial studies since 2018 that have demonstrated some change albeit not consistent with a rapid growth.? We discussed preventative strategies including careful blood pressure and lipid management. ??We discussed the potential advantages of home blood pressure monitoring and maintaining a log for??his family physician, as well as, alerting them to changing trends. ??Fortunately??he is not a smoker. ??We additionally discussed a concerted effort to minimizing lifting greater than 30-50 pounds for sustained periods. ??Finally, we discussed the advantages of ongoing surveillance by CT imaging.? I offered replacement of his ascending aorta.?? I think he is still uncomfortable with surgery at this time.?? His blood pressure is under control and he is trying hard to lose weight.?? I think it is reasonable to wait as long as he follows the above recommendations which we discussed. ?? He??seemed comfortable with our discussion of all of these issues and I believe had??their questions answered. ?? PLAN: CT chest??with contrast??in one year Refer to??creative services manager for??weight management Encouraged??commissioning agent exercise regimen ?Mimi Licona MD ?[facility] Cardiac Surgery?[address], [address] ?[place] [address] ?Pager: [phone] ?Office: [phone] ? Allergies Bee Stings??facial selling Home Medications Albuterol, 1-2 puffs, Inhalation, PRN Furosemide(furosemide 40 mg oral tablet), 40 mg= 1 tablet, By Mouth, Daily Losartan(losartan 50 mg oral tablet), 50 mg= 1 tablet, By Mouth, Daily Metoprolol(metoprolol 25 mg oral tablet), 25 mg= 1 tablet, By Mouth, 2 times a day semaglutide(Ozempic 2 mg/3 mL (0.25 mg or 0.5 mg dose) subcutaneous solution) Tamsulosin(Flomax 0.4 mg oral capsule), 0.4 mg= 1 capsule, By Mouth, Daily Zolpidem(zolpidem 5 mg oral tablet), See Instructions, PRN Diagnostic Impression CT CT Angio Abdomen and Pelvis ?? 11:58:38 IMPRESSION: * Aneurysm of the ascending aorta measuring 5.0 cm (prior 4.7 cm). * No acute abnormality identified in the chest, abdomen or pelvis. ? WSN: [id number] ? Ordering Physician: Mimi Licona ?? Signed By: Maurice Malik MD ECG ECG 12-Lead ?? 20:17:44 Ventricular Rate: 105 BPM Atrial Rate: 105 BPM P-R Interval: 158 ms QRS Duration: 110 ms Q-T Interval: 324 ms QTC Calculation(Bazett): 428 ms P [place]: 18 degrees R [place]: 2 degrees T [place]: 47 degrees Sinus tachycardia Otherwise normal ECG When compared with ECG of 15-MAR-2012 13:52, Non-specific change in ST segment in Anterior leads Confirmed ?? Signed By: Pearl Guerrero DO ?? ECG 12-Lead ?? 20:17:44 Please click on pdf link to open report ?? Signed By: Pearl Guerrero DO Problem List/Past Medical History Ongoing Asthma Congenital fusion of thoracic spine CONSTIPATION Diaphragm paralysis, 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 Former light cigarette smoker (1-9 per day; 1/4 ppd x 20 yrs; 5 pyh quit 2009) History of parathyroidectomy Hypothyroidism Hypoventilation Narrowing of C3-4 intervertebral disc space Nocturnal hypoxemia Obesity JOSIE (obstructive sleep apnea) Severe obesity Spina bifida, cervical region (C5-6 and C7) Procedure/Surgical History Comprehensive eye examination: 06/19/05 Social History Alcohol Use:Current Frequency:Daily Type:Liquor Average drinks per episode in last year:2 Tobacco Use:Former smoker, quit more than 30 days ago Family History No family history recorded. Note * Alba Elias: PERFORM Event Display: Patient Education/Instruction Authored Date: Ambulatory Adult Visit Summary [facility] Cardiac Surgery [facility] Cardiac Surgery [address] [place] [address] [place] [address] Name: PEARL AGUILAR : 1965?? Visit: 04/05/2025 09:55?? Ambulatory Visit Instructions ?? Your Care Team Primary Care Provider Coni ARREGUIN, Kandi Vallecillo? This Visit Provider Monae ARREGUIN, Mimi Koehler Vitals Signs Temperature: 97 DegF Height: 168 cm Pulse Rate:??102 bpm??High Weight: 120.4 kg Respiratory Rate:??15 br/min??Low Body Mass Index:??42.66 kg/m2??Critical Systolic Blood Pressure: 124 mm Hg Body surface area: 2.37 Diastolic Blood Pressure: 82 mm Hg ?? Oxygen Saturation: 95 % ?? Medications The list below reflects the information in our records and provided by you today along with any changes made during this visit. Please continue your medications until treatment is completed or stopped by your provider. If this is different from the information you have or there are other questions,please contact the prescribing provider. What How Much When Instructions Unchanged Albuterol 1-2 puffs Inhalation As needed for Dyspnea Unchanged Furosemide (furosemide 40 mg oral tablet) 1 tab(s) Oral Daily Unchanged Losartan (losartan 50 mg oral tablet) 1 tab(s) Oral Daily Unchanged Metoprolol (metoprolol 25 mg oral tablet) 1 tab(s) Oral Twice a day Unchanged Tamsulosin (Flomax 0.4 mg oral capsule) 1 capsule Oral Daily Duration: 10 Days Ordering Physician: Daxa Quan MD Unchanged tirzepatide (Mounjaro 10 mg/ 0.5 mL subcutaneous solution) 10 Milligram Subcutaneous Injection Every week Special Instructions: rotate injection sites ?? Unchanged Zolpidem (zolpidem 5 mg oral tablet) See instructions Special Instructions: 1 tablet By Mouth Daily at bedtime, As needed for as needed for insomnia ?? Medications and Immunizations Administered Medications Given During Visit No medications given during this visit.?? Allergies (NKA means No Known Allergies) Bee Stings??facial selling Common Emergency Awareness Tips IS IT A STROKE? Act FAST and Check for these signs: FACE Does the face look uneven? ARM Does one arm drift down? SPEECH Does their speech sound strange? TIME Call at any sign of stroke ?? Heart Attack Signs Chest discomfort: Most heart attacks involve discomfort in the center of the chest and lasts more than a few minutes, or goes away and comes back. It can feel like uncomfortable pressure, squeezing, fullness or pain. Discomfort in upper body: Symptoms can include pain or discomfort in one or both arms, back, neck, jaw or stomach. Shortness of breath: With or without discomfort. Other signs: Breaking out in a cold sweat, nausea, or lightheaded. Remember, MINUTES DO MATTER. If you experience any of these heart attack warning signs, call to get immediate medical attention! ?? Smoking can increase your chances of developing chronic health problems and can cause harmful effects to other family members in your house. If you smoke, you are strongly encouraged to quit. Please call [email or web address] Link at [phone] or 2-688-[employer]46[employer] (7656) or log in to [email or web address] for referrals to smoking cessation programs. ?? The National Suicide Prevention Hotline is available 02/03 if you or someone you know needs to find a reason to keep living. By calling 9-073-631-[employer] (2935) you'll be connected to a skilled, trained counselor at a crisis center in your area. [facility] Portal You can view and manage your care through the patient portal or by using a health care nicole of your choosing. [employer] is a website that allows you to securely view your medical information including your hospital discharge summary, office visit summaries, medications and follow-up visits. You can also request appointments, renew medications, and request access to your medical information using a health care nicole of your choosing, or just ask a question. You can enroll at [email or web address] or register during your next office visit. [facility], in keeping with [facility] guidance, no longer requires face masks for staff, patientsor visitors in most situations. Similiar to time spent indoors at other locations, there is the chance that you were exposed to repiratory viruses during your time with us (such as flu or COVID-19). If you develop symptoms concerning for a viral respiratory infection, please seek testing (and treatment if indicated) from your medical provider or home test kit. ?? Disclaimer: The information provided is of a general nature and is intended to be used in conjunction with the recommendations and advice of your health care practitioner. Every effort has been made to ensure that the information provided is accurate and complete at the time it is provided to you however, as your needs change, or, as new information becomes available, different or additional instructions may be required. ?? If you have questions, please consult with your primary care provider or pharmacist, as appropriate. This information is not intended to serve as substitution for assessment and evaluation by a qualified health care provider. If you do not have a primary care provider, you may find a [facility] provider by calling [facility] [email or web address] Link at [phone]. Patient Care team information Care Team Personnel Name: Kandi Newberry MD Position: [facility] Physician - Primary Care Member Role: PCP Address: [address] [place] [address], [address] Primary Care and Weight Management [address] Telecom: Care Team Related Persons Name: JINNY ONTIVEROS Name: ADALI AGUILAR Name: ASIF MORROW Insurance Providers Guarantor name: PEARL AGUILAR Health Plan Information #: 1 Payer: [employer] CROSS PPO Payer Identifier: NA Member Number: [id number] Group Number: [id number] Subscriber Identifier: [id number] Relationship to Subscriber: self Coverage Type: NA Coverage Verification Date: NA Telecom: NA Address: NA
--- OUTSIDE RECORDS SUMMARY | 2025-04-13 07:46 | XMS_ITS | Patient Health Record ---
Author Organization [facility] [address] Address [address] [place] [address] Care Team Providers Care Board Finisher Name Role Phone Carlota Guaman Unavailable [phone] LEXI NEWBERRY Unavailable [phone] AKINSROSALINA WILKINS Unavailable [phone] BRADLEYMARCELLA BAIRES Unavailable [phone] Allergies No Known Allergies Results Component Value Reference Range Notes UA+Urine Culture Reviewed date:12/01/2024 11:52:16 AM Interpretation: Performing Lab:[facility], [facility], Phone - [phone], Director - Shannon Notes/Report: Clinical Information:SRC:UC Clinical Information:SRC:UC Specific Shelton 1.011 1.005-1.030 pH 6.0 5.0-7.5 Urine-Color Yellow [...] 09:20:22 AM Interpretation: Performing Lab:[facility], [address] [facility], [place], Phone - [phone], Director - Shannon Notes/Report: Clinical Information:SRC:UC Specific Shelton TNP Test not performed. Patient was unable to provide a self-collected specimen for the requested testing. The following test(s) were not performed: pH TNP Test not perfor med Protein TNP Test not perfor med Glucose TNP Test not perfor med Ketones TNP Test not perfor med Urine Culture, Routine TNP Test not performed P[facility] Hemoglobin A1C Reviewed date:03/07/2025 03:06:06 PM Interpretation:5.2 Performing Lab: Notes/Report: 5.2 HGA1C 5.2 PSA Total+% Free-[id number] Reviewed date:12/07/2024 08:44:14 AM Interpretation: Performing Lab:[facility] [place], [address], [place], Phone - [phone], Director - Shannon Notes/Report: Clinical Information:SRC:UC Prostate Specific Ag 6.1 0.0-4.0 ng/mL Neri ECLIA methodology. . According to the [employer] [employer], Serum PSA should decrease and [...] The following test(s) were not performed: TEST: [id number] UA+Urine Culture Comp. Metabolic Panel (14)-3 Reviewed date:12/02/2024 09:20:44 AM Interpretation: Performing Lab:[facility], [address] [facility], Phone - [phone], Director - Shannon Notes/Report: Clinical Information:SRC:UC Glucose 105 70-99 mg/dL [...] IU/L ALT (SGPT) 27 0-44 IU/L Lipid Panel-[id number] Reviewed date:12/02/2024 09:20:33 AM Interpretation: Performing Lab:[facility] Murillo, [address] [facility], Phone - [phone], Director - Shannon Notes/Report: Clinical Information:SRC:UC Cholesterol, Total 205 100-199 mg/dL Triglycerides 87 0-149 mg/dL HDL Cholesterol 64 >39 mg/dL VLDL Cholesterol Kosta 16 5-40 mg/dL LDL Chol Calc ([facility]) 125 0-99 mg/dL CBC With Differential/Platel et-[id number] Reviewed date:12/02/2024 09:20:12 AM Interpretation: Performing Lab:[facility], [address] [facility], [place], Phone - [phone], Director - Shannon Notes/Report: Clinical Information:SRC:UC WBC [...] For Referral Diagnosis 1 Colon cancer screeni (Z12.11) Referral Organization [facility] [address] Referring Provider First Name LEXI Referring Provider Last Name NILAM Referring Provider Speciality Internal M edicine Referred Provider Specialty Gastroentero logy General Notes faxed to garcia YARBROUGH, [address] [place] [address] [id number], [phone], [phone], Neptali Riddle 08/18/2024 11:22:55 AM > Clinical Notes Stef Hernandez 12/2024 01:39:29 PM > [phone] phone, Stef Hernandez 09/14/2024 01:43:11 PM > I called the office, and they informed me that the patient is not due for a colonoscopy until July 2025. I relayed this information to the patient and provided the office phone number in case he wants to schedule a colonoscopy for next year, Modesta Oakley 04/04/2025 03:50:05 PM > I called the office and they already tried calling but no answer from the patient. Referral Priority Routine Medications Medication SIG (Take, Route, Frequency, Duration) Notes Start Date End Date Status Furosemide 40 MG 1 tablet Orally Once a day; Duration: 90 days Active Losartan Potassium 50 MG TAKE 1 TABLET BY MOUTH DAILY; Duration: 90 days Active Metoprolol Succinate ER 25 MG TAKE 1 TABLET BY MOUTH EVERY DAY; Duration: 90 days Active Mounjaro 10 MG/0.5ML 0.5ML Subcutaneous once weekly; Duration: 30 days replaces ozempic Active Albuterol Sulfate HFA 108 (90 Base) MCG/ACT 2 puff as needed Inhalation every 4 hrs; Duration: 30 days 03/07/2025 Active Cialis 20 MG 1 tablet as needed Orally Once a day as needed; Duration: 90 days 11/25/2021 Active Wixela Inhub 100-50 MCG/ACT INHALE 1 PUFF BY MOUTH TWICE DAILY; Duration: 90 days Active Zolpidem Tartrate 5 MG TAKE 1 TABLET BY MOUTH AT BEDTIME NEEDED.; Duration: 90 02/28/2025 Active Immunizations Vaccine Route Administration Date Status [...] Risk Notes Problem Low back pain (finding) (614305459) Lumbar back pain (M54.50) Active confirmed Problem Lipid screening (306777955) Lipid screening (Z13.220) Active confirmed Problem Screening for malignant neoplasm of prostate (005984662) Encounter for prostate cancer screening (Z12.5) Active confirmed Problem Morbid obesity (131111966) Obesity, Class III, BMI 40-49.9 (morbid obesity) (E66.01) Active confirmed Problem Uncomplicated mild persistent asthma (821637359) Mild persistent asthma without complication (J45.30) Active confirmed Problem Renal stone (28046054) Renal stone (N20.0) Active confirmed Problem Erectile dysfunction (disorder) (436903379) Erectile dysfunction, unspecified erectile dysfunction type (N52.9) Active confirmed Problem Accelerated essentia l hypertension (15093247) Accelerated essential hypertension (I10) Active confirmed Problem Elevated PSA (735413223) Elevated PSA (R97.20) Active confirmed Problem Annual health maintenance examination (57151682) Annual physical exam (Z00.00) Active confirmed Problem Adult health examination (481813681) Adult general medical exam (Z00.00) Active confirmed Problem Hyperlipoproteinemia (1325509) Acquired hyperlipoproteinemia (E78.5) Active confirmed Problem Morbid obesity (849545957) Morbid obesity (E66.01) Active confirmed Problem Adult health examination (090924835) Encounter for general adult medical examination without abnormal findings (Z00.00) Active confirmed Problem Exacerbation of asthma (463875835) Unspecified asthma with (acute) exacerbation (J45.901) Active confirmed Problem Aortic aneurysm (95206040) Aortic aneurysm of unspecified site, without rupture (I71.9) Active confirmed Problem Insomnia (180645371) Other insom haley (G47.09) Active confirmed Problem Aneurysm (49167677) Aneurysm (I72.9) Active con firmed Problem Body mass index 40+ - severely obese (653483455) Body mass index (BMI) 40.0-44.9, adult (Z68.41) Active confirmed Problem Essential hypertension (85446526) Essential (primary) hypertension (I10) Active confirmed Problem Hyperlipidemia (12242148) Hyperlipidemia, unspecified (E78.5) Active confirmed Problem Hyperlipidaemia (66229901) Hyperlipidemia, unspecified hyperlipidemia type (E78.5) Active confirmed Problem Chronic pain (14662918) Other chronic pain (G89.29) Active confirmed Problem Disorder due to type 2 diabetes mellitus (307279602) Type 2 diabetes mellitus with unspecified complications (E11.8) Active confirmed Vital Signs Heart Rate 81 /min 03/07/2025 Oximetry 98 % 03/07/2025 Blood pressure diastolic 80 mm Hg 03/07/2025 Height 66 in 03/07/2025 Blood pressure systolic 136 mm Hg 03/07/2025 Weight 269.8 lbs 03/07/2025 BMI 43.54 kg/m2 03/07/2025 Encounters Encounter Location Date Provider Diagnosis [facility] [address] [facility] [address] [place] [address] 05/10/2024 MARCELLA HOANG Soft tissue infectio n L08.[address] [facility] [address] [place] [address] 07/04/2024 LEXI NEWBERRY Shortness of breath R06.02 ; Hyperlipidemia, unspecified E78.5 ; Morbid obesity E66.01 ; Body mass index (BMI) 40.0-44.9, adult Z68.41 and Encounter for immunization Z23 [facility] [address] [address] 08/18/2024 LEXI NEWBERRY Annual physical exam Z00.00 ; Lipid screening Z13.220 ; Accelerated essential hypertension I10 ; Encounter for prostate cancer screening Z12.5 and Morbid obesity E66.01 [facility] [address] [address] 10/24/2024 Carlota Svrcek Sore throat J02.9 [facility] [address] [address] 11/24/2024 Carlota Svrcek Type 2 diabetes jessica itus with unspecified complications E11.8 ; Essential (primary) hypertension I10 ; Morbid obesity E66.01 ; Elevated PSA R97.20 ; Erectile dysfunction, unspecified erectile dysfunction type N52.9 ; Other insomnia G47.09 and Mild persistent asthma without complication J45.30 [facility] [address] [address] 01/04/2025 Carlota Svrcek Essential (primary) hypertension I10 ; Type 2 diabetes mellitus with unspecified complications E11.8 ; Morbid obesity E66.01 and Mild persistent asthma without complication J45.30 [facility] [address] [address] 03/07/2025 Carlota Svrcek Type 2 diabetes jessica itus with unspecified complications E11.8 ; Elevated PSA R97.20 ; Aortic aneurysm of unspecified site, without rupture I71.9 ; Mild persistent asthma without complication J45.30 and Encounter for examination of blood pressure without abnormal findings Z01.30 [facility] [address] [facility] [address] [place] [address] 05/10/2024 LEXI NEWBERRY [facility] [address] [place] [address] 06/27/2024 LEXI NEWBERRY [facility] [address] [place] [place] [facility] [address] 07/04/2024 TALAL NEWBERRY Type 2 diabetes jessica itus with unspecified complications E11.[address] [facility] [address] [place] [address] 07/21/2024 ROSALINA AKINS [facility] [address] [place] [address] 08/09/2024 TALAL NEWBERRY [facility] [address] [facility] [address] [place] [address] 08/18/2024 TALAL NEWBERRY [facility] [address] [place] [address] 09/02/2024 TALAL NEWBERRY [facility] [address] [place] [address] 09/14/2024 TALAL NEWBERRY [facility] [address] [place] [address] 10/12/2024 TALAL NEWBERRY [facility] [address] [facility] [address] [place] [address] 10/24/2024 Carlota Svrcek [facility] [address] [facility] [address] [place] [address] 11/22/2024 Carlota Svrcek [facility] [address] [address] 12/19/2024 Carlota Svrcek Type 2 diabetes jessica itus with unspecified complications E11.8 [facility] [address] [facility] [address] [place] [address] 12/20/2024 Carlota Svrcek Type 2 diabetes jessica itus with unspecified complications E11.8 [facility] [address] [address] 02/13/2025 Carlota Svrcek Assessments Encounter Date Diagnosis [...] Wixela Inhub 100-50 MCG/ACT. Currently sees a proof coin collector. Will follow with proof coin collector. # Obstructive Sleep Apnea: Stable. States wearing [...] log exercise and discussed fitness Apps like Viblio which can help keep log off calories [...] hemoglobin A1c testing might be appropriate. 01/04/2025 Type 2 diabetes mellitus with unspecified [...] Dictation was accomplished with the use of [employer] voice recognition software, prone to medical misidentifications [...] Dictation was accomplished with the use of [employer] voice recognition software, prone to medical misidentifications and grammatical errors. This is unintentional and the practitioner does try to identify and correct these, but some could still be present. Please do not hesitate to contact practitioner for clarification. All questions answered to patients satisfaction. Patient verbalized understanding of diagnosis and treatments explained. To call sooner prior to next visit it any questions/concerns arise. 03/07/2025 Type 2 diabetes mellitus with unspecified complications (ICD-10 - E11.8) #Type 2 diabetes. Now on Mounjaro. Tolerating it well aside from mild constipation. Discussed bowel regimen. A1c 5.2. He is interested in increasing dose in hopes of benefit of weight management as well. Will trial 10 mg dose and monitor for any further side effects. Continue to monitor blood sugar at home. Encouraged consistent protein intake and regular exercise. Follow-up in 2 to 3 months sooner with any concerns. #Elevated PSA. Following with urology. Currently on antibiotics with plan for repeat PSA in 4 weeks. If PSA remains elevated they will proceed with prostate biopsy. #Aortic aneurysm. Has upcoming appointment with surgeon. Had updated imaging and reports aneurysm has been stable however still within the window for surgical intervention. #Asthma. Symptoms have been well-controlled. Updated albuterol inhaler sent today. Case discussed with collaborating physician Patricia Newberry who reviewed the assessment and plan. Chart, medications, labs, vital signs reviewed. Dictation was accomplished with the use of [employer] voice recognition software, prone to medical misidentifications and grammatical errors. This is unintentional and the practitioner does try to identify and correct these, but some could still be present. Please do not hesitate to contact practitioner for clarification. All questions answered to patients satisfaction. Patient verbalized understanding of diagnosis and treatments explained. To call sooner prior to next visit it any questions/concerns arise. 03/07/2025 Elevated PSA (ICD-10 - R97.20) #Type 2 diabetes. Now on Mounjaro. Tolerating it well aside from mild constipation. Discussed bowel regimen. A1c 5.2. He is interested in increasing dose in hopes of benefit of weight management as well. Will trial 10 mg dose and monitor for any further side effects. Continue to monitor blood sugar at home. Encouraged consistent protein intake and regular exercise. Follow-up in 2 to 3 months sooner with any concerns. #Elevated PSA. Following with urology. Currently on antibiotics with plan for repeat PSA in 4 weeks. If PSA remains elevated they will proceed with prostate biopsy. #Aortic aneurysm. Has upcoming appointment with surgeon. Had updated imaging and reports aneurysm has been stable however still within the window for surgical intervention. #Asthma. Symptoms have been well-controlled. Updated albuterol inhaler sent today. Case discussed with collaborating physician Patricia Newberry who reviewed the assessment and plan. Chart, medications, labs, vital signs reviewed. Dictation was accomplished with the use of [employer] voice recognition software, prone to medical misidentifications and grammatical errors. This is unintentional and the practitioner does try to identify and correct these, but some could still be present. Please do not hesitate to contact practitioner for clarification. All questions answered to patients satisfaction. Patient verbalized understanding of diagnosis and treatments explained. To call sooner prior to next visit it any questions/concerns arise. 12/20/2024 Type 2 diabetes mellitus with unspecified complications (ICD-10 - E11.8) 12/19/2024 Type 2 diabetes mellitus with unspecified complications (ICD-10 - E11.8) 11/24/2024 Type 2 diabetes mellitus with unspecified [...] Dictation was accomplished with the use of [employer] voice recognition software, prone to medical misidentifications [...] Dictation was accomplished with the use of [employer] voice recognition software, prone to medical misidentifications [...] Dictation was accomplished with the use of [place] [employer] voice recognition software, prone to medical misidentifications [...] Dictation was accomplished with the use of [employer] voice recognition software, prone to medical misidentifications and grammatical errors. This is unintentional and the practitioner does try to identify and correct these, but some could still be present. Please do not hesitate to contact practitioner for clarification. All questions answered to patients satisfaction. Patient verbalized understanding of diagnosis and treatments explained. To call sooner prior to next visit it any questions/concerns arise. 03/07/2025 Aortic aneurysm of unspecified site, without rupture (ICD-10 - I71.9) #Type 2 diabetes. Now on Mounjaro. Tolerating it well aside from mild constipation. Discussed bowel regimen. A1c 5.2. He is interested in increasing dose in hopes of benefit of weight management as well. Will trial 10 mg dose and monitor for any further side effects. Continue to monitor blood sugar at home. Encouraged consistent protein intake and regular exercise. Follow-up in 2 to 3 months sooner with any concerns. #Elevated PSA. Following with urology. Currently on antibiotics with plan for repeat PSA in 4 weeks. If PSA remains elevated they will proceed with prostate biopsy. #Aortic aneurysm. Has upcoming appointment with surgeon. Had updated imaging and reports aneurysm has been stable however still within the window for surgical intervention. #Asthma. Symptoms have been well-controlled. Updated albuterol inhaler sent today. Case discussed with collaborating physician Patricia Newberry who reviewed the assessment and plan. Chart, medications, labs, vital signs reviewed. Dictation was accomplished with the use of [employer] voice recognition software, prone to medical misidentifications [...] log exercise and discussed fitness Apps like Viblio which can help keep log off calories [...] Dictation was accomplished with the use of [employer] voice recognition software, prone to medical misidentifications [...] next visit it any questions/concerns arise. 07/04/2024 Hyperlipidemia, unspecified (ICD-10 - E78.5) [...] Wixela Inhub 100-50 MCG/ACT. Currently sees a proof coin collector. Will follow with proof coin collector. # Obstructive Sleep Apnea: Stable. States wearing [...] to contact the office and be reevaluated. 01/04/2025 Mild persistent asthma without complication (ICD-10 [...] Dictation was accomplished with the use of [employer] voice recognition software, prone to medical misidentifications [...] log exercise and discussed fitness Apps like Viblio which can help keep log off calories [...] hemoglobin A1c testing might be appropriate. 07/04/2024 Morbid obesity (ICD-10 - E66.01) Pearl [...] Wixela Inhub 100-50 MCG/ACT. Currently sees a proof coin collector. Will follow with proof coin collector. # Obstructive Sleep Apnea: Stable. States wearing [...] to contact the office and be reevaluated. 03/07/2025 Mild persistent asthma without complication (ICD-10 - J45.30) #Type 2 diabetes. Now on Mounjaro. Tolerating it well aside from mild constipation. Discussed bowel regimen. A1c 5.2. He is interested in increasing dose in hopes of benefit of weight management as well. Will trial 10 mg dose and monitor for any further side effects. Continue to monitor blood sugar at home. Encouraged consistent protein intake and regular exercise. Follow-up in 2 to 3 months sooner with any concerns. #Elevated PSA. Following with urology. Currently on antibiotics with plan for repeat PSA in 4 weeks. If PSA remains elevated they will proceed with prostate biopsy. #Aortic aneurysm. Has upcoming appointment with surgeon. Had updated imaging and reports aneurysm has been stable however still within the window for surgical intervention. #Asthma. Symptoms have been well-controlled. Updated albuterol inhaler sent today. Case discussed with collaborating physician Patricia Newberry who reviewed the assessment and plan. Chart, medications, labs, vital signs reviewed. Dictation was accomplished with the use of [employer] voice recognition software, prone to medical misidentifications [...] next visit it any questions/concerns arise. 11/24/2024 Elevated PSA (ICD-10 - R97.20) [...] Dictation was accomplished with the use of [employer] voice recognition software, prone to medical misidentifications [...] Dictation was accomplished with the use of [employer] voice recognition software, prone to medical misidentifications and grammatical errors. This is unintentional and the practitioner does try to identify and correct these, but some could still be present. Please do not hesitate to contact practitioner for clarification. All questions answered to patients satisfaction. Patient verbalized understanding of diagnosis and treatments explained. To call sooner prior to next visit it any questions/concerns arise. 03/07/2025 Encounter for examination of blood pressure without abnormal findings (ICD-10 - Z01.30) #Type 2 diabetes. Now on Mounjaro. Tolerating it well aside from mild constipation. Discussed bowel regimen. A1c 5.2. He is interested in increasing dose in hopes of benefit of weight management as well. Will trial 10 mg dose and monitor for any further side effects. Continue to monitor blood sugar at home. Encouraged consistent protein intake and regular exercise. Follow-up in 2 to 3 months sooner with any concerns. #Elevated PSA. Following with urology. Currently on antibiotics with plan for repeat PSA in 4 weeks. If PSA remains elevated they will proceed with prostate biopsy. #Aortic aneurysm. Has upcoming appointment with surgeon. Had updated imaging and reports aneurysm has been stable however still within the window for surgical intervention. #Asthma. Symptoms have been well-controlled. Updated albuterol inhaler sent today. Case discussed with collaborating physician Patricia Newberry who reviewed the assessment and plan. Chart, medications, labs, vital signs reviewed. Dictation was accomplished with the use of [employer] voice recognition software, prone to medical misidentifications [...] log exercise and discussed fitness Apps like Viblio which can help keep log off calories [...] Wixela Inhub 100-50 MCG/ACT. Currently sees a proof coin collector. Will follow with proof coin collector. # Obstructive Sleep Apnea: Stable. States wearing [...] Wixela Inhub 100-50 MCG/ACT. Currently sees a proof coin collector. Will follow with proof coin collector. # Obstructive Sleep Apnea: Stable. States wearing [...] log exercise and discussed fitness Apps like Viblio which can help keep log off calories [...] Dictation was accomplished with the use of [place] [employer] voice recognition software, prone to medical misidentifications [...] Dictation was accomplished with the use of [employer] voice recognition software, prone to medical misidentifications and grammatical errors. This is unintentional and the practitioner does try to identify and correct these, but some could still be present. Please do not hesitate to contact practitioner for clarification. All questions answered to patients satisfaction. Patient verbalized understanding of diagnosis and treatments explained. To call sooner prior to next visit it any questions/concerns arise. Plan Of Treatment Pending Test Test Name Order Date Echocardiogram 05/09/2019 Hepatitis C antibody 09/11/2020 Ultrasound : Kidneys and Bladder 020 EKG 08/31/2018 EKG 11/25/2021 EKG 08/31/2018 APTT 09/11/2020 CBC (COMPLETE BLOOD COUNT) 09/11/2020 CBC (COMPLETE BLOOD COUNT) 08/31/2018 CBC (COMPLETE BLOOD COUNT) 06/29/2018 CBC (COMPLETE BLOOD COUNT) 07/01/2022 CBC (COMPLETE BLOOD COUNT) 12/17/2020 COMPREHENSIVE METABOLIC PANEL 12/17/2020 COMPREHENSIVE METABOLIC PANEL 06/29/2018 COMPREHENSIVE METABOLIC PANEL 08/31/2018 COMPREHENSIVE METABOLIC PANEL 09/11/2020 CRP, HIGH SENSITIVITY 08/31/2018 HEMOGLOBIN A1C 08/31/2018 HEMOGLOBIN A1C 06/29/2018 HEMOGLOBIN A1C 12/17/2020 INSULIN 08/31/2018 LIPID PANEL 12/17/2020 LIPID PANEL 06/29/2018 LIPID PANEL 08/31/2018 PSA, SCREEN 06/29/2018 PSA, SCREEN 08/31/2018 TESTOSTERONE, [...] LIPID PANEL, STANDARD 08/18/2024 LIPID PANEL, STANDARD 10/19/2023 LIPID PANEL, STANDARD 03/21/2024 LIPID PANEL, STANDARD 01/26/2023 LIPID PANEL, STANDARD 09/01/2022 LIPID PANEL, STANDARD 03/31/2022 LIPID PANEL, STANDARD 06/06/2021 COMPREHENSIVE METABOLIC PANEL 03/31/2022 COMPREHENSIVE METABOLIC PANEL 09/01/2022 COMPREHENSIVE METABOLIC PANEL 08/18/2024 COMPREHENSIVE METABOLIC PANEL 10/19/2023 COMPREHENSIVE METABOLIC PANEL 01/26/2023 COMPREHENSIVE METABOLIC PANEL 03/21/2024 CBC (INCLUDES DIFF/PLT) 03/21/2024 CBC (INCLUDES DIFF/PLT) 01/26/2023 CBC (INCLUDES DIFF/PLT) 10/19/2023 CBC (INCLUDES DIFF/PLT) 08/18/2024 CBC (INCLUDES DIFF/PLT) 09/01/2022 CBC (INCLUDES DIFF/PLT) 03/31/2022 URINALYSIS, COMPLETE 03/31/2022 URINALYSIS, COMPLETE 01/26/2023 URINALYSIS, COMPLETE 09/01/2022 URINALYSIS, COMPLETE 10/19/2023 URINALYSIS, COMPLETE W/REFLEX TO CULTURE 07/01/2022 HEMOGLOBIN A1c 01/26/2023 HEMOGLOBIN A1c 06/06/2021 PSA (FREE AND TOTAL) 08/18/2024 PSA, TOTAL 03/31/2022 HEPATITIS B ANTIBODY, QUANT 09/11/2020 HEPATITIS A ANTIBODY TOTAL 09/11/2020 US Duplex Venous Study Bilat 09/11/2020 PPC Hemoglobin A1C 01/04/2025 Future Test Test Name Order Date COMPLETE URINALYSIS 09/22/2020 Next Appt Details Provider Name:Carlota Guaman, 1 03:00:00 PM, [address] [facility], [facility] [address], [place], [address], Insurance Providers Payer Name Payer Address Payer Phone Subscriber Number Group Number Insured Name Patient Relationship to Insured Coverage Start Date Coverage End Date [facility] [address] [place] [address] [id number] PEARL AGUILAR Self - patient is the [...]
--- OUTSIDE RECORDS SUMMARY | 2025-04-13 07:46 | XMS_ITS | Clinical Summary ---
Author Organization [facility] [address] [facility] Address [address] [place] [address] Phone Care Team Providers Care Production Machinist Name Role Phone Kandi Newberry MD Primary Care Provider [phone] Allergies Active Allergy Reactions Criticality Noted Date [...] sleep. Max Daily Amount: 5 mg Active Surgical History Surgery Date Site/Laterality Comments LITHOTRIPSY 2010 PROCEDURE: HISTORICAL LITHOTRIPSY PARATHYROIDECTOMY PROCEDURE: HISTORICAL PARATHYROIDECTOMY OTHER SURGICAL HISTORY PROCEDURE: MO LAMOPLASTY CERVICAL DCMPRN CORD 2/> SEG RCNSTJ OTHER SURGICAL HISTORY 2020 PROCEDURE: MO EXC NEUROMA MAJOR PERIPHERAL NRV XCP SCIATIC; [...] 07/12/2022 Hypertension/CHF/CAD Annual BMP Blood Test 07/26/2022 Zoster Vaccines (2 of 3) 05/16/2024 03/21/2024, 07/10 Depression Screening 08/10/2024 RSV Immunization Adult Patients (1 - Risk 60-74 years 1-dose series) 2024 Diabetes: Annual Urine Albumin-Creatinine Ratio (uACR) 12/23/2024 Diabetes: Blood Sugar Control Test (HGBA1C) 12/23/2024 COVID-19 Vaccine ( season) 2025 06/01/2023, 07/16/2021, 12/01/2020, Additional history exists Influenza Vaccine (#1) 2025 07/04/2024 HIB Vaccines [...] on patient's age to complete this topic Insurance [facility] Care Teams Production Machinist Relationship Specialty Start Date End Date Kandi Newberry MD [address] [place] [id number] PCP - General Internal Medicine 12/07/24
--- OUTSIDE RECORDS SUMMARY | 2025-04-13 07:46 | XMS_ITS | Encounter Summary ---
Author Organization [facility] Address [address] [facility] [address] [place] [address] Phone Care Team Providers Care Insurance Office Supervisor Name Role Phone Kandi Newberry MD Primary Care Provider Michael Blount MD Unavailable Will Woodward MD Unavailable [phone] Encounter Details Date Type Department Care Team (Late st Contact Info) Description 02/22/2020 Procedure Pass [facility]PT [address] [place] [address] Social History Tobacco Use Types Packs/Day Years Used Date Smoking Tobacco: Former Cigarettes 0.3 15 0 01/08/1995 - 01/08/2010 Smokeless Tobacco: Never Alcohol Use Standard Drinks/Week Comments Yes 16 (1 standard drink = 0.6 oz pu re alcohol) socially Sex and Gender Information Value Date Recorded Sex Assigned at Male 06/30/2019 12:02 PM EST Legal Sex Male 11:57 AM EST Gender Identity Male 06/30/2019 12:02 PM EST Sexual Orientation Straight 06/30/2019 12 :02 PM EST documented as of this encounter Plan of Treatment Not on file documented as of this encounter Visit Diagnoses Not on filedocumented in this encounter Care Teams Insurance Office Supervisor Relationship Specialty Start Date End Date Kandi Newberry MD [address] [facility] [address] [place] [address] PCP - General Internal Medicine 06/30/19 Michael Blount MD [address] [facility] [address] [place] [address] Cardiology 09/16/19 Will Woodward MD [address] [facility] [address] [place] [address] Pulmonary Disease 09/16/19 documented as of this encounter Additional Source Comments The information contained in this document represents components of the legal health record. It is not the complete legal health record.[facility]
--- NOTE | 2025-04-13 08:27 | W.PM.OPN ---
Operative Note Operative Note Date of Service: 04/13/25 Narrative: Preoperative diagnosis: Elevated PSA Postoperative diagnosis: Elevated PSA Procedure: 1. transrectal ultrasound measurement of prostate 2. transrectal ultrasound-guided pudendal nerve block 3. transrectal ultrasound-guided prostate biopsy 12 core Surgeon: Dr. Evaristo Lema Anesthetic: 10cc 1% lidocaine Indications for procedure: Elevated PSA 6.5 14% Counselling: Technical aspects, risks and benefits of proposed procedure were discussed in full. All questions have been answered, written consent has been obtained and patient agrees to proceed. Procedure: The patient was brought into the procedure area and placed in a left lateral decubitus position. Patient identity confirmed. Perioperative antibiotics confirmed. Safety pause time out performed. SADIE was performed to dilate rectal sphincter Iodine 10cc with 60 cc gel was placed per rectum to reduce infection risk using a catheter tip syringe. 8 Hz Dom rectal end-fire ultrasound probe was placed transrectally without difficulty. The prostate was visualized. Seminal vesicles were normal. Prostate margins were clearly demarcated. Bladder was seen superiorly. No cystic structures were noted Peripheral calcifications were noted at the surgical margin The prostate was otherwise heterogenous in nature - no significant disruption to capsule areas suggestive of prostate cancer. Clear demarcation between posterior and central signs. The prostate was measured in 3 dimensions Prostatic Width: 5.2 cm Prostatic Height: 4.6 cm Urethral Length: 5.3 cm Total volume equals : 65 ml An ultrasound-guided pudendal nerve block was performed using a 22 gauge spinal needle in the sagittal plane. 4 cc of 1% lidocaine placed at the junction of each seminal vesicle and 2 cc placed at the apex of the prostate. A 12 core biopsy was performed with 6 cores each side using an 18 gauge prostate biopsy gun. Two cores each were taken at the prostate apex, mid and base on each side. Cores were spaced between lateral and medial aspects. Each core was examined as placed on specimen foam as part of quality control representative to ensure a minimum 1 cm of length and minimal discontinuity. He tolerated the procedure well with minimal rectal bleeding. Blood pressure remained stable following procedure. He was able to ambulate to bathroom after 5 minutes. Printed instructions regarding antibiotic use and common adverse events from the procedure such as low-grade temperature, potential infection and bleeding were given. He understands to call the office or go to an emergency room should any of these events arise. Pathology: 12 core prostate biopsy. CPT code 75544: Transrectal ultrasound; this is a diagnostic test for evaluation of the prostate and surrounding structures, looking for abnormalities or suspicious areas worrisome for cancer CPT code 53767: Biopsy, prostate; needle or punch, single or multiple, any approach CPT code 38881: Ultrasonic guidance for needle placement (eg, biopsy, aspiration, injection, localization device), imaging supervision and interpretation
[2025-04-13] MEDS: Lidocaine HCl 1 % MPF 5 ML VIAL 10 ML SUBCUT (08:33)
== END 2025-04-13 07:43 | disposition home or self-care (01) ==
LOC: HO.US 07:42
PROVIDERS: PCP Internal Medicine; Visit Provider Urology
DX: R97.20 Elevated prostate specific antigen [PSA] (principal)
CPT/HCPCS: 55700; 76942; 88305; 88344; J2003

== ENCOUNTER → 2025-04-13 07:42 | Outpatient (BNV) | payer BC, SELFPAY | PROVIDERS: PCP Internal Medicine; Visit Provider Urology | DX: R97.20 Elevated prostate specific antigen [PSA] (principal) | CPT/HCPCS: 55700; 76872; 76942 ==

== ENCOUNTER 2025-04-26 14:42 | Outpatient (AMB) | payer BC, SELFPAY ==
--- NOTE | 2025-04-26 14:42 | A.OFFVIS_ITS ---
Intake Visit Reasons: prostate Bx results Intake Note: Patient presents today for tele visit to discuss prostate biopsy results Urology Medications: Tadalafil Blood Thinner: none Costume Draper Required: No Accompanied by: Self / Same As Patient Allergies No Known Allergies Allergy (Verified 04/26/25 14:43) HPI Comments Details: Rashida is a pleasant male. He is a patient of Dr. Newberry. He seen for the following urologic conditions - elevated PSA Telemedicine Evaluation 15 min Consultation [employer] Video Discussed biopsy results 65 g prostate Negative biopsy Recommend finasteride repeat in six-month Elevated PSA Prostate measured 40 cc PCP T calculator reviewed 65% negative predicted chance of prostate cancer, 25% chance of low-grade, 10% chance of high-grade PSA: 12/02 6.1, 02/01 6.7 with % free PSA 14.5%. [facility] Medical History Pre-diabetes Paralysis Scoliosis Erectile dysfunction History of hyperparathyroidism Asthma History of kidney stones Obstructive sleep apnea Essential (primary) hypertension Morbid (severe) obesity due to excess calories Review of Systems Const All systems reviewed & are unremarkable except as noted in HPI and below Reports no additional complaints Resp Reports no additional complaints GI Reports no additional complaints Reports as per HPI Musc Reports no additional complaints Physical Exam Telemedicine evaluation Appropriate responses Regular breathing rate and rhythm HEENT Head: Yes normal to inspection Ears: hearing grossly normal bilaterally Eyes General: appearance normal, both eyes and all related structures Neck Neck: Yes normal visual inspection Chest Chest palpation & inspection: normal inspection of the chest Resp Effort & Inspection: normal respiratory effort and able to speak in complete sentences Telehealth Telehealth Telehealth Platform: [employer] Location of provider rendering services: practice address Location of patient: address on file Patient Identification confirmed using: Name, : Yes Telehealth method: video Patient verbally consented to treatment: Yes Patient verbally consented to billing insurance company: Yes Patient informed of any privacy concerns related to visit: Yes Minutes spent on Phone/Video with Pt.: 15 Assessment & Plan Assessment & Plan (1) Bladder outlet obstruction: Code(s): N32.0 - Bladder-neck obstruction Category: Medical (2) Elevated PSA: Code(s): R97.20 - Elevated prostate specific antigen [PSA] Category: Medical Plan Start finasteride Six-month follow-up check PSA Orders: Orders PSA,Total (Free>4and<10) 6 Months N32.0 - Bladder-neck obstruction Medications: New finasteride 5 mg PO DAILY 90 tabs 1RF 90 days N32.0 - Bladder-neck obstruction Patient Instructions: This note is constructed using voice recognition software. While every effort has been made to ensure accuracy felt tipping machine tender errors may have been included. Imaging studies, laboratory and physical exam results were discussed and reviewed in detail. No major barriers to patient understanding were identified. An opportunity to ask questions regarding the treatment plan was provided. All questions were answered. The patient expressed understanding and agreement with the above treatment plan. The patient is aware they should contact our office by phone for worsening of their current condition or the appearance of new urologic symptoms. Compliance is encouraged with any medications and followup testing that is ordered. It is a privilege to participate in the urologic care of your patient. If you have any questions or concerns regarding treatment for the above conditions, or other urologic issues, please do not hesitate to contact me. The office telephone contact is [phone]. Sincerely, Dr Evaristo Lema MD, [facility] - Urology Compassionate Specialist Care for the Genitourinary System Coding Level of Care Code Tele Est Pt Level 4 (30494) Diagnoses Bladder outlet obstruction N32.0 Elevated PSA R97.20
--- OUTSIDE RECORDS SUMMARY | 2025-04-26 18:19 | XMS_ITS | Encounter Summary ---
Author Organization [facility] Address [address] [facility] [address] [place] [phone] Phone Care Team Providers Care Public Health Professor Name Role Phone Kandi Newberry MD Primary Care Provider Michael Blount MD Unavailable Will Treadwell MD Unavailable [phone] Encounter Details Date Type Department Care Team (Late st Contact Info) Description 02/22/[address] [facility] PERIOPER[facility]IVE DEPT [address] [place] [address] Social History Tobacco Use Types [...] on filedocumented in this encounter Care Teams Public Health Professor Relationship Specialty Start Date End Date Kandi Newberry MD [address] [facility] [address] [place] [address] PCP - General Internal Medicine 06/30/19 Michael Blount MD [address] [facility] [address] [place] [address] Cardiology 09/16/19 Will Treadwell MD [address] [facility] [address] [place] [address] Pulmonary Disease 09/16/19 documented as of this encounter Additional Source Comments The information contained in this document represents components of the legal health record. It is not the complete legal health record.[facility]
--- OUTSIDE RECORDS SUMMARY | 2025-04-26 18:19 | XMS_ITS | Patient Health Record ---
Author Organization [facility] [address] Address [address] [place] [address] Care Team Providers Care Dental Instrument Maker Name Role Phone Carlota Guaman Unavailable [phone] LEXI NEWBERRY Unavailable [phone] ROSALINA AKINS Unavailable [phone] BRADLEYTANO BAIRESA Unavailable [phone] Allergies No Known Allergies Results Component Value Reference Range Notes UA+Urine Culture Reviewed date:12/02/2024 09:20:22 AM Interpretation: Performing Lab:[facility], [facility], Phone - [phone], Director - Shannon Notes/Report: Clinical Information:SRC:UC Specific [place] TNP Test not performed. Patient was unable [...] 02:37:25 PM Interpretation:5.2% Performing Lab: Notes/Report: 5.2% PSA Total+% Free-[id number] Reviewed date:12/07/2024 08:44:14 AM Interpretation: Performing Lab:[facility], [facility], [place], Phone - [phone], Director - Shannon Notes/Report: Clinical Information:SRC:UC Prostate Specific Ag 6.1 0.0-4.0 ng/mL Neri ECLIA methodology. . According to the [employer], Serum PSA should decrease and [...] The following test(s) were not performed: TEST: [id number] UA+Urine Culture Comp. Metabolic Panel ([id number] Reviewed date:12/02/2024 09:20:44 AM Interpretation: Performing Lab:[facility], [address] [place] [address], [place], Phone - [phone], Director - Shannon Notes/Report: Clinical Information:SRC:UC Glucose [...] IU/L ALT (SGPT) 27 0-44 IU/L Lipid Panel-[id number] Reviewed date:12/02/2024 09:20:33 AM Interpretation: Performing Lab:[facility], [address] [place] [address], [place], Phone - [phone], Director - Shannon Notes/Report: Clinical Information:SRC:UC Cholesterol, Total 205 100-199 mg/dL Triglycerides 87 0-149 mg/dL HDL Cholesterol 64 >39 mg/dL VLDL Cholesterol Kosta 16 5-40 mg/dL LDL Chol Calc (NIH) 125 0-99 mg/dL CBC With Differential/Platel et-[id number] Reviewed date:12/02/2024 09:20:12 AM Interpretation: Performing Lab:[facility], [address] [place] [address], [place], Phone - [phone], Director - Shannon Notes/Report: Clinical Information:SRC:UC WBC [...] % Immature Grans (Abs) 0.0 0.0-0.1 x10E3/uL UA+Urine Culture Reviewed date:12/01/2024 11:52:16 AM Interpretation: Performing Lab:[facility] [place], [address], [place], Phone - [phone], Director - Shannon Notes/Report: Clinical Information:SRC:UC Clinical Information:SRC:UC Specific [place] 1.011 1.005-1.030 pH 6.0 5.0-7.5 Urine-Color Yellow [...] be clinically significant. P[facility] Hemoglobin A1C Reviewed date:03/07/2025 03:06:06 PM Interpretation:5.2 Performing Lab: Notes/Report: 5.2 HGA1C 5.2 Reason For Referral Diagnosis 1 Colon cancer screeni (Z12.11) Referral Organization [facility] [address] Referring Provider First Name LEXI Referring Provider Last Name NILAM Referring Provider Speciality Internal M edicine Referred Provider Specialty Gastroentero logy General Notes faxed to garcia YARBROUGH, [address] [place] [address] [id number], [phone], [phone], Neptali Riddle 08/18/2024 11:22:55 AM > Clinical Notes Stef Hernandez 12/2024 01:39:29 PM > [phone] phone, Stef Hernandez 09/14/2024 01:43:11 PM > [...] / PPD FOR 20 Y RS. QUIT 2008 [...] Problem Status W/U Status Risk Notes Problem Lipid screening (187970537) Lipid screening (Z13.220) Active confirmed Problem Screening for malignant neoplasm of prostate (704207311) Encounter for prostate cancer screening (Z12.5) Active confirmed Problem Uncomplicated mild persistent asthma (516717246) Mild persistent asthma without complication (J45.30) Active confirmed Problem Erectile dysfunction (disorder) (393693900) Erectile dysfunction, unspecified erectile dysfunction type (N52.9) Active confirmed Problem Accelerated essentia l hypertension (44368544) Accelerated essential hypertension (I10) Active confirmed Problem Elevated PSA (619559469) Elevated PSA (R97.20) Active confirmed Problem Annual health maintenance examination (14584477) Annual physical exam (Z00.00) Active confirmed Problem Adult health examination (428963697) Adult general medical exam (Z00.00) Active confirmed Problem Hyperlipidaemia (91508418) Hyperlipidemia, unspecified hyperlipidemia type (E78.5) Active confirmed Problem Morbid obesity (540314267) Morbid obesity (E66.01) Active confirmed Problem Exacerbation of asthma (045466412) Unspecified asthma with (acute) exacerbation (J45.901) Active confirmed Problem Aortic aneurysm (45966009) Aortic aneurysm of unspecified site, without rupture (I71.9) Active confirmed Problem Insomnia (030776467) Other insom haley (G47.09) Active confirmed Problem 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) Type 2 diabetes mellitus with unspecified complications (E11.8) Active confirmed Problem Body mass index 40+ - severely obese (583881197) Body mass index (BMI) 40.0-44.9, adult (Z68.41) Active confirmed Problem Essential hypertension (56327641) Essential (primary) hypertension (I10) Active confirmed Problem Hyperlipidemia (23740802) Hyperlipidemia, unspecified (E78.5) Active confirmed Problem Low back pain (finding) (191601350) Lumbar back pain (M54.50) Active confirmed Problem Morbid obesity (119095999) Obesity, Class III, BMI 40-49.9 (morbid obesity) (E66.01) Active confirmed Problem Renal stone (72908125) Renal stone (N20.0) Active confirmed Problem Aneurysm (32414667) Aneurysm (I72.9) Active con firmed Problem Hyperlipoproteinemia (2555275) Acquired hyperlipoproteinemia (E78.5) Active confirmed Problem Adult health examination (389966102) Encounter for general adult medical examination without abnormal findings (Z00.00) Active confirmed Problem Chronic pain (18642798) Other chronic pain (G89.29) Active confirmed Vital Signs Heart Rate 81 /min 03/07/2025 Oximetry 98 % 03/07/2025 Blood pressure diastolic 80 mm Hg 03/07/2025 Height 66 in 03/07/2025 Blood pressure systolic 136 mm Hg 03/07/2025 Weight 269.8 lbs 03/07/2025 BMI 43.54 kg/m2 03/07/2025 Encounters Encounter Location Date Provider Diagnosis [facility] [address] [facility] [address] [place] [address] 05/10/2024 MARCELLA HOANG Soft tissue infectio n L08.[address] [facility] [address] [place] [address] 07/04/2024 LEXI NEWBERRY Shortness of breath R06.02 ; Hyperlipidemia, unspecified E78.5 ; Morbid obesity E66.01 ; Body mass index (BMI) 40.0-44.9, adult Z68.41 and Encounter for immunization Z23 [facility] [address] [address] 08/18/2024 LEXI NEWBERRY Annual physical exam Z00.00 ; Lipid screening Z13.220 ; Accelerated essential hypertension I10 ; Encounter for prostate cancer screening Z12.5 and Morbid obesity E66.01 [facility] [address] [address] 10/24/2024 Carlota Svrcek Sore throat J02.9 [facility] [address] [address] 11/24/2024 Carlota Svrcek Type 2 diabetes jessica itus with unspecified complications E11.8 ; Essential (primary) hypertension I10 ; Morbid obesity E66.01 ; Elevated PSA R97.20 ; Erectile dysfunction, unspecified erectile dysfunction type N52.9 ; Other insomnia G47.09 and Mild persistent asthma without complication J45.30 [facility] [address] [address] 01/04/2025 Carlota Svrcek Essential (primary) hypertension I10 ; Type 2 diabetes mellitus with unspecified complications E11.8 ; Morbid obesity E66.01 and Mild persistent asthma without complication J45.30 [facility] [address] [address] 03/07/2025 Carlota Svrcek Type 2 diabetes jessica itus with unspecified complications E11.8 ; Elevated PSA R97.20 ; Aortic aneurysm of unspecified site, without rupture I71.9 ; Mild persistent asthma without complication J45.30 and Encounter for examination of blood pressure without abnormal findings Z01.30 [facility] [address] [facility] [address] [place] [address] 05/10/2024 LEXI NEWBERRY [facility] [address] [place] [address] 06/27/2024 LEXI NEWBERRY [facility] [address] [place] [facility] [address] 07/04/2024 TALAL NEWBERRY Type 2 diabetes jessica itus with unspecified complications E11.[address] [address] [place] [address] 07/21/2024 ROSALINA AKINS [facility] [address] [place] [address] 08/09/2024 TALAL NEWBERRY [facility] [address] [facility] [address] [place] [address] 08/18/2024 TALAL NEWBERRY [facility] [address] [place] [address] 09/02/2024 TALAL NEWBERRY [facility] [address] [place] [address] 09/14/2024 TALAL NEWBERRY [facility] [address] [place] [address] 10/12/2024 TALAL NEWBERRY [facility] [address] [facility] [address] [place] [address] 10/24/2024 Carlota Svrcek [facility] [address] [facility] [address] [place] [address] 11/22/2024 Carlota Svrcek [facility] [address] [address] 12/19/2024 Carlota Svrcek Type 2 diabetes jessica itus with unspecified complications E11.8 [facility] [address] [facility] [address] [place] [address] 12/20/2024 Carlota Svrcek Type 2 diabetes jessica itus with unspecified complications E11.8 [facility] [address] [address] 02/13/2025 Carlota Svrcek Assessments Encounter Date Diagnosis [...] Wixela Inhub 100-50 MCG/ACT. Currently sees a software designer. Will follow with software designer. # Obstructive Sleep Apnea: Stable. States wearing [...] log exercise and discussed fitness Apps like Pinguo which can help keep log off calories [...] Dictation was accomplished with the use of Nautal voice recognition software, prone to medical misidentifications [...] current regimen. Case discussed with collaborating physician aPtricia Newberry who reviewed the assessment and plan. Chart, medications, labs, vital signs reviewed. Dictation was accomplished with the use of Nautal voice recognition software, prone to medical misidentifications [...] Dictation was accomplished with the use of Nautal voice recognition software, prone to medical misidentifications [...] Dictation was accomplished with the use of Nautal voice recognition software, prone to medical misidentifications [...] Dictation was accomplished with the use of Nautal voice recognition software, prone to medical misidentifications [...] Dictation was accomplished with the use of Nautal voice recognition software, prone to medical misidentifications [...] Dictation was accomplished with the use of Nautal voice recognition software, prone to medical misidentifications [...] Dictation was accomplished with the use of Nautal voice recognition software, prone to medical misidentifications [...] Dictation was accomplished with the use of Nautal voice recognition software, prone to medical misidentifications [...] Dictation was accomplished with the use of Nautal voice recognition software, prone to medical misidentifications [...] log exercise and discussed fitness Apps like Pinguo which can help keep log off calories [...] hemoglobin A1c testing might be appropriate. 07/04/2024 Hyperlipidemia, unspecified (ICD-10 - E78.5) Pearl [...] Wixela Inhub 100-50 MCG/ACT. Currently sees a software designer. Will follow with software designer. # Obstructive Sleep Apnea: Stable. States wearing [...] Wixela Inhub 100-50 MCG/ACT. Currently sees a software designer. Will follow with software designer. # Obstructive Sleep Apnea: Stable. States wearing [...] contact the office and be reevaluated. 11/24/2024 Elevated PSA (ICD-10 - R97.20) #Type [...] Dictation was accomplished with the use of Nautal voice recognition software, prone to medical misidentifications [...] log exercise and discussed fitness Apps like Pinguo which can help keep log off calories [...] Dictation was accomplished with the use of Nautal voice recognition software, prone to medical misidentifications [...] next visit it any questions/concerns arise. 03/07/2025 Mild persistent asthma without complication (ICD-10 [...] Dictation was accomplished with the use of Nautal voice recognition software, prone to medical misidentifications [...] Dictation was accomplished with the use of Nautal voice recognition software, prone to medical misidentifications [...] log exercise and discussed fitness Apps like Pinguo which can help keep log off calories [...] Wixela Inhub 100-50 MCG/ACT. Currently sees a software designer. Will follow with software designer. # Obstructive Sleep Apnea: Stable. States wearing [...] Dictation was accomplished with the use of Nautal voice recognition software, prone to medical misidentifications [...] next visit it any questions/concerns arise. 11/24/2024 Other insomnia (ICD-10 - G47.09) [...] Dictation was accomplished with the use of Nautal voice recognition software, prone to medical misidentifications [...] next visit it any questions/concerns arise. 07/04/2024 Encounter for immunization (ICD-10 - Z23) [...] Wixela Inhub 100-50 MCG/ACT. Currently sees a software designer. Will follow with software designer. # Obstructive Sleep Apnea: Stable. States wearing [...] log exercise and discussed fitness Apps like Pinguo which can help keep log off calories [...] hemoglobin A1c testing might be appropriate. 11/24/2024 Mild persistent asthma without complication (ICD-10 [...] Dictation was accomplished with the use of Nautal voice recognition software, prone to medical misidentifications [...] COUNT) 09/11/2020 CBC (COMPLETE BLOOD COUNT) 07/01/2022 CBC (COMPLETE BLOOD COUNT) 08/31/2018 CBC (COMPLETE BLOOD COUNT) 06/29/2018 CBC (COMPLETE BLOOD COUNT) 12/17/2020 COMPREHENSIVE METABOLIC [...] LIPID PANEL, STANDARD 09/01/2022 LIPID PANEL, STANDARD 06/06/2021 LIPID PANEL, STANDARD 03/31/2022 LIPID PANEL, STANDARD 03/21/2024 LIPID PANEL, STANDARD 01/26/2023 COMPREHENSIVE METABOLIC PANEL 03/21/2024 COMPREHENSIVE METABOLIC PANEL 01/26/2023 COMPREHENSIVE METABOLIC PANEL 03/31/2022 COMPREHENSIVE METABOLIC PANEL 10/19/2023 COMPREHENSIVE METABOLIC PANEL 09/01/2022 COMPREHENSIVE METABOLIC PANEL 08/18/2024 CBC (INCLUDES DIFF/PLT) 08/18/2024 CBC (INCLUDES DIFF/PLT) 09/01/2022 CBC (INCLUDES DIFF/PLT) 10/19/2023 CBC (INCLUDES DIFF/PLT) 03/31/2022 CBC (INCLUDES DIFF/PLT) 01/26/2023 CBC (INCLUDES DIFF/PLT) 03/21/2024 URINALYSIS, COMPLETE 03/31/2022 URINALYSIS, COMPLETE 01/26/2023 URINALYSIS, COMPLETE 10/19/2023 URINALYSIS, COMPLETE 09/01/2022 URINALYSIS, COMPLETE W/REFLEX TO CULTURE 07/01/2022 HEMOGLOBIN A1c 06/06/2021 HEMOGLOBIN A1c 01/26/2023 PSA (FREE AND TOTAL) 08/18/2024 PSA, TOTAL 03/31/2022 HEPATITIS B ANTIBODY, QUANT 09/11/2020 HEPATITIS A ANTIBODY TOTAL 09/11/2020 US Duplex Venous Study Bilat 09/11/2020 [facility] Hemoglobin A1C 01/04/2025 Future Test Test Name Order Date COMPLETE URINALYSIS 09/22/2020 Next Appt Details Provider Name:Carlota Guaman, 1 03:00:00 PM, [address] [facility] [address], [place], [address], Insurance Providers Payer Name Payer Address Payer Phone Subscriber Number Group Number Insured Name Patient Relationship to Insured Coverage Start Date Coverage End Date [facility] [address] [place] [address] [phone] [id number] PEARL AGUILAR Self - patient is the [...]
--- OUTSIDE RECORDS SUMMARY | 2025-04-26 18:19 | XMS_ITS | Clinical Summary ---
Author Organization [facility] Address [address] [facility] [address] [place] [phone] Phone Care Team Providers Care Digital Associate Name Role Phone Kandi Newberry MD Primary Care Provider Michael Blount MD Unavailable Will Treadwell MD Unavailable [phone] Allergies No known active allergies Medications fluticasone propion-salmete rol (ADVAIR DISKUS) 500-50 mcg/dose DISKUS Inhale 500 mcg/actuation of fluticasone into the lungs 2 (two) times a day. Active albuterol 90 mcg/actuation inhaler Inhale 2 puffs into the lungs every 6 (six) hours as needed for wheezing. Active losartan (COZAAR) 100 MG tablet Take 50 mg by mouth daily. Active furosemide (LASIX) 40 MG tablet Take 40 mg by mouth. Active albuterol (ACCUNEB) 0.63 mg/3 mL nebulizer solution Take 1 ampule by nebulization every 6 (six) hours as needed for wheezing. Active ipratropium-alb uteroL (DUONEB) 0.5-3 mg (2.5 mg base)/3 mL nebulizer solution INHALE 3 ML PO QID PRN FOR WHEEZING/SHORTNE SS OF BREATH 0 Active acetaminophen (TYLENOL) 325 mg tablet Take 2 tablets (650 mg total) by mouth every 6 (six) hours as needed for mild pain or fever. 0 0 Active bisacodyl (DULCOLAX) 5 mg EC tablet Take 1 tablet (5 mg total) by mouth daily as needed. 0 Active docusate sodium (COLACE) 100 MG capsule Take 1 capsule (100 mg total) by mouth 2 (two) times a day. 0 Active HYDROmorphone (DILAUDID) 2 MG tablet Take 1 tablet (2 mg total) by mouth every 4 (four) hours as needed. Partial fill ok. Wean as tolerated. 60 tablet 0 Active senna (SENOKOT) 8.6 mg tablet Take 2 tablets by mouth nightly at bedtime. 0 Active Active Problems Problem Noted Date Diagnosed Date Cervical spinal stenosis 02/22/2020 Social History Tobacco Use Types Packs/Day Years Used Date Smoking Tobacco: Former Cigarettes 0.3 15 0 01/08/1995 - 01/08/2010 Smokeless Tobacco: Never Alcohol Use Standard Drinks/Week Comments Yes 16 (1 standard drink = 0.6 oz pu re alcohol) socially Education Answer Date Recorded Are you interested in more education? Not on gillian e 12/05/2022 Are you concerned about learning? Not on file 12/05/2022 No 12/05/2022 No 12/05/2022 Digital Access Answer Date Recorded No 01/03/2023 No 01/03/2023 No 01/03/2023 Reliable internet access at home? Not on file 01/03/2023 Device with a working camera? Not on file Sex and Gender Information Value Date Recorded Sex Assigned at Male 06/30/2019 12:02 PM EST Legal Sex Male 11:57 AM EST Gender Identity Male 06/30/2019 12:02 PM EST Sexual Orientation Straight 06/30/2019 12 :02 PM EST Last Filed Vital Signs Vital Sign Reading Time Taken Comments Blood Pressure 124/68 02/23/2020 11:10 AM EDT Pulse 84 02/23/2020 11:10 AM EDT Temperature 36.6 C (97.9 F) 02/23/2020 11:10 AM EDT Respiratory Rate 18 02/23/2020 11:10 AM EDT Oxygen Saturation 94% 02/23/2020 11:10 AM EDT Inhaled Oxygen Concentration - - Weight 123 kg (271 lb 2.7 oz) 02/22/2020 3:22 PM EDT Height 170.2 cm (5' 7 ) 02/22/2020 3:22 PM EDT Body Mass Index 42.47 02/22/2020 3:22 PM EDT Plan of Treatment Health Maintenance Due Date Last Done Comments Adult Td,Tdap Booster 1964 LIPID PANEL 1964 DEPRESSION SCREENING 1976 SMOKING Hx and SMOKELESS TOBACCO SCREENING 1977 HEPATITIS C SCREENING 1982 HIV ONE-TIME SCREENING (18-6 5 YEARS) 1982 COLOGUARD 2009 COLONOSCOPY 2009 COLORECTAL CANCER SCREENING 2009 FIT TEST 2009 FOBT 2009 SIGMOIDOSCOPY 2009 VIRTUAL COLONOSCOPY 2009 PNEUMOCOCCAL VACCINES (50+ years) (1 of 1 - PCV) 2014 ZOSTER VACCINES (1 of 2) 2014 CREATININE LEVEL 02/22/2021 02/23/2020, 02/07/2020, 07/05/2019 POTASSIUM LEVEL 02/22/2021 02/23/2020, 02/07/2020, 07/05/2019 INFLUENZA VACCINE (#1) 2025 COVID-19 VACCINE (2 - 2024-2 6 season) 2025 11/03/2020 RSV VACCINE (1 - 1-dose 75+ series) 2039 HEPATITIS A VACCINES Aged Out No long er eligible based on patient's age to complete this topic HIB VACCINES Aged Out No longer eligi ble based on patient's age to complete this topic MENINGOCOCCAL VACCINES (ACWY) Aged Out No longer eligible based on patient's age to complete this topic MENINGOCOCCAL VACCINES (B) Aged Out N o longer eligible based on patient's age to complete this topic Medical Devices Implanted Type Area Order Administrator Device Identifier Shelf Expiration Date Model / Serial / Lot Modulus Cervical (6 X 15 X12 Mm 7 Degree) Nuvasive Implanted:Qty: 1 on 02/22/2020 by Samson Morales MD at [facility] Bilateral : Neck / [id number] / [id number] Nuvasive Spine Implanted:Qty: 1 on 02/22/2020 by Samson Morales MD at [facility] Bilateral : Neck / [id number] / Description:Plate cervical s pine Nuvasive Spine Implanted:Qty: 4 on 02/22/2020 by Samson Morales MD at [facility] Bilateral : Neck / [id number] / Description:Nuvasive spine a nterior cervical screw Procedures Procedure Name Priority Date/Time Associated Diagnosis Comments BASIC METABOLIC PANEL Routine 02/23/2020 5:10 AM EDT from Last 3 Months or Most Recently Relevant to Health Maintenance Results * (ABNORMAL) Basic metabolic panel (02/23/2020 5:10 AM EDT) SODIUM 139 135 - 145 mmol/L [facility] POTASSIUM 4.4 3.4 - 5.0 mmol/L [facility] CHLORIDE 101 98 - 108 mmol/L [facility] CO2 27 23 - 32 mmol/L [facility] BUN 12 8 - 25 mg/dL [facility] CREATININE 0.69 0.60 - 1.50 mg/dL [facility] GLUCOSE 129(H) 70 - 110 mg/dL [facility] CALCIUM 9.4 8.5 - 10.5 mg/dL [facility] EGFR 107 >59 mL/min/1. 73m2 [facility] Comment:Estimated glomerular filtration rate calculated using the CKD-EPI equation. ANION GAP 11 3 - 17 mmol/L [facility] Blood 02/23/2020 5:10 AM EDT 02/23/2020 5:35 AM EDT us Samson Morales MD LAB BLOOD ORDERABLES Final Res ult Performing Organization Address City/State/[facility] Co de Phone Number [address] [address] from Last 3 Months or Most Recently Relevant to Health Maintenance Insurance [facility] [place] [address] [place] [address] [place] [address] [place] [address] [place] [address] [employer]AL Advance Directives For more information, please contact: [phone] (9AM - 5PM [facility], Thursday-Thursday) * Full Code (Presumed) (Latest Code Status on File) Date Activated Date Inactivated Comments 02/22/2020 10:17 AM Care Teams Digital Associate Relationship Specialty Start Date End Date Kandi Newberry MD [address] [facility] [address] [place] [address] PCP - General Internal Medicine 06/30/19 Michael Blount MD [address] [facility] [address] [place] [address] Cardiology 09/16/19 [place] [address] [place] [address] [address] [place] [address] Pulmonary Disease 09/16/19 Additional Source Comments The information contained in this document represents components of the legal health record. It is not the complete legal health record.[facility]
== END 2025-04-26 15:25 | disposition home or self-care (01) ==
LOC: HO.HUSH 14:42
PROVIDERS: PCP Internal Medicine; Visit Provider Urology
DX: N32.0 Bladder-neck obstruction (principal); R97.20 Elevated prostate specific antigen [PSA]
CPT/HCPCS: 99214

== ENCOUNTER 2025-06-05 14:43 | Outpatient (REF) | payer BC, SELFPAY ==
--- OUTSIDE RECORDS SUMMARY | 2024-01-25 11:00 | XMS_ITS ---
Author Organization [facility] [address] Address [address] [place] [address] Care Team Providers Care Nut Sorter Name Role Phone Carlota Guaman Unavailable [phone] LEXI NEWBERRY Unavailable [phone] Encounters Encounter Location Date Provider Diagnosis [facility] [address] [place] [address] 01/25/2024 LEXI NEWBERRY Plan Of Treatment Next Appt Details Provider Name:Carlota Guaman, 1 03:00:00 PM, [address] [facility], [address], [address], Progress Notes * PEARL AGUILAR PDOB:[birth year] (59 yo M)Acc No.[id number]:01/25/2024 Progress Notes Patient: Ab SALCEDO PEARL Monroy Provider: Patricia Newberry MD :1965 A ge:58 Y S ex:Male Date:01/25/2024 Address:[address] [place] [phone] Subjective: * Chief Complaints: * * Medical History: Objective: * Vitals: Assessment: Plan: * Treatment: * Images: Billing Information: * Visit Code: * Procedure Codes: Care Plan Details* * Electronic signature of ARPIT NEWBERRY MD on 06/05/2025 at 06:11 PM EDT Sign off status: Pending * Provider: Patricia Newberry MD Date: 0 01/25/2024 Generated for Juanpablo lu/Osmar/Leandraitting on: 1 06:11 PM EDT
--- NOTE | ~2025-06-05 | US_ITS ---
EXAMINATION: US RETROPERITONEAL LIMITED (RENAL ONLY) CLINICAL INFORMATION: Calculus of kidney.. COMPARISON: February 19, 2025. TECHNIQUE: Real-time ultrasound kidneys using grayscale technique with the curvilinear transducer. FINDINGS: RIGHT KIDNEY: 12 x 7 x 6 cm (SAG x AP x TRV). Normal echotexture. Renal cortical thickness is normal. No hydronephrosis. No gross solid or cystic lesion. LEFT KIDNEY: 13 x 9 x 6 cm (SAG x AP x TRV). Normal echotexture. Renal cortical thickness is normal. No hydronephrosis. There are multiple at least 3 anechoic lesions, the largest measures 5.6 cm in the upper pole. There is a 1.2 cm anechoic lesion in the mid portion and a 3.4 cm in the lateral midportion. No septations or nodular components were flow on color Doppler interrogation.. US/US renal BI IMPRESSION: Multifocal cysts, left kidney. No hydronephrosis. No gross nephrolithiasis.. Electronically signed by: Harjeet Dutton MD 06/05/2025 03:33 PM EDT
--- OUTSIDE RECORDS SUMMARY | 2025-06-05 18:11 | XMS_ITS | Patient Health Record ---
Author Organization [facility] [address] Address [address] [place] [address] Care Team Providers Care Stem Crusher Name Role Phone Carlota Guaman Unavailable [phone] LEXI NEWBERRY Unavailable [phone] AKINSROSALINA WILKINS Unavailable [phone] Allergies No Known Allergies Results Component Value Reference Range Notes UA+Urine Culture Reviewed date:12/01/2024 11:52:16 AM Interpretation: Performing Lab:[facility], [address] [facility], Phone - [phone], Director - Shannon Notes/Report: Clinical Information:SRC:UC Clinical Information:SRC:UC Specific Bayard 1.011 1.005-1.030 pH 6.0 5.0-7.5 Urine-Color Yellow [...] not generally considered to be clinically significant. PSA Total+% Free-[id number] Reviewed date:12/07/2024 08:44:14 AM Interpretation: Performing Lab:[facility], [facility], [place], Phone - [phone], Director - Shannon Notes/Report: Clinical Information:SRC:UC Prostate Specific Ag 6.1 0.0-4.0 ng/mL Neri ECLIA methodology. . According to the [employer] [employer], Serum PSA should decrease and [...] The following test(s) were not performed: TEST: [id number] UA+Urine Culture Lipid Panel-[id number] Reviewed date:12/02/2024 09:20:33 AM Interpretation: Performing Lab:Mikhail Murillo, [address] [facility], Phone - [phone], Director - Shannon Notes/Report: Clinical Information:SRC:UC Cholesterol, Total 205 100-199 mg/dL Triglycerides 87 0-149 mg/dL HDL Cholesterol 64 >39 mg/dL VLDL Cholesterol Kosta 16 5-40 mg/dL LDL Chol Calc ([facility]) 125 0-99 mg/dL PPC Hemoglobin A1C Reviewed date:11/24/2024 02:37:25 PM Interpretation:5.2% Performing Lab: Notes/Report: 5.2% PPC Hemoglobin A1C Reviewed date:03/07/2025 03:06:06 PM Interpretation:5.2 Performing Lab: Notes/Report: 5.2 HGA1C 5.2 UA+Urine Culture Reviewed date:12/02/2024 09:20:22 AM Interpretation: Performing Lab:Mikhail Murillo, [address] [facility], [place], Phone - [phone], Director - Shannon Notes/Report: Clinical Information:SRC:UC Specific Bayard TNP Test not performed. Patient was unable to provide a self-collected specimen for the requested testing. The following test(s) were not performed: pH TNP Test not perfor med Protein TNP Test not perfor med Glucose TNP Test not perfor med Ketones TNP Test not perfor med Urine Culture, Routine TNP Test not performed Comp. Metabolic Panel ([id number] Reviewed date:12/02/2024 09:20:44 AM Interpretation: Performing Lab:[facility] [place], [address] [facility], Phone - [phone], Director - Shannon Notes/Report: Clinical Information:SRC:UC Glucose [...] 0-40 IU/L ALT (SGPT) 27 0-44 IU/L CBC With Differential/Platel et-[id number] Reviewed date:12/02/2024 09:20:12 AM Interpretation: Performing Lab:[facility] [place], [address] [facility], [place], Phone - [phone], Director - Shannon Notes/Report: Clinical Information:SRC:UC WBC [...] Colon cancer screeni ng (Z12.11) Referral Organization [facility] [address] Referring Provider First Name LEXI Referring Provider Last Name NILAM Referring Provider Speciality Internal M edicine Referred Provider Specialty Gastroentero logy General Notes faxed to garcia YARBROUGH, [address] [place] [address] [id number], [phone], [phone], Neptali Riddle 08/18/2024 11:22:55 AM > Clinical Notes David Benjaminabi 12/2024 01:39:29 PM > [phone] phone, Stef Hernandez 09/14/2024 01:43:11 PM > [...] Losartan Potassium 50 MG TAKE 1 TABLET B Y MOUTH DAILY; Duration: 90 days Active Metoprolol Succinate ER 25 MG TAKE 1 TABLET BY MOUTH EVERY DAY; Duration: 90 days Active Mounjaro 12.5 MG/0.5ML 0.5 ML Subcutaneo us once weekly; Duration: 28 days Active Albuterol Sulfate HFA 108 (90 Base) MCG/ACT 2 puff as needed Inhalation every 4 hrs; Duration: 30 days 03/07/2025 Active Cialis 20 MG 1 tablet as needed O rally Once a day as needed; Duration: 90 [...] 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) Type 2 diabetes mellitus with unspecified complications (E11.8) Active confirmed Problem Hyperlipidemia (40793727) Hyperlipidemia, unspecified (E78.5) Active confirmed Problem Insomnia (774877883) Other insom haley (G47.09) Active confirmed Problem Chronic pain (42363339) Other chronic pain (G89.29) Active confirmed Problem Essential hypertension (99283483) Essential (primary) hypertension (I10) Active confirmed Problem Aortic aneurysm (15352858) Aortic aneurysm of unspecified site, without rupture (I71.9) Active confirmed Problem Exacerbation of asthma (497590471) Unspecified asthma with (acute) exacerbation (J45.901) Active confirmed Problem Adult health examination (892902478) Encounter for general adult medical examination without abnormal findings (Z00.00) Active confirmed Problem Body mass index 40+ - severely obese (145059559) Body mass index (BMI) 40.0-44.9, adult (Z68.41) Active confirmed Problem Morbid obesity (219176424) Morbid obesity (E66.01) Active confirmed Problem Hyperlipidaemia (25208150) Hyperlipidemia, unspecified hyperlipidemia type (E78.5) Active confirmed Problem Hyperlipoproteinemia (8749052) Acquired hyperlipoproteinemia (E78.5) Active confirmed Problem Adult health examination (115610376) Adult general medical exam (Z00.00) Active confirmed Problem Annual health maintenance examination (87500522) Annual physical exam (Z00.00) Active confirmed Problem Elevated PSA (471756207) Elevated PSA (R97.20) Active confirmed Problem Accelerated essentia l hypertension (45274063) Accelerated essential hypertension (I10) Active confirmed Problem Erectile dysfunction (disorder) (610495045) Erectile dysfunction, unspecified erectile dysfunction type (N52.9) Active confirmed Problem Aneurysm (78002423) Aneurysm (I72.9) Active con firmed Problem Renal stone (28277167) Renal stone (N20.0) Active confirmed Problem Uncomplicated mild persistent asthma (017503229) Mild persistent asthma without complication (J45.30) Active confirmed Problem Morbid obesity (740389899) Obesity, Class III, BMI 40-49.9 (morbid obesity) (E66.01) Active confirmed Problem Screening for malignant neoplasm of prostate (579478492) Encounter for prostate cancer screening (Z12.5) Active confirmed Problem Lipid screening (626014482) Lipid screening (Z13.220) Active confirmed Problem Low back pain (finding) (212623951) Lumbar back pain (M54.50) Active confirmed Vital Signs Heart Rate 81 /min 03/07/2025 Oximetry 98 % 03/07/2025 Blood pressure diastolic 80 mm Hg 03/07/2025 Height 66 in 03/07/2025 Blood pressure systolic 136 mm Hg 03/07/2025 Weight 269.8 lbs 03/07/2025 BMI 43.54 kg/m2 03/07/2025 Encounters Encounter Location Date Provider Diagnosis [facility] [address] [place] [address] 07/04/2024 TALCHRIS NEWBERRY Shortness of breath R06.02 ; Hyperlipidemia, unspecified E78.5 ; Morbid obesity E66.01 ; Body mass index (BMI) 40.0-44.9, adult Z68.41 and Encounter for immunization Z23 [facility] [address] [address] 08/18/2024 LEXI NEWBERRY Annual physical exam Z00.00 ; Lipid screening Z13.220 ; Accelerated essential hypertension I10 ; Encounter for prostate cancer screening Z12.5 and Morbid obesity E66.01 [facility] [address] [address] 10/24/2024 Carlota Svrcek Sore throat J02.9 [facility] [address] [address] 11/24/2024 Carlota Svrcek Type 2 diabetes jessica itus with unspecified complications E11.8 ; Essential (primary) hypertension I10 ; Morbid obesity E66.01 ; Elevated PSA R97.20 ; Erectile dysfunction, unspecified erectile dysfunction type N52.9 ; Other insomnia G47.09 and Mild persistent asthma without complication J45.30 [facility] [address] [address] 01/04/2025 Carlota Svrcek Essential (primary) hypertension I10 ; Type 2 diabetes mellitus with unspecified complications E11.8 ; Morbid obesity E66.01 and Mild persistent asthma without complication J45.30 [facility] [address] [address] 03/07/2025 Carlota Svrcek Type 2 diabetes jessica itus with unspecified complications E11.8 ; Elevated PSA R97.20 ; Aortic aneurysm of unspecified site, without rupture I71.9 ; Mild persistent asthma without complication J45.30 and Encounter for examination of blood pressure without abnormal findings Z01.[address] [address] [place] [address] 06/27/2024 LEXI NEWBERRY [facility] [address] [place], [place] 07/04/2024 LEXI NEWBERRY Type 2 diabetes jessica itus with unspecified complications E11.[address] [address] [place] [address] 07/21/2024 ROSALINA AKINS [facility] [address] [place] [address] 08/09/2024 TALAL NEWBERRY [facility] [address] [place] [address] 08/18/2024 TALAL NEWBERRY [facility] [address] [place] [address] 09/02/2024 TALAL NEWBERRY [facility] [address] [place] [address] 09/14/2024 TALAL NEWBERRY [facility] [address] [place] [address] 10/12/2024 TALAL NEWBERRY [facility] [address] [place] [address] 10/24/2024 Carlota Svrcek [facility] [address] [facility] [address] [place] [address] 11/22/2024 Carlota Svrcek [facility] [address] [address] 12/19/2024 Carlota Svrcek Type 2 diabetes jessica itus with unspecified complications E11.8 [facility] [address] [place] [address] 12/20/2024 Carlota Svrcek Type 2 diabetes jessica itus with unspecified complications E11.8 [facility] [address] [facility] [address] [place] [address] 02/13/2025 Carlota Svrcek [facility] [address] [place] [address] 05/29/2025 Carlota Svrcek Type 2 diabetes jessica itus with unspecified complications E11.8 Assessments Encounter Date Diagnosis (ICD Code) Assessment Notes Treatment Notes Treatment Clinical Notes Section Notes 07/04/2024 Shortness of breath (ICD-10 - R06.02) [...] Wixela Inhub 100-50 MCG/ACT. Currently sees a dean of students. Will follow with dean of students. # Obstructive Sleep Apnea: Stable. States wearing [...] log exercise and discussed fitness Apps like [employer] which can help keep log off [...] Dictation was accomplished with the use of Capricor voice recognition software, prone to medical misidentifications [...] Dictation was accomplished with the use of [employer] voice recognition software, prone to medical misidentifications [...] Dictation was accomplished with the use of [employer] voice recognition software, prone to medical misidentifications [...] Dictation was accomplished with the use of [employer] voice recognition software, prone to medical misidentifications [...] Dictation was accomplished with the use of [employer] voice recognition software, prone to medical misidentifications [...] Dictation was accomplished with the use of [employer] voice recognition software, prone to medical misidentifications [...] Dictation was accomplished with the use of [employer] voice recognition software, prone to medical misidentifications and grammatical errors. This is unintentional and the practitioner does try to identify and correct these, but some could still be present. Please do not hesitate to contact practitioner for clarification. All questions answered to patients satisfaction. Patient verbalized understanding of diagnosis and treatments explained. To call sooner prior to next visit it any questions/concerns arise. 05/29/2025 Type 2 diabetes mellitus with unspecified complications (ICD-10 - E11.8) 03/07/2025 Aortic aneurysm of unspecified site, without [...] Dictation was accomplished with the use of [employer] voice recognition software, prone to medical misidentifications [...] Dictation was accomplished with the use of [employer] voice recognition software, prone to medical misidentifications [...] Dictation was accomplished with the use of [employer] voice recognition software, prone to medical misidentifications [...] log exercise and discussed fitness Apps like [employer] which can help keep log off [...] Wixela Inhub 100-50 MCG/ACT. Currently sees a dean of students. Will follow with dean of students. # Obstructive Sleep Apnea: Stable. States wearing [...] Wixela Inhub 100-50 MCG/ACT. Currently sees a dean of students. Will follow with dean of students. # Obstructive Sleep Apnea: Stable. States wearing [...] Dictation was accomplished with the use of [employer] voice recognition software, prone to medical misidentifications [...] log exercise and discussed fitness Apps like [employer] which can help keep log off [...] Dictation was accomplished with the use of [employer] voice recognition software, prone to medical misidentifications [...] Dictation was accomplished with the use of [employer] voice recognition software, prone to medical misidentifications [...] Dictation was accomplished with the use of [employer] voice recognition software, prone to medical misidentifications [...] log exercise and discussed fitness Apps like [employer] which can help keep log off [...] Wixela Inhub 100-50 MCG/ACT. Currently sees a dean of students. Will follow with dean of students. # Obstructive Sleep Apnea: Stable. States wearing [...] Dictation was accomplished with the use of [employer] voice recognition software, prone to medical misidentifications [...] Dictation was accomplished with the use of [employer] voice recognition software, prone to medical misidentifications [...] Wixela Inhub 100-50 MCG/ACT. Currently sees a dean of students. Will follow with dean of students. # Obstructive Sleep Apnea: Stable. States wearing [...] log exercise and discussed fitness Apps like [employer] which can help keep log off [...] Dictation was accomplished with the use of [employer] voice recognition software, prone to medical misidentifications [...] 08/31/2018 APTT 09/11/2020 CBC (COMPLETE BLOOD COUNT) 12/17/2020 CBC (COMPLETE BLOOD COUNT) 09/11/2020 CBC (COMPLETE BLOOD COUNT) 08/31/2018 CBC (COMPLETE BLOOD COUNT) 06/29/2018 CBC (COMPLETE BLOOD COUNT) 07/01/2022 COMPREHENSIVE METABOLIC PANEL 06/29/2018 COMPREHENSIVE METABOLIC PANEL 08/31/2018 COMPREHENSIVE METABOLIC PANEL 12/17/2020 COMPREHENSIVE METABOLIC PANEL 09/11/2020 CRP, HIGH SENSITIVITY [...] LIPID PANEL, STANDARD 03/21/2024 LIPID PANEL, STANDARD 09/01/2022 LIPID PANEL, STANDARD 01/26/2023 LIPID PANEL, STANDARD 03/31/2022 LIPID PANEL, STANDARD 06/06/2021 COMPREHENSIVE METABOLIC PANEL 03/31/2022 COMPREHENSIVE METABOLIC PANEL 09/01/2022 COMPREHENSIVE METABOLIC PANEL 01/26/2023 COMPREHENSIVE METABOLIC PANEL 08/18/2024 COMPREHENSIVE METABOLIC PANEL 03/21/2024 COMPREHENSIVE METABOLIC PANEL 10/19/2023 CBC (INCLUDES DIFF/PLT) 10/19/2023 CBC (INCLUDES DIFF/PLT) 03/21/2024 CBC (INCLUDES DIFF/PLT) 08/18/2024 CBC (INCLUDES DIFF/PLT) 01/26/2023 CBC (INCLUDES DIFF/PLT) 09/01/2022 CBC (INCLUDES DIFF/PLT) 03/31/2022 URINALYSIS, COMPLETE 09/01/2022 URINALYSIS, COMPLETE 10/19/2023 URINALYSIS, COMPLETE 03/31/2022 URINALYSIS, COMPLETE 01/26/2023 URINALYSIS, COMPLETE W/REFLEX TO CULTURE 07/01/2022 HEMOGLOBIN A1c 01/26/2023 HEMOGLOBIN A1c 06/06/2021 PSA (FREE AND TOTAL) 08/18/2024 PSA, TOTAL 03/31/2022 HEPATITIS B ANTIBODY, QUANT 09/11/2020 HEPATITIS A ANTIBODY TOTAL 09/11/2020 US Duplex Venous Study Bilat 09/11/2020 PPC Hemoglobin A1C 01/04/2025 Future Test Test Name Order Date COMPLETE URINALYSIS 09/22/2020 Next Appt Details Provider Name:Carlota Guaman, 1 03:00:00 PM, [address] [facility] [address], [place], [address], Insurance Providers Payer Name Payer Address Payer Phone Subscriber Number Group Number Insured Name Patient Relationship to Insured Coverage Start Date Coverage End Date Blue Cross and Blue [facility] [address] [place] [address] [id number] PEARL AGUILAR Self - patient is the [...]
--- OUTSIDE RECORDS SUMMARY | 2025-06-05 18:11 | XMS_ITS | Clinical Summary ---
Author Organization [facility] [address] [facility] Address [address] [place] [address] Phone Care Team Providers Care Chemistry Tutor Name Role Phone Kandi Newberry MD Primary Care Provider [phone] Allergies Active Allergy Reactions Criticality Noted Date [...] PROCEDURE: HISTORICAL PARATHYROIDECTOMY OTHER SURGICAL HISTORY PROCEDURE: AL LAMOPLASTY CERVICAL DCMPRN CORD 2/> SEG RCNSTJ OTHER SURGICAL HISTORY 2020 PROCEDURE: AL EXC NEUROMA MAJOR PERIPHERAL NRV XCP SCIATIC; [...] Health Maintenance Due Date Last Done Comments Colorectal Cancer Screening: Colonoscopy 1964 Diabetes: Annual GFR (Glomerular Filtration Rate) 1964 Diabetes: Annual Foot Exam 1974 Diabetes: Annual Retina Eye Exam 1974 DTaP,Tdap,and Td Vaccines (1 - Tdap) 1983 Pneumococcal Vaccine: 50+ Years (1 of 2 - PCV) 1983 RSV Immunization Adult Patients (1 - Risk 50-74 years 1-dose series) 2014 Cholesterol Screening (Lipid Panel) 07/12/2022 HIV Screening 07/12/2022 Hepatitis C Screening 07/12/2022 Social Influencers of Health Screening 07/12/2022 Hypertension/CHF/CAD Annual BMP Blood Test 07/26/2022 Zoster Vaccines (2 of 3) 05/16/2024 03/21/2024, 07/10 Depression Screening 08/10/2024 Diabetes: Annual Urine Albumin-Creatinine Ratio (uACR) 12/23/2024 [...] Insurance [facility] Care Teams Chemistry Tutor Relationship Specialty Start Date End Date Kandi Newberry MD [address] [place] [address] PCP - General Internal Medicine 12/07/24
--- OUTSIDE RECORDS SUMMARY | 2025-06-05 18:11 | XMS_ITS | Encounter Summary ---
Author Organization [facility] Address [address] [facility] [address] [place] [address] Phone Care Team Providers Care Business Liaison Officer Name Role Phone Kandi Newberry MD Primary Care Provider Michael Blount MD Unavailable Will Woodward MD Unavailable [phone] Encounter Details Date Type Department Care Team (Late st Contact Info) Description 02/22/2020 Procedure Pass [facility] [address] [place] [address] Social History Tobacco Use Types [...] on filedocumented in this encounter Care Teams Business Liaison Officer Relationship Specialty Start Date End Date Kandi Newberry MD [address] [facility] [address] [place] [address] PCP - General Internal Medicine 06/30/19 Michael Blount MD 300 [facility] [address] [place] [address] Cardiology 09/16/19 Will Woodward MD [address] [facility] [address] [place] [address] Pulmonary Disease 09/16/19 documented as of this encounter Additional Source Comments The information contained in this document represents components of the legal health record. It is not the complete legal health record.[facility]
--- OUTSIDE RECORDS SUMMARY | 2025-06-05 18:11 | XMS_ITS | Clinical Summary ---
Author Organization [facility] Address [address] [facility] [address] [place] [address] Phone Care Team Providers Care Torpedo Specialist Name Role Phone Kandi Newberry MD Primary Care Provider Michael Blount MD Unavailable [phone] Will Woodward MD Unavailable [phone] Allergies No known active allergies Medications fluticasone [...] this topic Medical Devices Implanted Type Area Stroboroma Operator Device Identifier Shelf Expiration Date Model / Serial / Lot Modulus Cervical (6 X 15 X12 Mm 7 Degree) Nuvasive Implanted:Qty: 1 on 02/22/2020 by Samson Morales MD at [facility] Bilateral : Neck / [id number] / [id number] Nuvasive Spine Implanted:Qty: 1 on 02/22/2020 by Samson Morales MD at [facility] Bilateral : Neck / [id number] / Description:Plate cervical s pine Nuvasive Spine Implanted:Qty: 4 on 02/22/2020 by Samson Morales MD at [facility] Bilateral : Neck / [id number] / Description:Nuvasive spine a nterior cervical screw Procedures Procedure Name Priority Date/Time Associated Diagnosis Comments BASIC METABOLIC PANEL Routine 02/23/2020 5:10 AM EDT from Last 3 Months or Most Recently Relevant to Health Maintenance Results * (ABNORMAL) Basic metabolic panel (02/23/2020 5:10 AM EDT) SODIUM 139 135 - 145 mmol/L [facility] POTASSIUM 4.4 3.4 - 5.0 mmol/L [facility] CHLORIDE 101 98 - 108 mmol/L [facility] CO2 27 23 - 32 mmol/L [facility] BUN 12 8 - 25 mg/dL [facility] CREATININE 0.69 0.60 - 1.50 mg/dL [facility] GLUCOSE 129(H) 70 - 110 mg/dL [facility] CALCIUM 9.4 8.5 - 10.5 mg/dL [facility] EGFR 107 >59 mL/min/1. 73m2 [facility] Comment:Estimated glomerular filtration rate calculated using the CKD-EPI equation. ANION GAP 11 3 - 17 mmol/L [facility] Blood 02/23/2020 5:10 AM EDT 02/23/2020 5:35 AM EDT us Samson Morales MD LAB BLOOD ORDERABLES Final Res ult Performing Organization Address City/State/[facility] Co de Phone Number [address] [address] from Last 3 Months or Most Recently Relevant to Health Maintenance Insurance [employer] [place] [address] [place] [address] [place] [address] [place] [address] FEDERAL Advance Directives For more information, please contact: [phone] (9AM - 5PM [facility], Thursday-Thursday) * Full Code (Presumed) (Latest Code Status on File) Date Activated Date Inactivated Comments 02/22/2020 10:17 AM Care Teams Torpedo Specialist Relationship Specialty Start Date End Date Kandi Newberry MD 299 [facility] [address] [place] [address] PCP - General Internal Medicine 06/30/19 Michael Blount MD 300 [facility] [address] [place] [address] Cardiology 09/16/19 [place] [address] [place] [address] [address] [place] [address] Pulmonary Disease 09/16/19 Additional Source Comments The information contained in this document represents components of the legal health record. It is not the complete legal health record.[facility]
== END 2025-06-05 14:44 | disposition home or self-care (01) ==
LOC: HO.HMGCX 14:43
PROVIDERS: PCP Internal Medicine; Visit Provider Nurse Practitioner Family
DX: N20.0 Calculus of kidney (principal); N28.1 Cyst of kidney, acquired
CPT/HCPCS: 76775

== ENCOUNTER → 2025-06-05 14:56 | Outpatient (BNV) | payer BC, SELFPAY | PROVIDERS: PCP Internal Medicine; Visit Provider Radiology Diagnostic Radiology | DX: N20.0 Calculus of kidney (principal); N28.1 Cyst of kidney, acquired | CPT/HCPCS: 76775 ==

== ENCOUNTER 2025-06-15 14:53 | Outpatient (AMB) | payer BC, SELFPAY ==
--- OUTSIDE RECORDS SUMMARY | 2024-01-25 10:00 | XMS_ITS ---
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 Name Role Phone Carlota Guaman Unavailable [phone] LEXI NEWBERRY Unavailable [phone] Encounters Encounter Location Date Provider Diagnosis [facility] [address] [place] [address] 01/25/2024 LEXI NEWBERRY Plan Of Treatment Next Appt Details Provider Name:Carlota Guaman, 0 08/29/2025 03:15:00 PM, [facility], [address], [address], Progress Notes * PEARL AGUILAR PDOB:[birth year] (59 yo M)Acc No.[id number]:01/25/2024 Progress Notes Patient: Ab SALCEDO PEARL Monroy Provider: Patricia Newberry MD :1965 A ge:58 Y S ex:Male Date:01/25/2024 Address:[address] [place] [id number] Subjective: * Chief Complaints: * * Medical History: Objective: * Vitals: Assessment: Plan: * Treatment: * Images: Billing Information: * Visit Code: * Procedure Codes: Care Plan Details* * Electronic signature of ARPIT NEWBERRY MD on 06/15/2025 at 06:01 PM EST Sign off status: Pending * Provider: Patricia Newberry MD Date: 0 01/25/2024 Generated for Juanpablo lu/Osmar/Dyana on: 1 08/15/2024 06:01 PM EST
--- NOTE | 2025-06-15 14:56 | A.OFFVIS_ITS ---
Intake Visit Reasons: 1y/US Intake Note: Patient is present for 1Y/US Urology Medication:FINASTERIDE,TADALAFIL Antibiotic Allergy:NONE Blood Thinner:NONE Fish Receiver Required: No Allergies No Known Allergies Allergy (Verified 06/15/25 15:33) Medication List - Last Reconciled 06/15/25 by MARIO Gaming-KARAN albuterol sulfate 90 mcg/actuation 1 puff inhalation Q6H PRN finasteride 5 mg PO DAILY 90 days fluticasone propion-salmeterol 100-50 mcg/dose (Wixela Inhub) 1 ea inhalation BID furosemide 40 mg PO DAILY losartan 50 mg PO DAILY metoprolol succinate ER 25 mg PO DAILY tadalafil mg PO tirzepatide (Mounjaro) 7.5 mg subcut QWEEK HPI Comments Details: Bjorn is a very pleasant 59-year-old male patient of Dr. Newberry. He has a past medical history of prediabetes, paralysis of the right diaphragm, scoliosis, ED, hyperparathyroidism, asthma, nephrolithiasis, obstructive sleep apnea, hypertension, and obesity. He presents to the office today for follow-up of his elevated PSA and renal cysts. In discussion with the patient today reports to be doing and feeling well. He denies having had any bothersome urinary issues or concerns since his last office visit. He reports compliance with tadalafil and finasteride as prescribed. Recent renal imaging results reviewed with the patient today. 06/03 bilateral kidneys are normal in ech otexture. No hydronephrosis noted bilaterally. Right kidney with multiple anechoic lesions largest measuring 5.6 cm in the upper pole. Multifocal cysts, left kidney. Per radiology report. Patient with a history of an elevated PSA and has undergone previous workup to include retroperitoneal ultrasound 02/01 noting no nephrolithiasis or hydronephrosis noted bilaterally. There are 3 right simple anechoic cysts. The bladder is unremarkable. Prostate measures approximately 40 mL. Patient underwent prostate biopsy with Dr. Lema 05/04 noting 65 g prostate negative biopsy. He has since been on finasteride. He denies urinary urgency, urinary frequency, incontinence, nocturia, hematuria, dysuria, foul smelling urine, changes to urinary stream, fever, and or chills. He is happy with his current voiding parameters. He denies any known family history of prostate cancer. He otherwise offers no other issues or concerns at this time. PSAs are as follows: PSA: 12/02 6.1, 02/01 6.7 with % free PSA 14.5%, 06/03 4.1 [facility] Medical History Pre-diabetes Paralysis Scoliosis Erectile dysfunction History of hyperparathyroidism Asthma History of kidney stones Obstructive sleep apnea Essential (primary) hypertension Morbid (severe) obesity due to excess calories Review of Systems Const Reports as per HPI Eyes Reports no additional complaints ENT Reports no additional complaints Card Reports as per HPI Resp Reports as per HPI GI Reports no additional complaints Reports as per HPI Musc Reports no additional complaints Neuro Reports no additional complaints Psych Reports no additional complaints Endo Reports as per HPI Physical Exam Const General: cooperative, healthy appearing, comfortable, no acute distress, well developed, alert and awake Nutritional Appearance: obese Orientation/consciousness: patient oriented x3 Limitations: no limitations HEENT Head: Yes normal to inspection, Yes normocephalic and Yes atraumatic Ears: hearing grossly normal bilaterally Eyes General: appearance normal, both eyes and all related structures Neck Neck: Yes normal visual inspection and Yes trachea midline Chest Chest palpation & inspection: normal inspection of the chest Resp Effort & Inspection: normal respiratory effort and able to speak in complete sentences Cardio Rate: regular rate GI Inspection: Yes normal to inspection General: Yes no CVA tenderness Back/Spine/Pelvis Back: no CVA tenderness Skin General skin exam: no rashes or lesions noted Neuro General: patient oriented x3 Extrem General: Yes normal to inspection Psych Appearance: grossly normal and well kempt Mental Status: mental status grossly normal Speech and movement: Clear speech present Affect: normal affect Attitude: cooperative Thought process: Normal thought process present Thought content: Normal thought content present Insight: Fair insight present (Psych) Judgement: Fair judgement present (Psych) Results AMB Urinalysis, Automated UA Leukoctes 0 Elie/uL Last Edit by YOSELIN Nino on 06/15/25 15:34 UA Nitrite Negative Last Edit by YOSELIN Nino on 06/15/25 15:34 UA Urobilinogen 0.2 mg/dL Last Edit by YOSELIN Nino on 06/15/25 15:3 4 UA Protein 0 mg/dL Last Edit by YOSELIN Nino on 06/15/25 15:34 UA pH 6.0 Last Edit by YOSELIN Nino on 06/15/25 15:34 UA Blood 0 Yosef/uL Last Edit by YOSELIN Nino on 06/15/25 15:34 UA Specific [place] 1.015 Last Edit by Martina Velez CCM on 06/15/25 15: 34 UA Ketone Negative Last Edit by YOSELIN Nino on 06/15/25 15:34 UA Bilirubin 0 mg/dL Last Edit by YOSELIN Nino on 06/15/25 15:34 UA Glucose 0 mg/dL Last Edit by YOSELIN Nion on 06/15/25 15:34 Results Reviewed Results Reviewed: Laboratory Last Values Urine pH (Auto) 6.0 06/15/25 15:32 Specific [place] (Auto) 1.015 06/15/25 15:32 Urine Protein (Auto) 0 mg/dL 06/15/25 15:32 Glucose (UA)(Auto) 0 mg/dL 06/15/25 15:32 Urine Ketones (Auto) Negative 06/15/25 15:32 Urine Blood (Auto) 0 Yosef/uL 06/15/25 15:32 Urine Nitrite (Auto) Negative 06/15/25 15:32 Urine Bilirubin (Auto) 0 mg/dL 06/15/25 15:32 Urine Urobilinogen (Auto) 0.2 mg/dL 06/15/25 15:32 Leukocyte Esterase (Auto) 0 Elie/uL 06/15/25 15:32 Date of Service: 06/05/25 Procedure(s): US renal BI FINDINGS: RIGHT KIDNEY: 12 x 7 x 6 cm (SAG x AP x TRV). Normal echotexture. Renal cortical thickness is normal. No hydronephrosis. No gross solid or cystic lesion. LEFT KIDNEY: 13 x 9 x 6 cm (SAG x AP x TRV). Normal echotexture. Renal cortical thickness is normal. No hydronephrosis. There are multiple at least 3 anechoic lesions, the largest measures 5.6 cm in the upper pole. There is a 1.2 cm anechoic lesion in the mid portion and a 3.4 cm in the lateral midportion. No septations or nodular components were flow on color Doppler interrogation.. IMPRESSION: Multifocal cysts, left kidney. No hydronephrosis. No gross nephrolithiasis.. Assessment & Plan Assessment & Plan (1) Elevated PSA: Code(s): R97.20 - Elevated prostate specific antigen [PSA] Category: Medical (2) Bladder outlet obstruction: Code(s): N32.0 - Bladder-neck obstruction Category: Medical (3) Renal cyst: Code(s): N28.1 - Cyst of kidney, acquired Category: Medical (4) Nephrolithiasis: Code(s): N20.0 - Calculus of kidney Category: Medical Plan In office urinalysis results reviewed with the patient today; as noted above. Most recent PSA results reviewed with the patient today; as noted above. Most recent renal imaging results reviewed with the patient today. Patient currently denies any bothersome urinary issues or concerns. Reports be happy with current voiding parameters. Will continue with surveillance monitoring of PSAs as well as renal cysts. All questions were answered. Continue tadalafil finasteride as prescribed Will obtain PSA in 4 months. Follow-up in 4 months with PSA; or sooner with any issues, concerns, and or questions Orders: Orders PSA,Total (Free>4and<10) 4 Months R97.20 - Elevated prostate specific antigen [PSA] AMB Urinalysis Automated Today Z13.9 - Encounter for screening, unspecified Coding Level of Care Code Est Pt Level 3 (99840) Complex EM visit Add On G2211 Diagnoses Elevated PSA R97.20 Bladder outlet obstruction N32.0 Renal cyst N28.1 Nephrolithiasis N20.0
--- OUTSIDE RECORDS SUMMARY | 2025-06-15 18:01 | XMS_ITS | Patient Health Record ---
Author Organization [facility] [address] Address [address] [place] [address] Care Team Providers Care Voice And Data Technician Name Role Phone Carlota Guaman Unavailable [phone] LEXI NEWBERRY Unavailable [phone] GALE AKINSY Unavailable [phone] Allergies No Known Allergies Results Component Value Reference Range Notes UA+Urine Culture Reviewed date:12/01/2024 11:52:16 AM Interpretation: Performing Lab:[facility], [place], Phone - [phone], Director - Shannon Notes/Report: Clinical Information:SRC: Clinical Information:SRC: Specific Marble 1.011 1.005-1.030 pH 6.0 5.0-7.5 Urine-Color Yellow [...] Culture Reviewed date:12/02/2024 09:20:22 AM Interpretation: Performing Lab:[facility] [place], Phone - [phone], Director - Shannon Notes/Report: Clinical Information:SRC:UC Specific Marble TNP Test not performed. Patient was unable to provide a self-collected specimen for the requested testing. The following test(s) were not performed: pH TNP Test not perfor med Protein TNP Test not perfor med Glucose TNP Test not perfor med Ketones TNP Test not perfor med Urine Culture, Routine TNP Test not performed Comp. Metabolic Panel (14)-3 Reviewed date:12/02/2024 09:20:44 AM Interpretation: Performing Lab:[facility], [address] [place] [address], Phone - [phone], Director - Shannon Notes/Report: Clinical Information:SRC:UC Glucose [...] (SGPT) 27 0-44 IU/L CBC With Differential/Platel et-[id number] Reviewed date:12/02/2024 09:20:12 AM Interpretation: Performing Lab:[facility], [address] [place] [address], Phone - [phone], Director - Shannon Notes/Report: Clinical Information:SRC:UC WBC [...] % Immature Grans (Abs) 0.0 0.0-0.1 x10E3/uL PPC Hemoglobin A1C Reviewed date:06/07/2025 03:15:11 PM Interpretation:5.3 Performing Lab: Notes/Report: 5.3 HGA1C 5.3 PSA Total+% Free-[id number] Reviewed date:12/07/2024 08:44:14 AM Interpretation: Performing Lab:[facility] [place], [address] [place] [address] Avenue, [place], Phone - [phone], Director - Shannon Notes/Report: Clinical Information:SRC: Prostate Specific Ag 6.1 0.0-4.0 ng/mL Neri ECLIA methodology. . According to the [place] [employer], Serum PSA should decrease and [...] 4 and 10 ng/mL, by patient age (Catalona et al, ZACK 1998, 279:1542). % Free [...] The following test(s) were not performed: TEST: [id number] UA+Urine Culture Lipid Panel-[id number] Reviewed date:12/02/2024 09:20:33 AM Interpretation: Performing Lab:[facility] [place], [address], [place], Phone - [phone], Director - Shannon Notes/Report: Clinical Information:SRC:UC Cholesterol, Total 205 100-199 mg/dL Triglycerides 87 0-149 mg/dL HDL Cholesterol 64 >39 mg/dL VLDL Cholesterol Kosta 16 5-40 mg/dL LDL Chol Calc (NIH) 125 0-99 mg/dL Reason For Referral Diagnosis 1 Colon cancer screeni aly (Z12.11) Referral Organization [facility] [address] Referring Provider First Name LEXI Referring Provider Last Name NILAM Referring Provider Speciality Internal M edicine Referred Provider Specialty Gastroentero logy General Notes faxed to garcia YARBROUGH, [address] [place] [address], [phone], [phone], Neptali Riddle 08/18/2024 11:22:55 AM > Clinical Notes Stef Hernandez 12/2024 01:39:29 PM > [phone] phone, Stef Hernandez 09/14/2024 01:43:11 PM > [...] BY MOUTH AT BEDTIME NEEDED.; Duration: 90 06/06/2025 Active Tadalafil 20 MG TAKE 1 TABLET BY RIMA TH ONCE A DAY NEEDED.; Duration: 90 Active Mounjaro 12.5 MG/0.5ML 0.5 ML Subcutaneo us once weekly; Duration: 28 days Active Albuterol Sulfate HFA 108 (90 Base) MCG/ACT 2 puff as needed Inhalation every 4 hrs; Duration: 30 days 03/07/2025 Active Wixela Inhub 100-50 MCG/ACT INHALE 1 PUFF BY MOUTH TWICE DAILY; Duration: 90 days Active Metoprolol Succinate ER 25 MG TAKE 1 TABLET BY MOUTH EVERY DAY; Duration: 90 days Active Losartan Potassium 50 MG TAKE 1 TABLET B Y MOUTH DAILY; Duration: 90 days Active Furosemide 40 MG 1 tablet Orally Once a day; Duration: 90 days Active Finasteride 5 MG 1 tablet Orally Once a day Active Immunizations Vaccine Route Administration Date Status [...] FOR 20 Y RS. QUIT 2009 - /2 PPD FOR 20 Y RS. 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) Type 2 diabetes mellitus with unspecified complications (E11.8) Active confirmed Problem Hyperlipidemia (01012560) Hyperlipidemia, unspecified (E78.5) Active confirmed Problem Insomnia (131717215) Other insom haley (G47.09) Active confirmed Problem Chronic pain (07678805) Other chronic pain (G89.29) Active confirmed Problem Essential hypertension (54461690) Essential (primary) hypertension (I10) Active confirmed Problem Aortic aneurysm (15457777) Aortic aneurysm of unspecified site, without rupture (I71.9) Active confirmed Problem Exacerbation of asthma (068619434) Unspecified asthma with (acute) exacerbation (J45.901) Active confirmed Problem Adult health examination (607159968) Encounter for general adult medical examination without abnormal findings (Z00.00) Active confirmed Problem Morbid obesity (267051098) Morbid obesity (E66.01) Active confirmed Problem Hyperlipidaemia (89566938) Hyperlipidemia, unspecified hyperlipidemia type (E78.5) Active confirmed Problem Hyperlipoproteinemia (7244729) Acquired hyperlipoproteinemia (E78.5) Active confirmed Problem Adult health examination (361282811) Adult general medical exam (Z00.00) Active confirmed Problem Annual health maintenance examination (75817202) Annual physical exam (Z00.00) Active confirmed Problem Elevated PSA (400579296) Elevated PSA (R97.20) Active confirmed Problem Accelerated essentia l hypertension (20539871) Accelerated essential hypertension (I10) Active confirmed Problem Erectile dysfunction (disorder) (704779360) Erectile dysfunction, unspecified erectile dysfunction type (N52.9) Active confirmed Problem Aneurysm (18388562) Aneurysm (I72.9) Active con firmed Problem Renal stone (60872191) Renal stone (N20.0) Active confirmed Problem Body mass index 40+ - morbidly obese (613978895) BMI 40.0-44.9, adult (Z68.41) Active confirmed Problem Uncomplicated mild persistent asthma (938790413) Mild persistent asthma without complication (J45.30) Active confirmed Problem Abnormal metabolic state due to diabetes mellitus (205268904) Abnormal metabolic state due to diabetes mellitus (E11.9) Active confirmed Problem Elevated fasting lipid profile (236002428122) Elevated lipids (E78.5) Active confirmed Problem Screening for malignant neoplasm of prostate (644875388) Encounter for prostate cancer screening (Z12.5) Active confirmed Problem Lipid screening (306309127) Lipid screening (Z13.220) Active confirmed Problem Low back pain (finding) (201951423) Lumbar back pain (M54.50) Active confirmed Vital Signs Heart Rate 89 /min 06/07/2025 Oximetry 97 % 06/07/2025 Blood pressure diastolic 84 mm Hg 06/07/2025 Height 66 in 06/07/2025 Blood pressure systolic 136 mm Hg 06/07/2025 Weight 270.6 lbs 06/07/2025 BMI 43.67 kg/m2 06/07/2025 Encounters Encounter Location Date Provider Diagnosis [facility] [address] [place] [address] 07/04/2024 LEXI NEWBERRY Shortness of breath R06.02 ; Hyperlipidemia, unspecified E78.5 ; Morbid obesity E66.01 ; Body mass index (BMI) 40.0-44.9, adult Z68.41 and Encounter for immunization Z23 [facility] [address] [address] 08/18/2024 LEXI NEWBERRY Annual physical exam Z00.00 ; Lipid screening Z13.220 ; Accelerated essential hypertension I10 ; Encounter for prostate cancer screening Z12.5 and Morbid obesity E66.01 [facility] [address] [address] 10/24/2024 Carlota Svrcek Sore throat J02.9 [facility] [address] 11/24/2024 Carlota Svrcek Type 2 diabetes jessica itus with unspecified complications E11.8 ; Essential (primary) hypertension I10 ; Morbid obesity E66.01 ; Elevated PSA R97.20 ; Erectile dysfunction, unspecified erectile dysfunction type N52.9 ; Other insomnia G47.09 and Mild persistent asthma without complication J45.30 [facility] [address] [address] 01/04/2025 Carlota Svrcek Essential (primary) hypertension I10 ; Type 2 diabetes mellitus with unspecified complications E11.8 ; Morbid obesity E66.01 and Mild persistent asthma without complication J45.30 [facility] [address] [address] 03/07/2025 Carlota Svrcek Type 2 diabetes jessica itus with unspecified complications E11.8 ; Elevated PSA R97.20 ; Aortic aneurysm of unspecified site, without rupture I71.9 ; Mild persistent asthma without complication J45.30 and Encounter for examination of blood pressure without abnormal findings Z01.30 [facility] [address] [address] 06/07/2025 Carlota Svrcek Type 2 diabetes jessica itus with unspecified complications E11.8 ; Elevated PSA R97.20 ; Aortic aneurysm of unspecified site, without rupture I71.9 ; Encounter for examination of blood pressure without abnormal findings Z01.30 ; Morbid obesity E66.01 ; BMI 40.0-44.9, adult Z68.41 and Encounter for weight loss counseling Z71.[address] [facility] [address] [place] [address] 06/27/2024 TALAL NEWBERRY [facility] [address] [place] [address] 07/04/2024 TALAL NEWBERRY Type 2 diabetes jessica itus with unspecified complications E11.[address] [facility] [address] [place] [address] 07/21/2024 ROSALINA AKINS [facility] [address] [place] [address] 08/09/2024 TALAL NEWBERRY [facility] [address] [facility] [address] [place] [phone] 08/18/2024 TALAL NEWBERRY [facility] [address] [place] [address] 09/02/2024 TALAL NEWBERRY [facility] [address] [place] [address] 09/14/2024 TALAL NEWBERRY [facility] [address] [place] [address] 10/12/2024 TALAL NEWBERRY [facility] [address] [facility] [address] [place] [phone] 10/24/2024 Carlota Svrcek [facility] [address] [place] [address] 11/22/2024 Carlota Svrcek [facility] [address] [place] [address] 12/19/2024 Carlota Svrcek Type 2 diabetes jessica itus with unspecified complications E11.8 [facility] [address] [place] [address] 12/20/2024 Carlota Svrcek Type 2 diabetes jessica itus with unspecified complications E11.8 [facility] [address] [place] [address] 02/13/2025 Carlota Svrcek [facility] [address] [place] [address] 05/29/2025 Carlota Guaman Type 2 diabetes jessica itus with unspecified [...] Wixela Inhub 100-50 MCG/ACT. Currently sees a circular saw filer. Will follow with circular saw filer. # Obstructive Sleep Apnea: Stable. States wearing [...] contact the office and be reevaluated. 08/18/2024 Annual physical exam (ICD-10 - Z00.00) [...] log exercise and discussed fitness Apps like [employer] which can help keep log off calories [...] Dictation was accomplished with the use of [employer] voice recognition software, prone to medical misidentifications [...] Dictation was accomplished with the use of [employer] voice recognition software, prone to medical misidentifications [...] Dictation was accomplished with the use of [employer] voice recognition software, prone to medical misidentifications [...] Dictation was accomplished with the use of [employer] voice recognition software, prone to medical misidentifications [...] Dictation was accomplished with the use of [employer] voice recognition software, prone to medical misidentifications [...] mellitus with unspecified complications (ICD-10 - E11.8) 06/07/2025 Type 2 diabetes mellitus with unspecified complications (ICD-10 - E11.8) #Type 2 diabetes. Now on Mounjaro 12.5 mg as of this week. Tolerating it well. A1c 5.3. He has still struggled with weight loss. Discussed strategies for continued lifestyle modifications. Increase exercise and focus on healthy diet. WIll continue MOunjaro 12.5 mg and f/u in 3 months for CPE with labs. #Elevated PSA. Following with urology. Prostate bx recently done and negative. PSA repeat has improved some. Has follow up in the next week. Now on finasteride #Aortic aneurysm. Had appointment with surgeon and planning to continue to monitor. Had updated imaging and reports aneurysm has been stable however still within the window for surgical intervention. #Morbid obesity. Discussed at length. Mounjaro just increased to 12.5 mg dose this week. WIll continue to work on lifestyle modifications. Increase exercise regimen. Focus on lean protein/veggies/frui t and hydration. Stress management. Follow up in 3 months. Case discussed with collaborating physician Patricia Newberry who reviewed the assessment and plan. Chart, medications, labs, vital signs reviewed. Dictation was accomplished with the use of [employer] voice recognition software, prone to medical misidentifications [...] Dictation was accomplished with the use of [employer] voice recognition software, prone to medical misidentifications and grammatical errors. This is unintentional and the practitioner does try to identify and correct these, but some could still be present. Please do not hesitate to contact practitioner for clarification. All questions answered to patients satisfaction. Patient verbalized understanding of diagnosis and treatments explained. To call sooner prior to next visit it any questions/concerns arise. 06/07/2025 Elevated PSA (ICD-10 - R97.20) #Type 2 diabetes. Now on Mounjaro 12.5 mg as of this week. Tolerating it well. A1c 5.3. He has still struggled with weight loss. Discussed strategies for continued lifestyle modifications. Increase exercise and focus on healthy diet. WIll continue MOunjaro 12.5 mg and f/u in 3 months for CPE with labs. #Elevated PSA. Following with urology. Prostate bx recently done and negative. PSA repeat has improved some. Has follow up in the next week. Now on finasteride #Aortic aneurysm. Had appointment with surgeon and planning to continue to monitor. Had updated imaging and reports aneurysm has been stable however still within the window for surgical intervention. #Morbid obesity. Discussed at length. Mounjaro just increased to 12.5 mg dose this week. WIll continue to work on lifestyle modifications. Increase exercise regimen. Focus on lean protein/veggies/frui t and hydration. Stress management. Follow up in 3 months. Case discussed with collaborating physician Patricia Newberry who reviewed the assessment and plan. Chart, medications, labs, vital signs reviewed. Dictation was accomplished with the use of [employer] voice recognition software, prone to medical misidentifications [...] mellitus with unspecified complications (ICD-10 - E11.8) 10/24/2024 Sore throat (ICD-10 - J02.9) #Pharyngitis. [...] Dictation was accomplished with the use of [employer] voice recognition software, prone to medical misidentifications [...] with unspecified complications (ICD-10 - E11.8) 08/18/2024 Lipid screening (ICD-10 - Z13.220) Patient [...] log exercise and discussed fitness Apps like [employer] which can help keep log off calories [...] and hemoglobin A1c testing might be appropriate. 06/07/2025 Aortic aneurysm of unspecified site, without rupture (ICD-10 - I71.9) #Type 2 diabetes. Now on Mounjaro 12.5 mg as of this week. Tolerating it well. A1c 5.3. He has still struggled with weight loss. Discussed strategies for continued lifestyle modifications. Increase exercise and focus on healthy diet. WIll continue MOunjaro 12.5 mg and f/u in 3 months for CPE with labs. #Elevated PSA. Following with urology. Prostate bx recently done and negative. PSA repeat has improved some. Has follow up in the next week. Now on finasteride #Aortic aneurysm. Had appointment with surgeon and planning to continue to monitor. Had updated imaging and reports aneurysm has been stable however still within the window for surgical intervention. #Morbid obesity. Discussed at length. Mounjaro just increased to 12.5 mg dose this week. WIll continue to work on lifestyle modifications. Increase exercise regimen. Focus on lean protein/veggies/frui t and hydration. Stress management. Follow up in 3 months. Case discussed with collaborating physician Patricia Newberry who reviewed the assessment and plan. Chart, medications, labs, vital signs reviewed. Dictation was accomplished with the use of [employer] voice recognition software, prone to medical misidentifications [...] Dictation was accomplished with the use of [employer] voice recognition software, prone to medical misidentifications [...] Dictation was accomplished with the use of [employer] voice recognition software, prone to medical misidentifications [...] Dictation was accomplished with the use of [employer] voice recognition software, prone to medical misidentifications [...] Wixela Inhub 100-50 MCG/ACT. Currently sees a circular saw filer. Will follow with circular saw filer. # Obstructive Sleep Apnea: Stable. States wearing [...] log exercise and discussed fitness Apps like [employer] which can help keep log off calories [...] Wixela Inhub 100-50 MCG/ACT. Currently sees a circular saw filer. Will follow with circular saw filer. # Obstructive Sleep Apnea: Stable. States wearing [...] Dictation was accomplished with the use of [employer] voice recognition software, prone to medical misidentifications [...] Dictation was accomplished with the use of [employer] voice recognition software, prone to medical misidentifications and grammatical errors. This is unintentional and the practitioner does try to identify and correct these, but some could still be present. Please do not hesitate to contact practitioner for clarification. All questions answered to patients satisfaction. Patient verbalized understanding of diagnosis and treatments explained. To call sooner prior to next visit it any questions/concerns arise. 06/07/2025 Encounter for examination of blood pressure without abnormal findings (ICD-10 - Z01.30) #Type 2 diabetes. Now on Mounjaro 12.5 mg as of this week. Tolerating it well. A1c 5.3. He has still struggled with weight loss. Discussed strategies for continued lifestyle modifications. Increase exercise and focus on healthy diet. WIll continue MOunjaro 12.5 mg and f/u in 3 months for CPE with labs. #Elevated PSA. Following with urology. Prostate bx recently done and negative. PSA repeat has improved some. Has follow up in the next week. Now on finasteride #Aortic aneurysm. Had appointment with surgeon and planning to continue to monitor. Had updated imaging and reports aneurysm has been stable however still within the window for surgical intervention. #Morbid obesity. Discussed at length. Mounjaro just increased to 12.5 mg dose this week. WIll continue to work on lifestyle modifications. Increase exercise regimen. Focus on lean protein/veggies/frui t and hydration. Stress management. Follow up in 3 months. Case discussed with collaborating physician Patricia Newberry who reviewed the assessment and plan. Chart, medications, labs, vital signs reviewed. Dictation was accomplished with the use of [employer] voice recognition software, prone to medical misidentifications [...] Dictation was accomplished with the use of [employer] voice recognition software, prone to medical misidentifications and grammatical errors. This is unintentional and the practitioner does try to identify and correct these, but some could still be present. Please do not hesitate to contact practitioner for clarification. All questions answered to patients satisfaction. Patient verbalized understanding of diagnosis and treatments explained. To call sooner prior to next visit it any questions/concerns arise. 06/07/2025 Morbid obesity (ICD-10 - E66.01) #Type 2 diabetes. Now on Mounjaro 12.5 mg as of this week. Tolerating it well. A1c 5.3. He has still struggled with weight loss. Discussed strategies for continued lifestyle modifications. Increase exercise and focus on healthy diet. WIll continue MOunjaro 12.5 mg and f/u in 3 months for CPE with labs. #Elevated PSA. Following with urology. Prostate bx recently done and negative. PSA repeat has improved some. Has follow up in the next week. Now on finasteride #Aortic aneurysm. Had appointment with surgeon and planning to continue to monitor. Had updated imaging and reports aneurysm has been stable however still within the window for surgical intervention. #Morbid obesity. Discussed at length. Mounjaro just increased to 12.5 mg dose this week. WIll continue to work on lifestyle modifications. Increase exercise regimen. Focus on lean protein/veggies/frui t and hydration. Stress management. Follow up in 3 months. Case discussed with collaborating physician Patricia Newberry who reviewed the assessment and plan. Chart, medications, labs, vital signs reviewed. Dictation was accomplished with the use of [employer] voice recognition software, prone to medical misidentifications [...] Dictation was accomplished with the use of [employer] voice recognition software, prone to medical misidentifications [...] Dictation was accomplished with the use of [employer] voice recognition software, prone to medical misidentifications [...] log exercise and discussed fitness Apps like [employer] which can help keep log off calories [...] Wixela Inhub 100-50 MCG/ACT. Currently sees a circular saw filer. Will follow with circular saw filer. # Obstructive Sleep Apnea: Stable. States wearing [...] Wixela Inhub 100-50 MCG/ACT. Currently sees a circular saw filer. Will follow with circular saw filer. # Obstructive Sleep Apnea: Stable. States wearing [...] log exercise and discussed fitness Apps like [employer] which can help keep log off calories [...] Dictation was accomplished with the use of [employer] voice recognition software, prone to medical misidentifications and grammatical errors. This is unintentional and the practitioner does try to identify and correct these, but some could still be present. Please do not hesitate to contact practitioner for clarification. All questions answered to patients satisfaction. Patient verbalized understanding of diagnosis and treatments explained. To call sooner prior to next visit it any questions/concerns arise. 06/07/2025 BMI 40.0-44.9, adult (ICD-10 - Z68.41) #Type 2 diabetes. Now on Mounjaro 12.5 mg as of this week. Tolerating it well. A1c 5.3. He has still struggled with weight loss. Discussed strategies for continued lifestyle modifications. Increase exercise and focus on healthy diet. WIll continue MOunjaro 12.5 mg and f/u in 3 months for CPE with labs. #Elevated PSA. Following with urology. Prostate bx recently done and negative. PSA repeat has improved some. Has follow up in the next week. Now on finasteride #Aortic aneurysm. Had appointment with surgeon and planning to continue to monitor. Had updated imaging and reports aneurysm has been stable however still within the window for surgical intervention. #Morbid obesity. Discussed at length. Mounjaro just increased to 12.5 mg dose this week. WIll continue to work on lifestyle modifications. Increase exercise regimen. Focus on lean protein/veggies/frui t and hydration. Stress management. Follow up in 3 months. Case discussed with collaborating physician Patricia Newberry who reviewed the assessment and plan. Chart, medications, labs, vital signs reviewed. Dictation was accomplished with the use of [employer] voice recognition software, prone to medical misidentifications and grammatical errors. This is unintentional and the practitioner does try to identify and correct these, but some could still be present. Please do not hesitate to contact practitioner for clarification. All questions answered to patients satisfaction. Patient verbalized understanding of diagnosis and treatments explained. To call sooner prior to next visit it any questions/concerns arise. 06/07/2025 Encounter for weight loss counseling (ICD-10 - Z71.3) #Type 2 diabetes. Now on Mounjaro 12.5 mg as of this week. Tolerating it well. A1c 5.3. He has still struggled with weight loss. Discussed strategies for continued lifestyle modifications. Increase exercise and focus on healthy diet. WIll continue MOunjaro 12.5 mg and f/u in 3 months for CPE with labs. #Elevated PSA. Following with urology. Prostate bx recently done and negative. PSA repeat has improved some. Has follow up in the next week. Now on finasteride #Aortic aneurysm. Had appointment with surgeon and planning to continue to monitor. Had updated imaging and reports aneurysm has been stable however still within the window for surgical intervention. #Morbid obesity. Discussed at length. Mounjaro just increased to 12.5 mg dose this week. WIll continue to work on lifestyle modifications. Increase exercise regimen. Focus on lean protein/veggies/frui t and hydration. Stress management. Follow up in 3 months. Case discussed with collaborating physician Patricia Newberry who reviewed the assessment and plan. Chart, medications, labs, vital signs reviewed. Dictation was accomplished with the use of [employer] voice recognition software, prone to medical misidentifications [...] Dictation was accomplished with the use of [employer] voice recognition software, prone to medical misidentifications [...] 11/25/2021 APTT 09/11/2020 CBC (COMPLETE BLOOD COUNT) 09/11/2020 CBC (COMPLETE BLOOD COUNT) 07/01/2022 CBC (COMPLETE BLOOD COUNT) 12/17/2020 CBC (COMPLETE BLOOD COUNT) 08/31/2018 CBC (COMPLETE BLOOD COUNT) 06/29/2018 COMPREHENSIVE METABOLIC PANEL 08/31/2018 COMPREHENSIVE METABOLIC PANEL 12/17/2020 COMPREHENSIVE METABOLIC PANEL 09/11/2020 COMPREHENSIVE METABOLIC PANEL 06/29/2018 CRP, HIGH SENSITIVITY 08/31/2018 HEMOGLOBIN A1C 08/31/2018 HEMOGLOBIN A1C 12/17/2020 HEMOGLOBIN A1C 06/29/2018 INSULIN 08/31/2018 LIPID PANEL 12/17/2020 LIPID PANEL 08/31/2018 LIPID PANEL 06/29/2018 PSA, SCREEN 06/29/2018 PSA, [...] LIPID PANEL, STANDARD 03/21/2024 LIPID PANEL, STANDARD 06/07/2025 LIPID PANEL, STANDARD 03/31/2022 LIPID PANEL, STANDARD 06/06/2021 LIPID PANEL, STANDARD 09/01/2022 LIPID PANEL, STANDARD 01/26/2023 LIPID PANEL, STANDARD 10/19/2023 COMPREHENSIVE METABOLIC PANEL 03/21/2024 COMPREHENSIVE METABOLIC PANEL 10/19/2023 COMPREHENSIVE METABOLIC PANEL 01/26/2023 COMPREHENSIVE METABOLIC PANEL 09/01/2022 COMPREHENSIVE METABOLIC PANEL 03/31/2022 COMPREHENSIVE METABOLIC PANEL 08/18/2024 COMPREHENSIVE METABOLIC PANEL 06/07/2025 CBC (INCLUDES DIFF/PLT) 06/07/2025 CBC (INCLUDES DIFF/PLT) 08/18/2024 CBC (INCLUDES DIFF/PLT) 03/31/2022 CBC (INCLUDES DIFF/PLT) 09/01/2022 CBC (INCLUDES DIFF/PLT) 01/26/2023 CBC (INCLUDES DIFF/PLT) 10/19/2023 CBC (INCLUDES DIFF/PLT) 03/21/2024 URINALYSIS, COMPLETE 10/19/2023 URINALYSIS, COMPLETE 09/01/2022 URINALYSIS, COMPLETE 03/31/2022 URINALYSIS, COMPLETE 01/26/2023 URINALYSIS, COMPLETE W/REFLEX TO CULTURE 07/01/2022 HEMOGLOBIN A1c 06/07/2025 HEMOGLOBIN A1c 01/26/2023 HEMOGLOBIN A1c 06/06/2021 PSA (FREE AND TOTAL) 08/18/2024 PSA, TOTAL 03/31/2022 TSH W/REFLEX TO FT4 06/07/2025 HEPATITIS B ANTIBODY, QUANT 09/11/2020 HEPATITIS A ANTIBODY TOTAL 09/11/2020 US Duplex Venous Study Bilat 09/11/2020 PPC Hemoglobin A1C 01/04/2025 Future Test Test Name Order Date COMPLETE URINALYSIS 09/22/2020 Next Appt Details Provider Name:Carlota Guaman, 0 08/29/2025 03:15:00 PM, [address] [facility], [facility] [address], [place], [address], Insurance Providers Payer Name Payer Address Payer Phone Subscriber Number Group Number Insured Name Patient Relationship to Insured Coverage Start Date Coverage End Date [facility] and [facility] [address] [place] [address] [phone] [id number] PEARL AGUILAR Self - patient is the [...]
--- OUTSIDE RECORDS SUMMARY | 2025-06-15 18:01 | XMS_ITS | Clinical Summary ---
Author Organization [facility] [address] [facility] Address [address] [place] [address] Phone Care Team Providers Care Rn Diabetes Name Role Phone Kandi Newberry MD Primary Care Provider [phone] Allergies Active Allergy Reactions Criticality Noted Date [...] PROCEDURE: HISTORICAL PARATHYROIDECTOMY OTHER SURGICAL HISTORY PROCEDURE: AK LAMOPLASTY CERVICAL DCMPRN CORD 2/> SEG RCNSTJ OTHER SURGICAL HISTORY 2020 PROCEDURE: AK EXC NEUROMA MAJOR PERIPHERAL NRV XCP SCIATIC; [...] patient's age to complete this topic Insurance [facility] Care Teams Rn Diabetes Relationship Specialty Start Date End Date Kandi Newberry MD [address] [place] [address] PCP - General Internal Medicine 12/07/24
--- OUTSIDE RECORDS SUMMARY | 2025-06-15 18:01 | XMS_ITS | Encounter Summary ---
Author Organization [facility] Address [address] [facility] [address] [place] [address] Phone Care Team Providers Care Clother In Name Role Phone Kandi Newberry MD Primary Care Provider [phone] Michael Blount MD Unavailable Will Woodward MD Unavailable [phone] Encounter Details Date Type Department Care Team (Late st Contact Info) Description 02/22/2020 Procedure Pass [facility] PERIOPERATIVE DEPT [address] [place] [address] Social History Tobacco Use Types [...] on filedocumented in this encounter Care Teams Clother In Relationship Specialty Start Date End Date Kandi Newberry MD [address] [facility] [address] [place] [address] PCP - General Internal Medicine 06/30/19 Michael Blount MD [address] [facility] [address] [place] [address] Cardiology 09/16/19 Will Woodward MD [address] [facility] [address] [place] [address] Pulmonary Disease 09/16/19 documented as of this encounter Additional Source Comments The information contained in this document represents components of the legal health record. It is not the complete legal health record.[facility]
--- OUTSIDE RECORDS SUMMARY | 2025-06-15 18:01 | XMS_ITS | Clinical Summary ---
Author Organization [facility] Address [address] [facility] [address] [place] [address] Phone Care Team Providers Care Circulation Librarian Name Role Phone Kandi Newberry MD Primary Care Provider [phone] Michael Blount MD Unavailable Will Woodward MD Unavailable [phone] Allergies No known active allergies Medications fluticasone [...] this topic Medical Devices Implanted Type Area Overhead Garage Door Hanger Device Identifier Shelf Expiration Date Model / Serial / Lot Modulus Cervical (6 X 15 X12 Mm 7 Degree) Nuvasive Implanted:Qty: 1 on 02/22/2020 by Samson Morales MD at [facility] Bilateral : Neck / [id number] / [id number] Nuvasive Spine Implanted:Qty: 1 on 02/22/2020 by Samson Morales MD at [facility] Bilateral : Neck / [id number] / Description:Plate cervical s pine Nuvasive Spine Implanted:Qty: 4 on 02/22/2020 by Samson Morales MD at [facility] Bilateral : Neck / [id number] / Description:Nuvasive spine a nterior cervical screw Procedures Procedure Name Priority Date/Time Associated Diagnosis Comments BASIC METABOLIC PANEL (BMP) Routine 02/23/2020 5:10 AM EDT from Last 3 Months or Most Recently Relevant to Health Maintenance Results * (ABNORMAL) Basic metabolic panel (02/23/2020 5:10 AM EDT) SODIUM 139 135 - 145 mmol/L [facility] POTASSIUM 4.4 3.4 - 5.0 mmol/L [facility] CHLORIDE 101 98 - 108 mmol/L [facility] CO2 27 23 - 32 mmol/L [facility] BUN 12 8 - 25 mg/dL [facility] CREATININE 0.69 0.60 - 1.50 mg/dL [facility] GLUCOSE 129(H) 70 - 110 mg/dL [facility] CALCIUM 9.4 8.5 - 10.5 mg/dL [facility] EGFR 107 >59 mL/min/1. 73m2 [facility] Comment:Estimated glomerular filtration rate calculated using the CKD-EPI equation. ANION GAP 11 3 - 17 mmol/L [facility] Blood 02/23/2020 5:10 AM EDT 02/23/2020 5:35 AM EDT us Samson Morales MD LAB BLOOD BKR ORDERABLES Final Result [address] [address] from Last 3 Months or Most Recently Relevant to Health Maintenance Insurance [facility] [address] [place] [address] [place] [address] Advance Directives For more information, please contact: [phone] (9AM - 5PM [facility], Thursday-Thursday) * Full Code (Presumed) (Latest Code Status on File) Date Activated Date Inactivated Comments 02/22/2020 10:17 AM Care Teams Circulation Librarian Relationship Specialty Start Date End Date Kandi Newberry MD [address] [facility] [address] [place] [address] PCP - General Internal Medicine 06/30/19 Michael Blount MD [address] [facility] [address] [place] [address] Cardiology 09/16/19 [place] [address] [place] [address] [address] [place] [address] Pulmonary Disease 09/16/19 Additional Source Comments The information contained in this document represents components of the legal health record. It is not the complete legal health record.[facility]
== END 2025-06-15 15:27 | disposition home or self-care (01) ==
LOC: HO.HUSH 14:54
PROVIDERS: PCP Internal Medicine; Visit Provider Nurse Practitioner Family
DX: R97.20 Elevated prostate specific antigen [PSA] (principal); N32.0 Bladder-neck obstruction; N28.1 Cyst of kidney, acquired; N20.0 Calculus of kidney; Z13.9 Encounter for screening, unspecified
CPT/HCPCS: 99213

== ENCOUNTER → 2025-06-15 14:53 | Outpatient (BNVA) | payer BC, SELFPAY | PROVIDERS: PCP Internal Medicine; Visit Provider Nurse Practitioner Family | DX: N32.0 Bladder-neck obstruction (principal) | CPT/HCPCS: 81003 ==